=== PATIENT | male | born 1970 | race Caucasian/White ===

== ENCOUNTER 2016-09-01 15:44 | Emergency (ER) | payer MEDICARE, MEDICAID ==
[2016-09-01] MEDS ORDERED: NS 0.9% 1000 ML* 1,000 ML IV ONE ×2 (16:05→17:06)
--- NOTE | 2016-09-01 16:43 | RAD ---
INDICATION: Near syncope. Cardiovascular disease and chronic obstructive pulmonary disease. Tobacco use. COMPARISON: May 06, 2016 TECHNIQUE: Dual energy PA and routine lateral views of the chest were obtained. REPORT: Clear lungs and pleural spaces. Negative for pneumothorax. The heart, pulmonary vasculature, and mediastinal contours are unremarkable. Unremarkable osseous structures and soft tissue contours. IMPRESSION: No evidence for acute intrathoracic disease.
[2016-09-01 16:49] LABS: Hematocrit 41 % (42-52); Hemoglobin 14.7 g/dl (14.0-18.0); Mean Corpuscular HGB Conc 36 g/dl (31-36); Mean Corpuscular Hemoglobin 30 pg (27-31); Mean Corpuscular Volume 86 fL (80-94); Mean Platelet Volume 7 um3 (7.4-10.4); Red Blood Count 4.83 10^6/ul (4.0-5.4); Red Cell Distribution Width 14 % (10.5-15)
[2016-09-01 17:09] LABS: Albumin 3.8 g/dL (3.2-5.2); Ammonia 46 mol/L (16-53); BUN/Creatinine Ratio 14.5 (8-20); Calcium 9.2 mg/dL (8.6-10.3); EGFR African American 128.8 (>60); EGFR Non-African American 100.2 (>60); Globulin 2.3 g/dL (2-4); Magnesium 2.2 mg/dL (1.9-2.7); Potassium 3.9 mmol/L (3.5-5.0); Total Bilirubin 0.4 mg/dL (0.2-1.0); Total Protein 6.1 g/dL (6.4-8.9)
[2016-09-01 17:11] LABS: B Type Natriuretic Peptide 9 pg/mL
[2016-09-01 17:26] LABS: TSH (Thyroid Stimulating Horm) 1.31 mcIU/mL (0.34-5.60)
[2016-09-01 18:39] VITALS: BP 123/88
--- NOTE | 2016-09-01 19:06 | ED ---
Johann Maier Anna, scribed for Varinder Abdi MD on 09/01/16 at 1613 . Syncope/Near Syncope - HPI Summary HPI Summary: Patient is a 45 y/o male coming to [facility] following intermittent near syncopal episodes that began three days ago. He has been experiencing chills, dizziness, lightheadedness, coughing, diarrhea, and SOB for three days. He experiences some left-sided chest pain when coughing. Denies nausea, vomiting, fever, rhinorrhea. - History Of Current Complaint Chief Complaint: EDDizziness Time Seen by Provider: 09/01/16 16:05 Hx Obtained From: Patient - Allergies/Home Medications Allergies/Adverse Reactions: Allergies Allergy/AdvReac Type Severity Reaction Status Date / Time Phenytoin [From Dilantin] Allergy Severe Swelling Verified 09/01/16 16:01 Of Face,Lips,& Throat Etodolac Allergy Intermediate Swelling Verified 09/01/16 16:01 Of Face,Lips,& Throat Ketorolac Allergy Swelling Verified 09/01/16 16:01 Of Face,Lips,& Throat Ketorolac Tromethamine Allergy Anaphylatic Verified 09/01/16 16:01 [From Toradol] Shock PMH/Surg Hx/FS Hx/Imm Hx Endocrine/Hematology History: Denies: Hx Anticoagulant Therapy, Hx Blood Disorders, Hx Diabetes, Hx Thyroid Disease Cardiovascular History: Reports: Hx Angina, Hx Coronary Artery Disease, Hx Hypercholesterolemia, Hx Hypertension, Hx Myocardial Infarction, Other Cardiovascular Problems/Disorders - cva Denies: Hx Pacemaker/ICD, Hx Valvular Heart Disease Respiratory History: Reports: Hx Chronic Obstructive Pulmonary Disease (COPD) Denies: Hx Asthma GI History: Reports: Hx Ulcer History: Denies: Hx Renal Disease Musculoskeletal History: Reports: Hx Arthritis Sensory History: Denies: Hx Hearing Aid Neurological History: Reports: Hx CVA, Hx Seizures, Other Neuro Impairments/ Disorders - BRAIN TUMOR Denies: Hx Dementia Psychiatric History: Denies: Hx Panic Disorder, Hx Substance Abuse - Cancer History Cancer Type, Location and Year: 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 Hx Chemotherapy: No Hx Radiation Therapy: No - Surgical History Surgery Procedure, Year, and Place: BRAIN-STEALTH & BIOPSIES(SEVERAL) @ [facility] [place]; BOTH ELBOWS; Rt SHOULDER-ROTATOR; BOTH KNEES ACL REPAIR, BILAT KNEE REPLACEMENT - Immunization History Date of Tetanus Vaccine: Unsure Infectious Disease History: No Infectious Disease History: Reports: Hx of Known/Suspected MRSA - Right arm lump , 2002 Denies: Hx Clostridium Difficile, Hx Hepatitis, Hx Human Immunodeficiency Virus (HIV), Hx Shingles, Hx Tuberculosis, Hx Known/Suspected VRE, Hx Known/ Suspected VRSA, History Other Infectious Disease, Traveled Outside the [place] in Last 30 Days - Family History Known Family History: Positive: Cardiac Disease, Hypertension, Diabetes, Other - [place] - Social History Lives: With Family Alcohol Use: None Hx Substance Use: No Substance Use Type: Reports: None Hx Tobacco Use: Yes Smoking Status (MU): Heavy Every Day Tobacco Smoker Type: Cigarettes Amount Used/How Often: 1 ppd Review of Systems Positive: Chills Positive: Chest Pain Positive: Shortness Of Breath, Cough Positive: Diarrhea Neurological: Other - dizziness, lightheadedness Positive: Syncope - near All Other Systems Reviewed And Are Negative: Yes Physical Exam - Summary Physical Exam Summary: VITAL SIGNS: Reviewed. GENERAL: Patient is an obese male who is lying comfortable in the stretcher. Patient is not in any acute respiratory distress. HEAD AND FACE: No signs of trauma. No ecchymosis, hematomas or skull depressions. No sinus tenderness. EYES: PERRLA, EOMI x 2, No injected conjunctiva, no nystagmus. EARS: Hearing grossly intact. Ear canals and tympanic membranes are within normal limits. MOUTH: Oropharynx within normal limits. NECK: Supple, trachea is midline, no adenopathy, no JVD, no carotid bruit, no c- spine tenderness, neck with full ROM. CHEST: Symmetric, no tenderness at palpation LUNGS: Clear to auscultation bilaterally. No wheezing or crackles. CVS: Regular rate and rhythm, S1 and S2 present, no murmurs or gallops appreciated. ABDOMEN: Soft, non-tender. No signs of distention. No rebound no guarding, and no masses palpated. Bowel sounds are normal. EXTREMITIES: FROM in all major joints, no edema, no cyanosis or clubbing. NEURO: Alert and oriented x 3. No acute neurological deficits. Speech is normal and follows commands. SKIN: Dry and warm Triage Information Reviewed: Yes Vital Signs On Initial Exam: Initial Vitals Temp Pulse Resp BP Pulse Ox 98.3 F 80 16 119/67 96 09/01/16 15:57 09/01/16 15:57 09/01/16 15:57 09/01/16 15:57 09/01/16 15:57 Vital Signs Reviewed: Yes Diagnostics - Vital Signs Vital Signs Temp Pulse Resp BP Pulse Ox 09/01/16 15:57 98.3 F 80 16 119/67 96 - Laboratory Lab Results: Lab Results 09/01/16 09/01/16 09/01/16 Range/Units 16:30 16:30 16:30 WBC 6.0 (3.5-10.8) 10^3/ul RBC 4.83 (4.0-5.4) 10^6/ul Hgb 14.7 (14.0-18.0) g/dl Hct 41 L (42-52) % MCV 86 (80-94) fL MCH 30 (27-31) pg MCHC 36 (31-36) g/dl RDW 14 (10.5-15) % Plt Count 135 L (150-450) 10^3/ul MPV 7 L (7.4-10.4) um3 Neut % (Auto) 60.9 (38-83) % Lymph % (Auto) 25.9 (25-47) % Mingo % (Auto) 9.2 H (1-9) % Eos % (Auto) 2.8 (0-6) % Baso % (Auto) 1.2 (0-2) % Absolute Neuts (auto) 3.6 (1.5-7.7) 10^3/ul Absolute Lymphs (auto) 1.5 (1.0-4.8) 10^3/ul Absolute Monos (auto) 0.6 (0-0.8) 10^3/ul Absolute Eos (auto) 0.2 (0-0.6) 10^3/ul Absolute Basos (auto) 0.1 (0-0.2) 10^3/ul Absolute Nucleated RBC 0.02 10^3/ul Nucleated RBC % 0.3 Sodium Pending Potassium Pending Chloride Pending Carbon Dioxide Pending Anion Gap Pending BUN Pending Creatinine Pending Est GFR ( Amer) Pending Est GFR (Non-Af Amer) Pending BUN/Creatinine Ratio Pending Glucose Pending Lactic Acid 1.2 (0.5-2.0) mmol/L Calcium Pending Magnesium Pending Total Bilirubin Pending AST Pending ALT Pending Alkaline Phosphatase Pending Troponin I 0.00 (<0.04) ng/mL Total Protein Pending Albumin Pending Globulin Pending Albumin/Globulin Ratio Pending TSH Pending Result Diagrams: 09/01/16 16:30 09/01/16 16:30 Lab Statement: Any lab studies that have been ordered have been reviewed, and results considered in the medical decision making process. - Radiology CXR Xray Interpretation: No Acute Changes Radiology Interpretation Completed By: Radiologist - EKG 16:02 Cardiac Rate: NL - 77 bpm EKG Rhythm: Sinus Rhythm EKG Interpretation: No S/T elevation Course/Dx Assessment/Plan: Patient is a 45 y/o male coming to [facility] following intermittent near syncopal episodes that began three days ago. He has been experiencing chills, dizziness, lightheadedness, coughing, diarrhea, and SOB for three days. He experiences some left-sided chest pain when coughing. Denies nausea, vomiting, fever, rhinorrhea. Blood work wnl. Influenza A and B negative. CXR shows no acute disease. EKG: NSR at 77 BPM similar to a previous EKG done in 05/07/16. Likely patient has a viral cough vs viral bronchitis. He will be given a prescription for mucinex and he will be discharged home with f/u of PMD>. I discussed all the findings and test results with the patient. Patient was instructed to return to the emergency room immediately if any of the symptoms return or worsens. Patient understand and agree. Plan of care was discussed with the patient and understands and agrees. All questions were answered at patient satisfaction. There were no further complaints or concerns. Lung exam before discharge: CTA B/L. Good air exchange. No wheezing or crackles heard. CVS: S1 and S2 present. No murmurs appreciated. Patient is alert and oriented x 3. Patient is hemodynamically stable. Patient will be discharged home with follow up camp guard in the next 2-3 days - Diagnoses Differential Diagnosis/HQI/PQRI: Positive: Other - URI, Bronchitis, PNA Provider Diagnoses: URI, acute, Bronchitis Discharge - Discharge Plan Condition: Stable Disposition: HOME Prescriptions: GuaiFENesin DM* [Robitussin DM*] 10 ml PO Q6H PRN #120 ml PRN Reason: Cough Patient Education Materials: Upper Respiratory Infection (ED), Acute Bronchitis (ED) Referrals: Benja Lowery MD [Primary Care Provider] - Additional Instructions: Follow up with primary care physician within 24 hours. Return to the emergency department for changing or worsening symptoms. The documentation as recorded by the Johann butler Anna accurately reflects the service I personally performed and the decisions made by Jin mireles Walter, MD.
== END 2016-09-01 19:34 | disposition home or self-care (01) ==
LOC: ED 15:44
DX: J06.9 Acute upper respiratory infection, unspecified (principal); J40 Bronchitis, not specified as acute or chronic; R55 Syncope and collapse; Z87.891 Personal history of nicotine dependence; R68.83 Chills (without fever); R07.9 Chest pain, unspecified; R06.02 Shortness of breath; R19.7 Diarrhea, unspecified; F17.210 Nicotine dependence, cigarettes, uncomplicated
CPT/HCPCS: 36415; 71020; 80053; 82140; 83605; 83735; 83880; 84443; 84484; 85025; 87502; 93005; 96360; 99283

== ENCOUNTER 2016-09-13 07:57 | Emergency (ER) | payer MEDICARE, MEDICAID ==
[2016-09-13 08:49] VITALS: BP 137/96
--- NOTE | 2016-09-13 08:58 | UC ---
Respiratory Complaint HPI - HPI Summary HPI Summary: 45 M presents with cough, congestion, and chills, runny nose for a week. Seen in ER and flu was negative and chest xray normal. given robitussin and says that has been helping. He denies any chest pain or SOB or leg swelling. He denies any nausea, vomiting or diarrhea or abdominal pain and he has not passed out since. Says cough has been getting worst. No history of COPD. PMH of brain CA, is smoker - History of Current Complaint Chief Complaint: UCRespiratory Stated Complaint: CHILLS CONGESTION COUGH Time Seen by Provider: 09/13/16 08:57 - Allergies/Home Medications Allergies/Adverse Reactions: Allergies Allergy/AdvReac Type Severity Reaction Status Date / Time Phenytoin [From Dilantin] Allergy Severe Swelling Verified 09/13/16 08:40 Of Face,Lips,& Throat Etodolac Allergy Intermediate Swelling Verified 09/13/16 08:40 Of Face,Lips,& Throat Ketorolac Allergy Swelling Verified 09/13/16 08:40 Of Face,Lips,& Throat Ketorolac Tromethamine Allergy Anaphylatic Verified 09/13/16 08:40 [From Toradol] Shock Home Medications: Home Medications amLODIPine TAB* [Norvasc TAB*] 1 tab PO DAILY 09/13/16 [History Confirmed ] PMH/Surg Hx/FS Hx/Imm Hx Endocrine History Of: Denies: Diabetes, Thyroid Disease Cardiovascular History Of: Reports: Cardiac Disorders - [place] 2015, Hypertension, Myocardial Infarction Denies: Pacemaker/ICD Respiratory History Of: Reports: COPD Denies: Asthma GI/ History Of: Reports: Gastroesophageal Reflux - on nexium, Ulcer Denies: Renal Disease Neurological History Of: Reports: CVA, Seizures Denies: Dementia Other History Of: Negative For: Anticoagulant Therapy - Surgical History Surgical History: Yes Surgery Procedure, Year, and Place: BRAIN-STEALTH & BIOPSIES(SEVERAL) @ [facility]; BOTH ELBOWS; Rt SHOULDER-ROTATOR; BOTH KNEES ACL REPAIR, BILAT KNEE REPLACEMENT - Family History Known Family History: Positive: Unknown, Cardiac Disease, Hypertension, Diabetes , Other - [place] - Social History Alcohol Use: None Substance Use Type: None Smoking Status (MU): Heavy Every Day Tobacco Smoker Type: Cigarettes Amount Used/How Often: 1 ppd Household Exposure Type: Cigarettes - Immunization History Most Recent Influenza Vaccination: last year Most Recent Tetanus Shot: utd Most Recent Pneumonia Vaccination: none Review of Systems Constitutional: Fever ENT: Nasal Discharge Respiratory: Cough Cardiovascular: Negative All Other Systems Reviewed And Are Negative: Yes Physical Exam Triage Information Reviewed: Yes Appearance: Well-Appearing Vital Signs: Initial Vital Signs Temp 97.3 F 09/13/16 08:44 Pulse 84 09/13/16 08:44 Resp 19 09/13/16 08:44 BP 137/96 09/13/16 08:44 Pulse Ox 98 09/13/16 08:44 Vital Signs Reviewed: Yes Eyes: Positive: Conjunctiva Clear ENT: Positive: Normal ENT inspection, Pharyngeal erythema - post nasal drip evident, Nasal drainage, TMs normal. Negative: Tonsillar swelling, Tonsillar exudate, Trismus, Muffled/hoarse voice Neck: Positive: Supple, Nontender, No Lymphadenopathy Respiratory: Positive: Lungs clear, Normal breath sounds, No respiratory distress, No accessory muscle use Cardiovascular: Positive: RRR UC Diagnostic Evaluation - Laboratory O2 Sat by Pulse Oximetry: 98 Respiratory Course/Dx - Course Course Of Treatment: 45 M presents with bronchitis for over a week. had workup in ER and sent up on robitussin. no evidence of consolidation on exam, no chest pain or SOB, does not have a history of COPD, will prescibe inhaler for cough, tessalon and flonase for post nasal drip, discussed even if influenza passed window to treat so no benefit to do test, explained bronchitis can last 4 weeks, advised to follow up with primary, patient agrees with plan - Differential Dx/Diagnosis Differential Diagnosis/HQI/PQRI: Bronchitis, Influenza, Lower Resp Infection Provider Diagnoses: bronchitis Discharge - Discharge Plan Condition: Good Disposition: HOME Prescriptions: Albuterol HFA INHALER* [Ventolin HFA Inhaler*] 1 puff INH Q4H PRN #1 mdi PRN Reason: Cough Benzonatate CAP* [Tessalon CAP*] 100 mg PO TID #15 cap Fluticasone NASAL SPRAY 50MCG* [Flonase NASAL SPRAY 50MCG*] 2 spray BOTH NARES DAILY #1 btl Patient Education Materials: Acute Bronchitis (ED) Referrals: Benja Lowery MD [Primary Care Provider] - Additional Instructions: Use Tessalon three times a day for cough Use inhaler for cough one spray every 4 hours as needed Use flonase one spray each nostril twice a day Use humidifier or place warm bowls of water around the room Cough can last up to 4 weeks Follow up with primary care physician Return to ED if develop chest pain or shortness of breath or any new or worsening symptoms
== END 2016-09-13 09:12 | disposition home or self-care (01) ==
LOC: UCEAST 07:57
DX: J40 Bronchitis, not specified as acute or chronic (principal); I25.2 Old myocardial infarction; I10 Essential (primary) hypertension; Z96.653 Presence of artificial knee joint, bilateral; Z88.6 Allergy status to analgesic agent; Z88.8 Allergy status to other drugs, medicaments and biological substances; F17.210 Nicotine dependence, cigarettes, uncomplicated
CPT/HCPCS: 99212; G0463

== ENCOUNTER 2016-11-25 18:17 | Emergency (ER) | payer MEDICARE, MEDICAID ==
[2016-11-25 18:23] VITALS: BP 130/93
[2016-11-25] MEDS ORDERED: Sulfamethox/Trimethoprim DS 800/160* TAB PO ONE (20:31)
--- NOTE | 2016-11-25 20:31 | ED ---
Skin Complaint - HPI Summary HPI Summary: 46M presents with potential infected lipoma on back. He states that he had a lipoma on his back for years and was told that it could be surgical removed if it ever caused him pain. He states the past two days the area was become more swollen and he has noticed some redness on the outer edge of the lipoma that is warm to the touch. He states that he feels the area is harder than normal. He denies any fevers. He states he might have scratched the area a couple days prior. - History of Current Complaint Chief Complaint: EDGeneral Time Seen by Provider: 11/25/16 19:40 Stated Complaint: LUMP ON BACK Pain Intensity: 9 - Allergy/Home Medications Allergies/Adverse Reactions: Allergies Allergy/AdvReac Type Severity Reaction Status Date / Time Phenytoin [From Dilantin] Allergy Severe Swelling Verified 11/25/16 19:16 Of Face,Lips,& Throat Etodolac Allergy Intermediate Swelling Verified 11/25/16 19:16 Of Face,Lips,& Throat Ketorolac Allergy Swelling Verified 11/25/16 19:16 Of Face,Lips,& Throat Ketorolac Tromethamine Allergy Anaphylatic Verified 11/25/16 19:16 [From Toradol] Shock PMH/Surg Hx/FS Hx/Imm Hx Endocrine/Hematology History: Denies: Hx Anticoagulant Therapy, Hx Blood Disorders, Hx Diabetes, Hx Thyroid Disease Cardiovascular History: Reports: Hx Angina, Hx Coronary Artery Disease, Hx Hypercholesterolemia, Hx Hypertension, Hx Myocardial Infarction, Other Cardiovascular Problems/Disorders - cva Denies: Hx Pacemaker/ICD, Hx Valvular Heart Disease Respiratory History: Reports: Hx Chronic Obstructive Pulmonary Disease (COPD) Denies: Hx Asthma GI History: Reports: Hx Ulcer History: Denies: Hx Renal Disease Musculoskeletal History: Reports: Hx Arthritis Sensory History: Denies: Hx Hearing Aid Neurological History: Reports: Hx CVA, Hx Seizures, Other Neuro Impairments/ Disorders - BRAIN TUMOR Denies: Hx Dementia Psychiatric History: Denies: Hx Panic Disorder, Hx Substance Abuse - Cancer History Cancer Type, Location and Year: 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 Hx Chemotherapy: No Hx Radiation Therapy: No - Surgical History Surgery Procedure, Year, and Place: BRAIN-STEALTH & BIOPSIES(SEVERAL) @ [facility]; BOTH ELBOWS; Rt SHOULDER-ROTATOR; BOTH KNEES ACL REPAIR, BILAT KNEE REPLACEMENT - Immunization History Date of Tetanus Vaccine: Unsure Infectious Disease History: No Infectious Disease History: Reports: Hx of Known/Suspected MRSA - Right arm lump , 2002 Denies: Hx Clostridium Difficile, Hx Hepatitis, Hx Human Immunodeficiency Virus (HIV), Hx Shingles, Hx Tuberculosis, Hx Known/Suspected VRE, Hx Known/ Suspected VRSA, History Other Infectious Disease, Traveled Outside the [place] in Last 30 Days - Family History Known Family History: Positive: Unknown, Cardiac Disease, Hypertension, Diabetes , Other - [place] - Social History Alcohol Use: None Hx Substance Use: No Substance Use Type: Reports: None Hx Tobacco Use: Yes Smoking Status (MU): Heavy Every Day Tobacco Smoker Type: Cigarettes Amount Used/How Often: 1 ppd Review of Systems Negative: Fever Negative: Chest Pain Negative: Shortness Of Breath Positive: Other - swelling and redness of lipoma on back All Other Systems Reviewed And Are Negative: Yes Physical Exam Triage Information Reviewed: Yes Vital Signs On Initial Exam: Initial Vitals Temp Pulse Resp BP Pulse Ox 97.0 F 105 20 130/93 98 11/25/16 18:21 11/25/16 18:21 11/25/16 18:21 11/25/16 18:21 11/25/16 18:21 Vital Signs Reviewed: Yes Appearance: Positive: Well-Appearing Skin: Positive: Warm, Dry, Other - 4cm by 5cm lipoma present on midback on right side of spinous processes that is soft and mobile, 3cm by 4cm area of erythema present on lateral aspect of lipoma with possible area of induration underneath but unable to accurately tell due to presence of lipoma. Head/Face: Positive: Normal Head/Face Inspection Eyes: Positive: Normal, Conjunctiva Clear Respiratory/Lung Sounds: Positive: Clear to Auscultation, Breath Sounds Present Cardiovascular: Positive: Normal, RRR Procedures - Incision and Drainage Site: back Anesthesia: Local Instrument(s): Needle - unable to express any pus Diagnostics - Vital Signs Vital Signs Temp Pulse Resp BP Pulse Ox 11/25/16 19:12 97.0 F 105 20 130/93 98 11/25/16 18:21 97.0 F 105 20 130/93 98 - Laboratory Lab Statement: Any lab studies that have been ordered have been reviewed, and results considered in the medical decision making process. Course/Dx - Course Course Of Treatment: 46M presents with pain in lipoma for 2 days. states area feels more swollen and also noticed some redness. on exam area of erythema present on lateral aspect of lipoma and onto skin next to lipoma. due possible area of infection being on the lipoma unable to tell if area of induration or if it is just the lipoma. cleaned area with betadaine and attempted I&D with needle and was unable to express anything. will treat as cellulitis at this time. told to start warm compresses and follow up with surgery to potential remove lipoma. patient understands and agrees with plan - Differential Diagnoses - Skin Complaint Differential Diagnoses: Abscess, Cellulitis, Other - lipoma - Diagnoses Provider Diagnoses: Cellulitis of back, Lipoma of back Discharge - Discharge Plan Condition: Good Disposition: HOME Prescriptions: Sulfamethox/Trimethoprim DS* [Bactrim DS 800/160 TAB*] 1 tab PO BID #19 tab Patient Education Materials: Cellulitis (ED) Referrals: Dillon Sosa MD [Medical Doctor] - Benja Lowery MD [Primary Care Provider] - Additional Instructions: Take antibiotic twice a day for [address] warm compresses on area Follow up with surgery to potential have lipoma removed Take normal pain medication Return to ED if develop any fevers, spreading redness or any new or worsening symptoms
== END 2016-11-25 20:53 | disposition home or self-care (01) ==
LOC: ED 18:17
DX: R22.2 Localized swelling, mass and lump, trunk (principal); Z53.21 Procedure and treatment not carried out due to patient leaving prior to being seen by health care provider
CPT/HCPCS: A9270-GY

== ENCOUNTER 2017-03-23 18:22 | Emergency (ER) | payer MEDICARE, MEDICAID ==
[2017-03-23] MEDS ORDERED: Morphine INJ* 4 MG/ML 1 ML SYRINGE IV ONE (18:49)
[2017-03-23] MEDS ORDERED: NS 0.9% 1000 ML* 2,000 ML IV ONE (18:49)
[2017-03-23] MEDS ORDERED: Ondansetron INJ* 2 MG/ML VIAL IV ONE (18:49)
--- NOTE | 2017-03-23 19:25 | RAD ---
CLINICAL HISTORY: 2 hours of left lower quadrant pain COMPARISON: CT July 20, 2015 TECHNIQUE: Noncontrast CT examination of the abdomen and pelvis from the lung bases through the initial tuberosities. FINDINGS: VISUALIZED LUNG BASES: The visualized lung bases are grossly clear. There is no pleural effusion. ABDOMEN AND PELVIS: Evaluation of the solid organs and vasculature is limited without intravenous contrast. The liver is homogenously hypodense and measures 21 cm in greatest cephalocaudal projection. The spleen, pancreas and adrenal glands are grossly normal in appearance. The gallbladder is normal. At the lower pole the left collecting system there is a 2 mm calcification. The kidneys are normal in appearance without focal mass, calcification or signs of hydronephrosis. Evaluation of the gastrointestinal tract is limited without oral contrast. The small and large bowel are not distended.The patient's normal appendix is identified in the right lower quadrant measuring 5 mm in diameter (axial image 154). There is no gross retroperitoneal or mesenteric lymphadenopathy. The pelvic viscera is normal in appearance. The abdominal aorta and iliac arteries are normal in course and diameter. Degenerative changes include multilevel loss of intervertebral disc height involving the lower thoracic and lumbar spine. 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 There are no sinister bone lesions. IMPRESSION: 1. Nonobstructing renal calculus at the lower pole of the left kidney without signs of urinary obstruction or acute inflammatory change. 2. Hepatic steatosis with mild hepatomegaly. 3. Additional chronic and degenerative changes described in body the report.
[2017-03-23 19:33] VITALS: BP 118/69
[2017-03-23 19:35] LABS: Hematocrit 41 % (42-52); Hemoglobin 14.6 g/dl (14.0-18.0); Mean Corpuscular HGB Conc 35 g/dl (31-36); Mean Corpuscular Hemoglobin 32 pg (27-31); Mean Corpuscular Volume 89 fL (80-94); Mean Platelet Volume 8 um3 (7.4-10.4); Red Blood Count 4.64 10^6/ul (4.0-5.4); Red Cell Distribution Width 14 % (10.5-15); White Blood Count 7.1 10^3/ul (3.5-10.8)
--- NOTE | 2017-03-23 19:38 | RAD ---
INDICATION: Left testicular vein COMPARISON: Similar sonogram dated April 04, 2015 TECHNIQUE: Duplex interrogation of the scrotum was performed. FINDINGS: The testicles are normal in size and echogenicity. There is no evidence for testicular mass. The right testis measures 5.2 x 2.4 x 3.4 cm and the left 5.3 x 2.5 x 3.1 cm. There is symmetric flow on Doppler interrogation. Arterial and venous waveforms are identified bilaterally. The right epididymal head measures 1.3 x 0.9 cm and the left 0.9 x 1.2 cm. The right epididymal head there is a 4 x 2 x 2 mm anechoic and avascular cyst. There are no hydroceles. There are no varicoceles. Fat-containing wall hernias are noted bilaterally. IMPRESSION: 1. Bilateral fat-containing inguinal hernias. 2. Stable right epididymal head cyst in this otherwise normal testicular sonogram.
[2017-03-23 19:50] LABS: Albumin 4.2 g/dL (3.2-5.2); BUN/Creatinine Ratio 14.4 (8-20); C Reactive Protein 3.04 mg/L (< 5.00); EGFR African American 107.2 (>60); EGFR Non-African American 83.3 (>60); Globulin 2.4 g/dL (2-4); Potassium 2.8 mmol/L (3.5-5.0); Total Bilirubin 0.4 mg/dL (0.2-1.0); Total Protein 6.6 g/dL (6.4-8.9)
[2017-03-23 20:06] LABS: Urine Bacteria Absent (Absent); Urine Bilirubin Negative (Negative); Urine Glucose Negative (Negative); Urine Nitrite Negative (Negative)
--- NOTE | 2017-03-23 20:50 | ED ---
Miguel Maier Angela, scribed for Cody Elmore MD on 03/23/17 at 1911 . Abdominal Pain/Male - HPI Summary HPI Summary: 46 y.o male presents to the ED with abdominal pain x6 months, worse today over the past 2 hours. Pt notes his pain today started suddenly and his pain radiates form groin area to his abdomen and lower back. He describes his pain as a "stabbing" pain. Pt reports his pain is alleviated when sitting up and it is exacerbated with movement, rating it 9 out of 10 in severity. Pt endorses testicle pain and decreased urinary frequency but denies fever, chills, dysuria , bloody stools, diarrhea, nausea. Pt notes that he has lost 40 lbs over the past 3 months. He states he had an endoscopy and colonoscopy, which were all normal. Pt denies any history of kidney stones. - History of Current Complaint Chief Complaint: EDAbdPain Stated Complaint: LEFT SIDE ABD PAIN Time Seen by Provider: 03/23/17 18:39 Hx Obtained From: Patient Onset/Duration: Sudden Onset Timing: Constant Pain Intensity: 9 - At its worst Location: Groin Radiates: Yes Radiates to: Back, LLQ Character: Other: - Stabbing Aggravating Factor(s): Movement Alleviating Factor(s): Other: - Sitting up Associated Signs And Symptoms: Positive: Back Pain, Urinary Symptoms - Decreased urinary frequency. Negative: Fever, Blood in Stool, Nausea, Diarrhea - Allergies/Home Medications Allergies/Adverse Reactions: Allergies Allergy/AdvReac Type Severity Reaction Status Date / Time Phenytoin [From Dilantin] Allergy Severe Swelling Verified 03/23/17 19:32 Of Face,Lips,& Throat Etodolac Allergy Intermediate Swelling Verified 03/23/17 19:32 Of Face,Lips,& Throat Ketorolac Allergy Swelling Verified 03/23/17 19:32 Of Face,Lips,& Throat Ketorolac Tromethamine Allergy Anaphylatic Verified 03/23/17 19:32 [From Toradol] Shock PMH/Surg Hx/FS Hx/Imm Hx Endocrine/Hematology History: Denies: Hx Anticoagulant Therapy, Hx Blood Disorders, Hx Diabetes, Hx Thyroid Disease Cardiovascular History: Reports: Hx Angina, Hx Coronary Artery Disease, Hx Hypercholesterolemia, Hx Hypertension, Hx Myocardial Infarction, Other Cardiovascular Problems/Disorders - cva Denies: Hx Pacemaker/ICD, Hx Valvular Heart Disease Respiratory History: Reports: Hx Chronic Obstructive Pulmonary Disease (COPD) Denies: Hx Asthma GI History: Reports: Hx Ulcer History: Denies: Hx Renal Disease Musculoskeletal History: Reports: Hx Arthritis Sensory History: Denies: Hx Hearing Aid Neurological History: Reports: Hx CVA, Hx Seizures, Other Neuro Impairments/ Disorders - BRAIN TUMOR Denies: Hx Dementia Psychiatric History: Denies: Hx Panic Disorder, Hx Substance Abuse - Cancer History Cancer Type, Location and Year: 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 Hx Chemotherapy: No Hx Radiation Therapy: No - Surgical History Surgery Procedure, Year, and Place: BRAIN-STEALTH & BIOPSIES(SEVERAL) @ [facility]; BOTH ELBOWS; Rt SHOULDER-ROTATOR; BOTH KNEES ACL REPAIR, BILAT KNEE REPLACEMENT - Immunization History Date of Tetanus Vaccine: Unsure Infectious Disease History: Reports: Hx of Known/Suspected MRSA - Right arm lump , 2002 Denies: Hx Clostridium Difficile, Hx Hepatitis, Hx Human Immunodeficiency Virus (HIV), Hx Shingles, Hx Tuberculosis, Hx Known/Suspected VRE, Hx Known/ Suspected VRSA, History Other Infectious Disease, Traveled Outside the [place] in Last 30 Days - Family History Known Family History: Positive: Cardiac Disease, Hypertension, Diabetes, Other - [place] - Social History Alcohol Use: None Hx Substance Use: No Substance Use Type: Reports: None Hx Tobacco Use: Yes Smoking Status (MU): Heavy Every Day Tobacco Smoker Type: Cigarettes Amount Used/How Often: 1 ppd Review of Systems Negative: Fever, Chills Positive: Abdominal Pain. Negative: Diarrhea, Nausea Positive: frequency - Decreased frequency, other - Groin pain; NEGATIVE: bloody stools. Negative: dysuria Positive: Other - Back pain All Other Systems Reviewed And Are Negative: Yes Physical Exam - Summary Physical Exam Summary: General: well-appearing, mild pain distress Skin: warm, color reflects adequate perfusion, dry Head: normal Eyes: EOMI, MICKI ENT: normal Neck: supple, nontender Respiratory: CTA, breath sounds present Cardiovascular: RRR Abdomen: soft, tender on the LLQ : Left testicle tenderness on L inguinal canal, both testicles not swollen, no erythema in scrotum, Bowel: present Musculoskeletal: normal, strength/ROM intact Neurological: normal, sensory/motor intact, A&O x3 Psychological: affect/mood appropriate Triage Information Reviewed: Yes Vital Signs On Initial Exam: Initial Vitals Temp Pulse Resp BP Pulse Ox 97 F 88 16 126/85 97 03/23/17 18:25 03/23/17 18:25 03/23/17 18:25 03/23/17 18:25 03/23/17 18:25 Vital Signs Reviewed: Yes Diagnostics - Vital Signs Vital Signs Temp Pulse Resp BP Pulse Ox 03/23/17 18:25 97 F 88 16 126/85 97 - Laboratory Lab Results: Lab Results 03/23/17 03/23/17 03/23/17 Range/Units 19:25 19:25 19:25 WBC 7.1 (3.5-10.8) 10^3/ul RBC 4.64 (4.0-5.4) 10^6/ul Hgb 14.6 (14.0-18.0) g/dl Hct 41 L (42-52) % MCV 89 (80-94) fL MCH 32 H (27-31) pg MCHC 35 (31-36) g/dl RDW 14 (10.5-15) % Plt Count 180 (150-450) 10^3/ul MPV 8 (7.4-10.4) um3 Neut % (Auto) 59.4 (38-83) % Lymph % (Auto) 29.8 (25-47) % Teller % (Auto) 7.8 (1-9) % Eos % (Auto) 2.0 (0-6) % Baso % (Auto) 1.0 (0-2) % Absolute Neuts (auto) 4.2 (1.5-7.7) 10^3/ul Absolute Lymphs (auto) 2.1 (1.0-4.8) 10^3/ul Absolute Monos (auto) 0.6 (0-0.8) 10^3/ul Absolute Eos (auto) 0.1 (0-0.6) 10^3/ul Absolute Basos (auto) 0.1 (0-0.2) 10^3/ul Absolute Nucleated RBC 0 10^3/ul Nucleated RBC % 0 INR (Anticoag Therapy) 0.88 L (0.89-1.11) APTT 27.9 (26.0-36.3) seconds Sodium 135 (133-145) mmol/L Potassium 2.8 L (3.5-5.0) mmol/L Chloride 101 (101-111) mmol/L Carbon Dioxide 29 (22-32) mmol/L Anion Gap 5 (2-11) mmol/L BUN 14 (6-24) mg/dL Creatinine 0.97 (0.67-1.17) mg/dL Est GFR ( Amer) 107.2 (>60) Est GFR (Non-Af Amer) 83.3 (>60) BUN/Creatinine Ratio 14.4 (8-20) Glucose 98 (70-100) mg/dL Lactic Acid (0.5-2.0) mmol/L Calcium 9.0 (8.6-10.3) mg/dL Total Bilirubin 0.40 (0.2-1.0) mg/dL AST 29 (13-39) U/L ALT 37 (7-52) U/L Alkaline Phosphatase 56 (34-104) U/L C-Reactive Protein 3.04 (< 5.00) mg/L Total Protein 6.6 (6.4-8.9) g/dL Albumin 4.2 (3.2-5.2) g/dL Globulin 2.4 (2-4) g/dL Albumin/Globulin Ratio 1.8 (1-3) Lipase 15 (11.0-82.0) U/L Urine Color Urine Appearance Urine pH (5-9) Ur Specific [place] (1.010-1.030) Urine Protein (Negative) Urine Ketones (Negative) Urine Blood (Negative) Urine Nitrate (Negative) Urine Bilirubin (Negative) Urine Urobilinogen (Negative) Ur Leukocyte Esterase (Negative) Urine WBC (Auto) (Absent) Urine RBC (Auto) (Absent) Ur Squamous Epith Cells (Absent) Urine Bacteria (Absent) Urine Glucose (Negative) 03/23/17 03/23/17 Range/Units 19:25 19:40 WBC (3.5-10.8) 10^3/ul RBC (4.0-5.4) 10^6/ul Hgb (14.0-18.0) g/dl Hct (42-52) % MCV (80-94) fL MCH (27-31) pg MCHC (31-36) g/dl RDW (10.5-15) % Plt Count (150-450) 10^3/ul MPV (7.4-10.4) um3 Neut % (Auto) (38-83) % Lymph % (Auto) (25-47) % Teller % (Auto) (1-9) % Eos % (Auto) (0-6) % Baso % (Auto) (0-2) % Absolute Neuts (auto) (1.5-7.7) 10^3/ul Absolute Lymphs (auto) (1.0-4.8) 10^3/ul Absolute Monos (auto) (0-0.8) 10^3/ul Absolute Eos (auto) (0-0.6) 10^3/ul Absolute Basos (auto) (0-0.2) 10^3/ul Absolute Nucleated RBC 10^3/ul Nucleated RBC % INR (Anticoag Therapy) (0.89-1.11) APTT (26.0-36.3) seconds Sodium (133-145) mmol/L Potassium (3.5-5.0) mmol/L Chloride (101-111) mmol/L Carbon Dioxide (22-32) mmol/L Anion Gap (2-11) mmol/L BUN (6-24) mg/dL Creatinine (0.67-1.17) mg/dL Est GFR ( Amer) (>60) Est GFR (Non-Af Amer) (>60) BUN/Creatinine Ratio (8-20) Glucose (70-100) mg/dL Lactic Acid 1.0 (0.5-2.0) mmol/L Calcium (8.6-10.3) mg/dL Total Bilirubin (0.2-1.0) mg/dL AST (13-39) U/L ALT (7-52) U/L Alkaline Phosphatase (34-104) U/L C-Reactive Protein (< 5.00) mg/L Total Protein (6.4-8.9) g/dL Albumin (3.2-5.2) g/dL Globulin (2-4) g/dL Albumin/Globulin Ratio (1-3) Lipase (11.0-82.0) U/L Urine Color Yellow Urine Appearance Clear Urine pH 6.0 (5-9) Ur Specific [place] 1.023 (1.010-1.030) Urine Protein Negative (Negative) Urine Ketones Negative (Negative) Urine Blood Negative (Negative) Urine Nitrate Negative (Negative) Urine Bilirubin Negative (Negative) Urine Urobilinogen Negative (Negative) Ur Leukocyte Esterase Trace H (Negative) Urine WBC (Auto) Trace(0-5/hpf) (Absent) Urine RBC (Auto) Trace(0-2/hpf) (Absent) Ur Squamous Epith Cells Present H (Absent) Urine Bacteria Absent (Absent) Urine Glucose Negative (Negative) Result Diagrams: 03/23/17 19:25 03/23/17 19:25 Lab Statement: Any lab studies that have been ordered have been reviewed, and results considered in the medical decision making process. - CT CT Abd/Pel CT Interpretation: Positive (See Comments) - IMPRESSION: 1. Nonobstructing renal calculus at the lower pole of the left kidney without signs of urinary obstruction or acute inflammatory change. 2. Hepatic steatosis with mild hepatomegaly. 3. Additional chronic and degenerative changes described in body the report. CT Interpretation Completed By: Radiologist - Ultrasound No standard instances Ultrasound Interpretation: Positive (See Comments) - Testicular US: IMPRESSION: 1. Bilateral fat-containing inguinal hernias. 2. Stable right epididymal head cyst in this otherwise normal testicular sonogram. 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 Abdominal Pain Fem Course/Dx - Course Course Of Treatment: DISCUSSED RESULTS WITH PATIENT. HE WILL F/U WITH HIS PMD. HE ALSO HAS RECENTLY SEEN [facility]; HE CAN ALSO F/U WITH THEM. SURGICAL REFERAL INFORMATION ALSO GIVE. PATIENT WILL RETURN IF WORSE OR QUESTIONS OR CONCERNS. - Diagnoses Provider Diagnoses: Abdominal pain, Inguinal hernia, Testicular pain, left Discharge - Discharge Plan Condition: Stable Disposition: HOME Patient Education Materials: Inguinal Hernia (ED), Acute Abdominal Pain (ED), Testicle Pain (ED) Referrals: [facility] [Provider Group] Benja Lowery MD [Primary Care Provider] - Haris Weiss MD [Medical Doctor] - Additional Instructions: FOLLOW UP WITH YOUR REGULAR DOCTOR/GI DOCTOR. IF THE CAUSE OF YOUR PAIN IS FROM YOUR HERNIA, YOU WILL NEED TO FOLLOW UP WITH SURGERY. RETURN TO THE EMERGENCY DEPARTMENT FOR ANY WORSENING OF YOUR CONDITION; PAIN, FEVER, VOMITING, YOU FEEL ILL OR QUESTIONS OR CONCERNS. The documentation as recorded by the Miguel butler Angela accurately reflects the service I personally performed and the decisions made by me, Cody Elmore MD.
== END 2017-03-23 21:12 | disposition home or self-care (01) ==
LOC: ED 18:22
DX: R10.9 Unspecified abdominal pain (principal); M54.9 Dorsalgia, unspecified; N50.812 Left testicular pain; K40.90 Unilateral inguinal hernia, without obstruction or gangrene, not specified as recurrent
CPT/HCPCS: 36415; 74176; 76870; 80053; 81003; 81015; 83605; 83690; 85025; 85610; 85730; 86140; 87086; 96374; 96375; 99282; J2270; J2405

== ENCOUNTER 2017-05-26 10:26 | Emergency (ER) | payer MEDICARE, MEDICAID | END 2017-05-26 11:20 | disposition left against medical advice (07) | LOC: UCEAST 10:26 | DX: Z53.21 Procedure and treatment not carried out due to patient leaving prior to being seen by health care provider (principal) ==

== ENCOUNTER 2017-07-10 19:18 | Emergency (ER) | payer MEDICARE, MEDICAID ==
[2017-07-10 19:32] VITALS: BP 146/104
[2017-07-10 22:23] LABS: Hematocrit 40 % (42-52); Hemoglobin 14.4 g/dl (14.0-18.0); Mean Corpuscular HGB Conc 36 g/dl (31-36); Mean Corpuscular Hemoglobin 31 pg (27-31); Mean Corpuscular Volume 88 fL (80-94); Mean Platelet Volume 7 um3 (7.4-10.4); Red Blood Count 4.59 10^6/ul (4.0-5.4); Red Cell Distribution Width 13 % (10.5-15); White Blood Count 7.3 10^3/ul (3.5-10.8)
--- NOTE | 2017-07-10 22:31 | ED ---
Nimo Maier Abhishek, scribed for Porter Chun MD on 07/10/17 at 2153 . Neurological HPI - HPI Summary HPI Summary: This patient is a 46 year old MF _presenting to [facility] with a c/o of syncope and numbness since today. Patient states he has auras and has had them in the past. Related PMHx of vasovagal syncope after coughing fits and describes episodes as a blur and states he had blacked out. Most recent episode of syncope was earlier today one hour ago. The patient rates the pain 0/10 in severity. Symptoms aggravated by stress. Symptoms alleviated by nothing. Patient reports dizziness and coughing (productive) with milky phlegm, and vertigo. - History of Current Complaint Chief Complaint: EDDizziness Stated Complaint: DIZZY SPELLS Hx Obtained From: Patient Onset/Duration: Sudden Onset - earlier today an hour ago. Pain Intensity: 0 Pain Scale Used: 0-10 Numeric Character: Dizzy, Numbness/Tingling, Visual Changes - "blur", Other: - LOC Syncope Timing: one hour ago Number of Episodes: 1 Syncope Context: Unwitnessed Frequency: Episodes x___ - 1 Aggravating: Stress Alleviating: Nothing Associated Signs and Symptoms: Positive: Loss of Consciousness, Dizziness, Numbness - Allergy/Home Medications Allergies/Adverse Reactions: Allergies Allergy/AdvReac Type Severity Reaction Status Date / Time Phenytoin [From Dilantin] Allergy Severe Swelling Verified 06/22/17 19:59 Of Face,Lips,& Throat Etodolac Allergy Intermediate Swelling Verified 06/22/17 19:59 Of Face,Lips,& Throat Ketorolac Allergy Swelling Verified 06/22/17 19:59 Of Face,Lips,& Throat Ketorolac Tromethamine Allergy Anaphylatic Verified 06/22/17 19:59 [From Toradol] Shock PMH/Surg Hx/FS Hx/Imm Hx Endocrine/Hematology History: Denies: Hx Anticoagulant Therapy, Hx Blood Disorders, Hx Diabetes, Hx Thyroid Disease Cardiovascular History: Reports: Hx Angina, Hx Coronary Artery Disease, Hx Hypercholesterolemia, Hx Hypertension, Hx Myocardial Infarction, Other Cardiovascular Problems/Disorders - cva Denies: Hx Pacemaker/ICD, Hx Valvular Heart Disease Respiratory History: Reports: Hx Chronic Obstructive Pulmonary Disease (COPD) Denies: Hx Asthma GI History: Reports: Hx Ulcer History: Denies: Hx Renal Disease Musculoskeletal History: Reports: Hx Arthritis Sensory History: Denies: Hx Hearing Aid Neurological History: Reports: Hx CVA, Hx Seizures, Other Neuro Impairments/ Disorders - BRAIN TUMOR Denies: Hx Dementia Psychiatric History: Denies: Hx Panic Disorder, Hx Substance Abuse - Cancer History Cancer Type, Location and Year: 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 Hx Chemotherapy: No Hx Radiation Therapy: No - Surgical History Surgery Procedure, Year, and Place: BRAIN-STEALTH & BIOPSIES(SEVERAL) @ [facility]; BOTH ELBOWS; Rt SHOULDER-ROTATOR; BOTH KNEES ACL REPAIR, BILAT KNEE REPLACEMENT - Immunization History Date of Tetanus Vaccine: Unsure Infectious Disease History: No Infectious Disease History: Reports: Hx of Known/Suspected MRSA - Right arm lump , 2002 Denies: Hx Clostridium Difficile, Hx Hepatitis, Hx Human Immunodeficiency Virus (HIV), Hx Shingles, Hx Tuberculosis, Hx Known/Suspected VRE, Hx Known/ Suspected VRSA, History Other Infectious Disease, Traveled Outside the [place] in Last 30 Days - Family History Known Family History: Positive: Cardiac Disease, Hypertension, Diabetes, Other - [place] - Social History Alcohol Use: None Hx Substance Use: No Substance Use Type: Reports: None Hx Tobacco Use: Yes Smoking Status (MU): Heavy Every Day Tobacco Smoker Type: Cigarettes Amount Used/How Often: 1 ppd Review of Systems Constitutional: Negative Eyes: Negative ENT: Negative Cardiovascular: Negative Positive: Cough - productive (milky phlegm) Gastrointestinal: Negative Genitourinary: Negative Musculoskeletal: Negative Skin: Negative Neurological: Other - dizziness, visual changes ("blur") Positive: Numbness, Syncope - one episode ("blacked out") Psychological: Normal All Other Systems Reviewed And Are Negative: Yes Physical Exam - Summary Physical Exam Summary: Constitutional: Well-developed, Well-nourished, Alert. (-) Distressed Skin: Warm, Dry HENT: Normocephalic; Atraumatic Eyes: Conjunctiva normal Neck: Musculoskeletal ROM normal neck. (-) JVD, (-) Stridor, (-) Tracheal deviation Cardio: Rhythm regular, rate normal, Heart sounds normal; Intact distal pulses; The pedal pulses are 2+ and symmetric. Radial pulses are 2+ and symmetric. (-) Murmur Pulmonary/Chest wall: Effort normal. (-) Respiratory distress, (-) Wheezes, (-) Rales Abd: Soft. (-) Tenderness, ~(-) Distension, (-) Guarding, (-) Rebound Musculoskeletal: (-) Edema Lymph: (-) Cervical adenopathy Neuro: Alert, Oriented x3, Strength normal, Cranial nerves II-XII are grossly intact. (-) Dysmetria, (-) Nystagmus, (-) Ataxia by finger to nose testing, (-) Sensory deficit. Psych: Mood and affect Normal Triage Information Reviewed: Yes Vital Signs On Initial Exam: Initial Vitals Temp Pulse Resp BP Pulse Ox 98.0 F 93 16 146/104 98 07/10/17 19:30 07/10/17 19:30 07/10/17 19:30 07/10/17 19:30 07/10/17 19:30 Vital Signs Reviewed: Yes Diagnostics - Vital Signs Vital Signs Temp Pulse Resp BP Pulse Ox 07/10/17 19:30 98.0 F 93 16 146/104 98 - Laboratory Lab Results: Lab Results 07/10/17 Range/Units 22:00 WBC 7.3 (3.5-10.8) 10^3/ul RBC 4.59 (4.0-5.4) 10^6/ul Hgb 14.4 (14.0-18.0) g/dl Hct 40 L (42-52) % MCV 88 (80-94) fL MCH 31 (27-31) pg MCHC 36 (31-36) g/dl RDW 13 (10.5-15) % Plt Count 206 (150-450) 10^3/ul MPV 7 L (7.4-10.4) um3 Neut % (Auto) 64.2 (38-83) % Lymph % (Auto) 25.8 (25-47) % [place] % (Auto) 7.7 (1-9) % Eos % (Auto) 1.5 (0-6) % Baso % (Auto) 0.8 (0-2) % Absolute Neuts (auto) 4.7 (1.5-7.7) 10^3/ul Absolute Lymphs (auto) 1.9 (1.0-4.8) 10^3/ul Absolute Monos (auto) 0.6 (0-0.8) 10^3/ul Absolute Eos (auto) 0.1 (0-0.6) 10^3/ul Absolute Basos (auto) 0.1 (0-0.2) 10^3/ul Absolute Nucleated RBC 0.01 10^3/ul Nucleated RBC % 0.1 Result Diagrams: 07/10/17 22:00 Lab Statement: Any lab studies that have been ordered have been reviewed, and results considered in the medical decision making process. Course/Dx - Course Course Of Treatment: This patient is a 46 year old M presenting to [facility] with a c/o of syncope and numbness since today. Patient states he has auras and has had them in the past. Pt has related PMHx of vasovagal syncope after coughing fits and describes episodes as a blur and states he had blacked out. Most recent episode of syncope was earlier today one hour ago. Patient reports dizziness. We discussed patient care with Dr. Boo and dx will be syncope. Patient is signed out to Dr. Reyes, pending disposition, awaiting Brain CT. Pt is agreeable with this plan. - Diagnoses Provider Diagnoses: Syncope - Physician Notifications Discussed Care Of Patient With: Petar Boo Instructed by Provider To: Other - Dx was discussed. Dx will be syncope. Discharge - Discharge Plan Condition: Good Disposition: ADMITTED TO [facility] Referrals: Benja Lowery MD [Primary Care Provider] - The documentation as recorded by the Nimo butler Abhishek accurately reflects the service I personally performed and the decisions made by , Porter Chun MD.
[2017-07-10 22:44] LABS: Albumin 4.2 g/dL (3.2-5.2); BUN/Creatinine Ratio 14.3 (8-20); Calcium 9.4 mg/dL (8.6-10.3); EGFR African American 79.2 (>60); EGFR Non-African American 61.6 (>60); Globulin 2.4 g/dL (2-4); Magnesium 2.1 mg/dL (1.9-2.7); Potassium 3.7 mmol/L (3.5-5.0); Total Bilirubin 0.5 mg/dL (0.2-1.0); Total Protein 6.6 g/dL (6.4-8.9)
[2017-07-10 22:45] LABS: Troponin I 0.02 ng/mL (<0.04)
--- NOTE | 2017-07-11 03:46 | ED ---
Nikhil Maier Nikita, scribed for Zan Reyes on 07/10/17 at 2358 . Progress - Progress Note Progress Note: Awaiting Head CT. Head CT reveals there is no intra-or extra-axial hemorrhage or collection. Right temporoparietal postsurgical changes are unchanged from prior CT. Area of hypoattenuation in the right basal ganglia extending anteriorly to the frontal deep white matter is unchanged. There is no midline shift. The ventricles are normal in size. Donnelly-white matter differentiation is maintained. There is an old jose martin hold in the right frontal bone. the visualized paranasal sinuses and mastoid air cells are clear. Pt refuses to be admitted. Pt will be leaving against medical advice. Course/Dx - Course Course Of Treatment: This patient is a 46 year old M presenting to [facility] with a c/o of syncope and numbness since today. Patient states he has auras and has had them in the past. Pt has related PMHx of vasovagal syncope after coughing fits and describes episodes as a blur and states he had blacked out. Most recent episode of syncope was earlier today one hour ago. Patient reports dizziness. We discussed patient care with Dr. Boo and dx will be syncope. Patient is signed out to Dr. Reyes, pending disposition, awaiting Brain CT. Pt is agreeable with this plan. - Diagnoses Provider Diagnoses: Syncope - Provider Notifications Instructed by Provider To: Other - Dx was discussed. Dx will be syncope. The documentation as recorded by the Nikhil butler Nikita accurately reflects the service I personally performed and the decisions made by Eric mireles Emmanuel.
--- NOTE | 2017-07-11 07:53 | RAD ---
INDICATION: History of brain mass, hand tingling. COMPARISON: Comparison is made with a prior CT of the brain from May 01, 2016. TECHNIQUE: Contiguous axial sections of the brain were obtained from the skull base to the vertex without contrast. FINDINGS: There appear to be surgical jose martin holes in the right frontal and temporal bones. There is a focal area of encephalomalacia present peripherally in the right temporal lobe. There is a hypodense area present in the right lentiform nucleus extending into the deep right frontal white matter which appears unchanged from the prior CT study. There is a second area of decreased density present lateral to the right caudate nucleus which appears unchanged. The ventricles and cisterns appear to be within normal limits. No mass effect or hemorrhage is seen. The visualized portion of the paranasal sinuses and mastoid air cells appear clear. IMPRESSION: POSTSURGICAL CHANGES, ENCEPHALOMALACIA AND HYPODENSE LESIONS DESCRIBED, UNCHANGED SIGNIFICANTLY FROM THE PRIOR STUDY. IF THE PATIENT'S SYMPTOMS PERSIST RECOMMEND MR IMAGING WITH CONTRAST FOR FURTHER EVALUATION.
== END 2017-07-11 00:18 | disposition home or self-care (01) ==
LOC: ED 19:18
DX: R55 Syncope and collapse (principal)
CPT/HCPCS: 36415; 70450; 80053; 83735; 84484; 85025; 85610; 93005; 99284

== ENCOUNTER 2017-08-03 16:50 | Emergency (ER) | payer MEDICARE, MEDICAID ==
[2017-08-03 16:54] VITALS: BP 139/86
--- NOTE | 2017-08-03 17:25 | RAD ---
INDICATION: Left wrist injury COMPARISON: August 12, 2016 TECHNIQUE: AP, lateral, and oblique views were obtained. FINDINGS: There are no acute bony findings. There is minor osteophytes but the radiocarpal joint and the distal pole of the navicular. The soft tissues are intact IMPRESSION: MINOR OSTEOARTHRITIS. NO ACUTE BONY FINDINGS
--- NOTE | 2017-08-03 18:04 | ED ---
Upper Extremity Pain - HPI Summary HPI Summary: 46M presents s/p fall with left wrist injury. He states that he slipped and landed on his left wrist. He denies any previous injury to the area. He has history of left elbow pain. He has brain CA. He denies any numbness or tingling. He denies any chest pain or SOB or dizziness. The fall was mechanical. He states movement makes it worst. has been taking Tylenol without relief. - History of Current Complaint Chief Complaint: EDExtremityUpper Stated Complaint: FALL WRIST INJURY Time Seen by Provider: 08/03/17 16:57 - Allergies/Home Medications Allergies/Adverse Reactions: Allergies Allergy/AdvReac Type Severity Reaction Status Date / Time Phenytoin [From Dilantin] Allergy Severe Swelling Verified 06/22/17 19:59 Of Face,Lips,& Throat Etodolac Allergy Intermediate Swelling Verified 06/22/17 19:59 Of Face,Lips,& Throat Ketorolac Allergy Swelling Verified 06/22/17 19:59 Of Face,Lips,& Throat Ketorolac Tromethamine Allergy Anaphylatic Verified 06/22/17 19:59 [From Toradol] Shock PMH/Surg Hx/FS Hx/Imm Hx Endocrine/Hematology History: Denies: Hx Anticoagulant Therapy, Hx Blood Disorders, Hx Diabetes, Hx Thyroid Disease Cardiovascular History: Reports: Hx Angina, Hx Coronary Artery Disease, Hx Hypercholesterolemia, Hx Hypertension, Hx Myocardial Infarction, Other Cardiovascular Problems/Disorders - cva Denies: Hx Pacemaker/ICD, Hx Valvular Heart Disease Respiratory History: Reports: Hx Chronic Obstructive Pulmonary Disease (COPD) Denies: Hx Asthma GI History: Reports: Hx Ulcer History: Denies: Hx Renal Disease Musculoskeletal History: Reports: Hx Arthritis Sensory History: Denies: Hx Hearing Aid Neurological History: Reports: Hx CVA, Hx Seizures, Other Neuro Impairments/ Disorders - BRAIN TUMOR Denies: Hx Dementia Psychiatric History: Denies: Hx Panic Disorder, Hx Substance Abuse - Cancer History Cancer Type, Location and Year: 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 Hx Chemotherapy: No Hx Radiation Therapy: No - Surgical History Surgery Procedure, Year, and Place: BRAIN-STEALTH & BIOPSIES(SEVERAL) @ [facility]; BOTH ELBOWS; Rt SHOULDER-ROTATOR; BOTH KNEES ACL REPAIR, BILAT KNEE REPLACEMENT - Immunization History Date of Tetanus Vaccine: Unsure Infectious Disease History: No Infectious Disease History: Reports: Hx of Known/Suspected MRSA - Right arm lump , 2002 Denies: Hx Clostridium Difficile, Hx Hepatitis, Hx Human Immunodeficiency Virus (HIV), Hx Shingles, Hx Tuberculosis, Hx Known/Suspected VRE, Hx Known/ Suspected VRSA, History Other Infectious Disease, Traveled Outside the [place] in Last 30 Days - Family History Known Family History: Positive: Unknown, Cardiac Disease, Hypertension, Diabetes , Other - [place] - Social History Alcohol Use: None Hx Substance Use: No Substance Use Type: Reports: None Hx Tobacco Use: Yes Smoking Status (MU): Heavy Every Day Tobacco Smoker Type: Cigarettes Amount Used/How Often: 1 ppd Review of Systems Negative: Fever Negative: Chest Pain Negative: Shortness Of Breath Positive: Myalgia - left wrist pain All Other Systems Reviewed And Are Negative: Yes Physical Exam Triage Information Reviewed: Yes Vital Signs On Initial Exam: Initial Vitals Temp Pulse Resp BP Pulse Ox 97.6 F 98 16 139/86 98 08/03/17 16:52 08/03/17 16:52 08/03/17 16:52 08/03/17 16:52 08/03/17 16:52 Vital Signs Reviewed: Yes Appearance: Positive: Well-Appearing Skin: Positive: Warm, Dry Head/Face: Positive: Normal Head/Face Inspection Eyes: Positive: Normal, Conjunctiva Clear Respiratory/Lung Sounds: Positive: Clear to Auscultation, Breath Sounds Present Cardiovascular: Positive: Normal, RRR Musculoskeletal: Positive: Limited @ - left wrist, Other - good pulses, tenderness over left wrist, capillary refill<2 secs, 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 - Radiology wrist Xray Interpretation: No Acute Changes Radiology Interpretation Completed By: Radiologist Course/Dx - Course Course Of Treatment: 46M presents s/p fall with left wrist injury. He states that he slipped and landed on his left wrist. He denies any previous injury to the area. He has history of left elbow pain. He has brain CA. He denies any numbness or tingling. He denies any chest pain or SOB or dizziness. The fall was mechanical. He states movement makes it worst. has been taking Tylenol without relief. on exam tenderness over left wrist. xray normal. will treat with RICE. patient understand and agrees with plan. - Diagnoses Differential Diagnosis/HQI/PQRI: Positive: Fracture (Closed), Strain, Sprain Provider Diagnoses: Left wrist injury Discharge - Discharge Plan Condition: Good Disposition: HOME Patient Education Materials: Wrist Sprain (ED) Referrals: Benja Lowery MD [Primary Care Provider] - Additional Instructions: Ice, elevate, keep in SAMM Tylenol every 6 hours for pain Follow up with primary if no improvement Return to ED if develop or any new or worsening symptoms
== END 2017-08-03 18:35 | disposition home or self-care (01) ==
LOC: ED 16:50
DX: S69.92XA Unspecified injury of left wrist, hand and finger(s), initial encounter (principal); W01.0XXA Fall on same level from slipping, tripping and stumbling without subsequent striking against object, initial encounter; Y93.9 Activity, unspecified; Y92.9 Unspecified place or not applicable
CPT/HCPCS: 99281

== ENCOUNTER 2017-09-01 14:55 | Emergency (ER) | payer MEDICARE, MEDICAID ==
--- NOTE | 2017-09-01 15:12 | ED ---
Laceration/Wound HPI - HPI Summary HPI Summary: 46M presents with laceration to 3rd and 4th right finger. He has laceration to nail of 3rd finger and flap like laceration to 4th finger. He denies any numbness or tingling. He denies any active bleeding. He is right handed. His last tetanus was last year. He denies any other injury. He has not taken anything for his pain. his pain is 3/10. - History of Current Complaint Stated Complaint: RT FINGERS LAC Time Seen by Provider: 09/01/17 15:04 Pain Intensity: 2 - Allergy/Home Medications Allergies/Adverse Reactions: Allergies Allergy/AdvReac Type Severity Reaction Status Date / Time Phenytoin [From Dilantin] Allergy Severe Swelling Verified 06/22/17 19:59 Of Face,Lips,& Throat Etodolac Allergy Intermediate Swelling Verified 06/22/17 19:59 Of Face,Lips,& Throat Ketorolac Allergy Swelling Verified 06/22/17 19:59 Of Face,Lips,& Throat Ketorolac Tromethamine Allergy Anaphylatic Verified 06/22/17 19:59 [From Toradol] Shock PMH/Surg Hx/FS Hx/Imm Hx Endocrine/Hematology History: Denies: Hx Anticoagulant Therapy, Hx Blood Disorders, Hx Diabetes, Hx Thyroid Disease Cardiovascular History: Reports: Hx Angina, Hx Coronary Artery Disease, Hx Hypercholesterolemia, Hx Hypertension, Hx Myocardial Infarction, Other Cardiovascular Problems/Disorders - cva Denies: Hx Pacemaker/ICD, Hx Valvular Heart Disease Respiratory History: Reports: Hx Chronic Obstructive Pulmonary Disease (COPD) Denies: Hx Asthma GI History: Reports: Hx Ulcer History: Denies: Hx Renal Disease Musculoskeletal History: Reports: Hx Arthritis Sensory History: Denies: Hx Hearing Aid Neurological History: Reports: Hx CVA, Hx Seizures, Other Neuro Impairments/ Disorders - BRAIN TUMOR Denies: Hx Dementia Psychiatric History: Denies: Hx Panic Disorder, Hx Substance Abuse - Cancer History Cancer Type, Location and Year: 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 Hx Chemotherapy: No Hx Radiation Therapy: No - Surgical History Surgery Procedure, Year, and Place: BRAIN-STEALTH & BIOPSIES(SEVERAL) @ [facility]; BOTH ELBOWS; Rt SHOULDER-ROTATOR; BOTH KNEES ACL REPAIR, BILAT KNEE REPLACEMENT - Immunization History Date of Tetanus Vaccine: Unsure Infectious Disease History: No Infectious Disease History: Reports: Hx of Known/Suspected MRSA - Right arm lump , 2002 Denies: Hx Clostridium Difficile, Hx Hepatitis, Hx Human Immunodeficiency Virus (HIV), Hx Shingles, Hx Tuberculosis, Hx Known/Suspected VRE, Hx Known/ Suspected VRSA, History Other Infectious Disease, Traveled Outside the [place] in Last 30 Days - Family History Known Family History: Positive: Unknown, Cardiac Disease, Hypertension, Diabetes , Other - [place] - Social History Alcohol Use: None Hx Substance Use: No Substance Use Type: Reports: None Hx Tobacco Use: Yes Smoking Status (MU): Heavy Every Day Tobacco Smoker Type: Cigarettes Amount Used/How Often: 1 ppd Review of Systems Negative: Fever Negative: Chest Pain Negative: Shortness Of Breath Positive: Other - laceration 3-4th finger right All Other Systems Reviewed And Are Negative: Yes Physical Exam Triage Information Reviewed: Yes Vital Signs On Initial Exam: Initial Vitals Temp Pulse Resp BP Pulse Ox 97.2 F 82 16 123/78 100 09/01/17 14:56 09/01/17 14:56 09/01/17 14:56 09/01/17 14:56 09/01/17 14:56 Vital Signs Reviewed: Yes Appearance: Positive: Well-Appearing Skin: Positive: Warm, Dry, Other - 2cm flap like laceration to right 4th finger , 1/2cm laceration of right 3rd finger of the nail Head/Face: Positive: Normal Head/Face Inspection Eyes: Positive: Normal, Conjunctiva Clear Respiratory/Lung Sounds: Positive: Clear to Auscultation, Breath Sounds Present Cardiovascular: Positive: Normal, RRR Musculoskeletal: Positive: Strength/ROM Intact - right hand, Other - good pulses , sensation grossly intact Neurological: Positive: Sensory/Motor Intact - Maddy Coma Scale Best Eye Response: 4 - Spontaneous Procedures - Laceration/Wound Repair 1 Location: Other - right ring finger Description: Irregular Anesthesia: Digital, 1.0% Length, Depth and Shape: 2cm flap like Betadine Prep?: Yes Irrigated w/ Saline (ccs): 100 Laceration/Wound Explored: no foreign body removed Closure: Single Layer Suture Type: Prolene - 4-0 Number of Sutures: 2 Layer Closure?: No Sterile Dressing Applied?: Yes - neosporin, telfa Diagnostics - Vital Signs Vital Signs Temp Pulse Resp BP Pulse Ox 09/01/17 14:56 97.2 F 82 16 123/78 100 - Laboratory Lab Statement: Any lab studies that have been ordered have been reviewed, and results considered in the medical decision making process. Laceration Repair Course/Dx - Course Course Of Treatment: 46M presents with laceration to 3rd and 4th right finger. He has laceration to nail of 3rd finger and flap like laceration to 4th finger. He denies any numbness or tingling. He denies any active bleeding. He is right handed. His last tetanus was last year. He denies any other injury. He has not taken anything for his pain. his pain is 3/10. on exam has 2cm flap like laceration of right index finger. laceration of nail does not need closure. placed 2 sutures in area. patient understand and agrees with plan. - Differential Dx Differental Diagnoses: Abrasion, Avulsion, Laceration - Clinical Impression Provider Diagnoses: Laceration of right hand Discharge - Discharge Plan Condition: Good Disposition: HOME Patient Education Materials: Care For Your Stitches (ED) Referrals: Benja Lowery MD [Primary Care Provider] - Additional Instructions: Take Tylenol or ibuprofen for pain Keep area clean and dry for 24 hours Return to ED or primary in 10-14 days to have sutures removed Return to ED if develop signs of infection such as fever, spreading redness, or pus.
[2017-09-01] MEDS ORDERED: Lidocaine 1%* 5 ML VIAL INJ ONE (15:15)
[2017-09-01 16:04] VITALS: BP 124/62
== END 2017-09-01 16:02 | disposition home or self-care (01) ==
LOC: ED 14:55
DX: S61.212A Laceration without foreign body of right middle finger without damage to nail, initial encounter (principal); S61.214A Laceration without foreign body of right ring finger without damage to nail, initial encounter; W26.8XXA Contact with other sharp object(s), not elsewhere classified, initial encounter; Y93.9 Activity, unspecified; Y92.9 Unspecified place or not applicable; F17.210 Nicotine dependence, cigarettes, uncomplicated
CPT/HCPCS: 12001; 96374; 99281

== ENCOUNTER 2017-09-22 13:21 | Emergency (ER) | payer MEDICARE, MEDICAID ==
[2017-09-22] MEDS ORDERED: Acetaminophen TAB* 325 MG PO ONE (14:45)
--- NOTE | 2017-09-22 14:47 | ED ---
Laceration/Wound HPI - HPI Summary HPI Summary: Patient presents to the ED with a laceration which is irregular and superficial in between the webbing of the thumb and first finger sustained this morning around 6 AM while picking up glass from a broken TV. Last tetanus 3 years ago. He denies any other injuries. The laceration is 2 cm in length, irregular, superficial, star-shaped and located between the webspace of the thumb and first finger. Full range of motion and denies any numbness or tingling, color or temperature changes to the area.. Bleeding is controlled. He is in no acute distress and is requesting pain control on arrival. - History of Current Complaint Stated Complaint: LEFT HAND LAC Time Seen by Provider: 09/22/17 13:56 Hx Obtained From: Patient Mechanism of Injury: Sharp/Blunt Trauma Onset/Duration: Sudden Onset Aggravating: Movement Alleviating: Compression Timing: Constant Onset Severity: Mild Current Severity: Mild Pain Intensity: 0 Pain Scale Used: 0-10 Numeric Associated Signs & Symptoms: Negative Related Hx: Dominant Hand (Right) - Additional Pertinent History Oxygen Devices Used Prior to Hospitalization: None Recent Stress Test: No - Allergy/Home Medications Allergies/Adverse Reactions: Allergies Allergy/AdvReac Type Severity Reaction Status Date / Time MS Phenytoin [From Dilantin] Allergy Severe Swelling Verified 06/22/17 19:59 Of Face,Lips,& Throat MS Etodolac [Etodolac] Allergy Intermediate Swelling Verified 06/22/17 19:59 Of Face,Lips,& Throat MS Ketorolac [Ketorolac] Allergy Swelling Verified 06/22/17 19:59 Of Face,Lips,& Throat MS Ketorolac Tromethamine Allergy Anaphylatic Verified 06/22/17 19:59 [From Toradol] Shock PMH/Surg Hx/FS Hx/Imm Hx Previously Healthy: Yes Endocrine/Hematology History: Denies: Hx Anticoagulant Therapy, Hx Blood Disorders, Hx Diabetes, Hx Thyroid Disease Cardiovascular History: Reports: Hx Angina, Hx Coronary Artery Disease, Hx Hypercholesterolemia, Hx Hypertension, Hx Myocardial Infarction, Other Cardiovascular Problems/Disorders - cva Denies: Hx Pacemaker/ICD, Hx Valvular Heart Disease Respiratory History: Reports: Hx Chronic Obstructive Pulmonary Disease (COPD) Denies: Hx Asthma GI History: Reports: Hx Ulcer History: Denies: Hx Renal Disease Musculoskeletal History: Reports: Hx Arthritis Sensory History: Denies: Hx Hearing Aid Neurological History: Reports: Hx CVA, Hx Seizures, Other Neuro Impairments/ Disorders - BRAIN TUMOR Denies: Hx Dementia Psychiatric History: Denies: Hx Panic Disorder, Hx Substance Abuse - Cancer History Cancer Type, Location and Year: 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 Hx Chemotherapy: No Hx Radiation Therapy: No - Surgical History Surgery Procedure, Year, and Place: BRAIN-STEALTH & BIOPSIES(SEVERAL) @ [facility]; BOTH ELBOWS; Rt SHOULDER-ROTATOR; BOTH KNEES ACL REPAIR, BILAT KNEE REPLACEMENT - Immunization History Date of Tetanus Vaccine: Unsure Date of Influenza Vaccine: no Hx Pertussis Vaccination: No Immunizations Up to Date: Unable to Obtain/Confirm Infectious Disease History: No Infectious Disease History: Reports: Hx of Known/Suspected MRSA - Right arm lump , 2002 Denies: Hx Clostridium Difficile, Hx Hepatitis, Hx Human Immunodeficiency Virus (HIV), Hx Shingles, Hx Tuberculosis, Hx Known/Suspected VRE, Hx Known/ Suspected VRSA, History Other Infectious Disease, Traveled Outside the [place] in Last 30 Days - Family History Known Family History: Positive: Unknown, Cardiac Disease, Hypertension, Diabetes , Other - [place] - Social History Occupation: Employed Full-time Lives: With Family Alcohol Use: None Hx Substance Use: No Substance Use Type: Reports: None Hx Tobacco Use: Yes Smoking Status (MU): Heavy Every Day Tobacco Smoker Type: Cigarettes Amount Used/How Often: 1 ppd Review of Systems Constitutional: Negative Negative: Fever, Chills, Fatigue, Skin Diaphoresis Cardiovascular: Negative Respiratory: Negative Genitourinary: Negative Positive: no symptoms reported, see HPI Musculoskeletal: Negative Positive: Other - 2 cm laceration to the webspace of the left hand Neurological: Negative All Other Systems Reviewed And Are Negative: Yes Physical Exam Triage Information Reviewed: Yes Vital Signs On Initial Exam: Initial Vitals Temp Pulse Resp BP Pulse Ox 99 F 90 18 131/79 96 09/22/17 13:42 09/22/17 13:42 09/22/17 13:42 09/22/17 13:42 09/22/17 13:42 Vital Signs Reviewed: Yes Appearance: Positive: Well-Appearing, Well-Nourished Skin: Positive: Warm, Skin Color Reflects Adequate Perfusion, Other - Laceration Head/Face: Positive: Normal Head/Face Inspection Eyes: Positive: EOMI, MICKI, Conjunctiva Clear Neck: Positive: Supple, No Lymphadenopathy Respiratory/Lung Sounds: Positive: Clear to Auscultation, Breath Sounds Present Cardiovascular: Positive: RRR, Pulses are Symmetrical in both Upper and Lower Extremities Musculoskeletal: Positive: Strength/ROM Intact Neurological: Positive: Speech Normal Psychiatric: Positive: Normal, Affect/Mood Appropriate AVPU Assessment: Alert Procedures - Laceration/Wound Repair 1 Location: upper extremity Description: Irregular Anesthesia: Local Length, Depth and Shape: 2 cm, star shaped, superficial Betadine Prep?: No Laceration/Wound Explored: no foreign body removed Debridement: minimal Suture Type: Prolene Number of Sutures: 4 Layer Closure?: No Sterile Dressing Applied?: No Diagnostics - Vital Signs Vital Signs Temp Pulse Resp BP Pulse Ox 09/22/17 13:42 99 F 90 18 131/79 96 - Laboratory Lab Statement: Any lab studies that have been ordered have been reviewed, and results considered in the medical decision making process. Laceration Repair Course/Dx - Course Course Of Treatment: During the course of treatment, the patient is evaluated for laceration of the webbing between the thumb and first finger. Chlorhexidine and normal saline to irrigate the wound well. Tetanus is up-to- date. Bleeding is controlled. Explored the wound with no foreign bodies present. Timeout obtained. One male lidocaine without epi used for anesthetic. 3 sutures placed using 3-0 Prolene. Patient tolerated well. Suture removal in 7 days. Patient voices no concerns. - Clinical Impression Provider Diagnoses: Laceration Discharge - Discharge Plan Condition: Stable Disposition: HOME Patient Education Materials: Care For Your Stitches (ED), Stitches Removal (ED) Referrals: Benja Lowery MD [Primary Care Provider] - Additional Instructions: Stitches removal in 7 days Keep the area covered when working in a dirty environment Keep the area covered 24 hours with current gauze wrap
[2017-09-22 15:36] VITALS: BP 133/79
--- NOTE | 2017-09-26 10:08 | PN ---
Progress Note - Progress Note Date of Service: 09/23/17 Note: Laceration is 2 cm in length, irregular, superficial, star-shaped and located between the webspace of the thumb and first finger.
== END 2017-09-22 15:36 | disposition home or self-care (01) ==
LOC: ED 13:21
DX: S61.412A Laceration without foreign body of left hand, initial encounter (principal); W25.XXXA Contact with sharp glass, initial encounter; Y92.9 Unspecified place or not applicable; F17.210 Nicotine dependence, cigarettes, uncomplicated; Z88.8 Allergy status to other drugs, medicaments and biological substances; Z88.5 Allergy status to narcotic agent
CPT/HCPCS: 12001; 99282; A9270-GY

== ENCOUNTER 2017-11-04 11:44 | Emergency (ER) | payer MEDICARE, MEDICAID ==
[2017-11-04] MEDS ORDERED: NS 0.9% 1000 ML* 1,000 ML IV ONE (12:20)
[2017-11-04 12:58] LABS: ABS Basophils 0.1 10^3/ul (0-0.2); ABS Eosinophils 0.1 10^3/ul (0-0.6); ABS Lymphocytes 1.4 10^3/ul (1.0-4.8); ABS Monocytes 0.4 10^3/ul (0-0.8); ABS Nucleated RBC 0 10^3/ul; Hematocrit 37 % (42-52); Hemoglobin 13.2 g/dl (14.0-18.0); Lymphocyte % 20.5 % (25-47); Mean Corpuscular HGB Conc 36 g/dl (31-36); Mean Corpuscular Hemoglobin 32 pg (27-31); Mean Corpuscular Volume 87 fL (80-94); Mean Platelet Volume 6.8 um3 (7.4-10.4); Nucleated Red Blood Cells % 0; Platelet Count 183 10^3/ul (150-450); Red Cell Distribution Width 14 % (10.5-15); White Blood Count 7.1 10^3/ul (3.5-10.8)
--- NOTE | 2017-11-04 13:07 | RAD ---
INDICATION: Shortness of breath, cough, chronic obstructive respiratory disease. History of brain cancer. COMPARISON: March 23, 2017 CT abdomen. TECHNIQUE: Dual energy PA and routine lateral views of the chest were obtained. REPORT: Mild linear subsegmental atelectasis at the LEFT lung base. The lungs and pleural spaces are otherwise clear. Negative for pneumothorax. The heart, pulmonary vasculature, and mediastinal contours are unremarkable. Unremarkable soft tissue contours. Mild thoracic degenerative spondylosis. IMPRESSION: Mild LEFT basilar subsegmental atelectasis. No compelling evidence for pneumonia.
[2017-11-04 13:09] LABS: EGFR Non-African American 75.7 (>60)
--- NOTE | 2017-11-04 13:28 | ED ---
Influenza-Like Illness - HPI Summary HPI Summary: 47-year-old male presents with cough, chills, sore throat, headache and nasal congestion and feeling ill for the past week. Patient states he is congested from his chest to his nose and sinuses. Patient states he gets sinus infections frequently. States a significant amount of pressure in his head. Denies any chest pain. Admits to feeling sometimes short of breath with wheezing. No medical history other than brain tumor and stomach ulcers. Has been taking [id number] medication such as ibuprofen and Mucinex without significant relief. Took 1600 mg of ibuprofen prior to arrival. Cough is sometimes productive. States nasal congestion is yellow green in color. Denies vomiting, diarrhea, high fever, and abdominal pain. No chest pain or trouble breathing. - History of Current Complaint Chief Complaint: EDFluSymptoms Time Seen by Provider: 11/04/17 12:06 Hx Obtained From: Patient Onset/Duration: Sudden Onset, Lasting Weeks - 1, Still Present, Worse Since Severity: Moderate Associated Signs & Symptoms: F/C - Chills, Myalgia, Cough, Nasal Congestion, Headache - Allergy/Home Medications Allergies/Adverse Reactions: Allergies Allergy/AdvReac Type Severity Reaction Status Date / Time etodolac Allergy Anaphylatic Verified 11/04/17 11:57 Shock ketorolac [From Toradol] Allergy Anaphylatic Verified 11/04/17 11:57 Shock phenytoin [From Dilantin] Allergy Anaphylatic Verified 11/04/17 11:57 Shock tequilla Allergy Anaphylatic Uncoded 11/04/17 11:57 Shock PMH/Surg Hx/FS Hx/Imm Hx Endocrine/Hematology History: Denies: Hx Anticoagulant Therapy, Hx Blood Disorders, Hx Diabetes, Hx Thyroid Disease Cardiovascular History: Reports: Hx Angina, Hx Coronary Artery Disease, Hx Hypercholesterolemia, Hx Hypertension, Hx Myocardial Infarction, Other Cardiovascular Problems/Disorders - cva Denies: Hx Pacemaker/ICD, Hx Valvular Heart Disease Respiratory History: Reports: Hx Chronic Obstructive Pulmonary Disease (COPD) Denies: Hx Asthma GI History: Reports: Hx Ulcer History: Denies: Hx Renal Disease Musculoskeletal History: Reports: Hx Arthritis Sensory History: Denies: Hx Hearing Aid Neurological History: Reports: Hx CVA, Hx Seizures, Other Neuro Impairments/ Disorders - BRAIN TUMOR Denies: Hx Dementia Psychiatric History: Denies: Hx Panic Disorder, Hx Substance Abuse - Cancer History Cancer Type, Location and Year: 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 Hx Chemotherapy: No Hx Radiation Therapy: No - Surgical History Surgery Procedure, Year, and Place: BRAIN-STEALTH & BIOPSIES(SEVERAL) @ [facility]; BOTH ELBOWS; Rt SHOULDER-ROTATOR; BOTH KNEES ACL REPAIR, BILAT KNEE REPLACEMENT - Immunization History Date of Tetanus Vaccine: Unsure Date of Influenza Vaccine: no Immunizations Up to Date: Yes Infectious Disease History: No Infectious Disease History: Reports: Hx of Known/Suspected MRSA - Right arm lump , 2002 Denies: Hx Clostridium Difficile, Hx Hepatitis, Hx Human Immunodeficiency Virus (HIV), Hx Shingles, Hx Tuberculosis, Hx Known/Suspected VRE, Hx Known/ Suspected VRSA, History Other Infectious Disease, Traveled Outside the [place] in Last 30 Days - Family History Known Family History: Positive: Unknown, Cardiac Disease, Hypertension, Diabetes , Other - [place] - Social History Alcohol Use: None Hx Substance Use: No Substance Use Type: Reports: None Hx Tobacco Use: Yes Smoking Status (MU): Light Every Day Tobacco Smoker - 3 cigarettes a day, used to smoke 3 packs a day Type: Cigarettes Amount Used/How Often: 1 ppd Review of Systems Positive: Chills, Fatigue Positive: Sore Throat, Nasal Discharge Cardiovascular: Negative Positive: Shortness Of Breath - wheezing, Cough Gastrointestinal: Negative Musculoskeletal: Negative Positive: Headache All Other Systems Reviewed And Are Negative: Yes Physical Exam Triage Information Reviewed: Yes Vital Signs On Initial Exam: Initial Vitals Temp Pulse Resp BP Pulse Ox 99.4 F 79 16 107/64 96 11/04/17 11:57 11/04/17 11:57 11/04/17 11:57 11/04/17 11:57 11/04/17 11:57 Vital Signs Reviewed: Yes Appearance: Positive: Well-Appearing, No Pain Distress, Well-Nourished Skin: Positive: Warm, Skin Color Reflects Adequate Perfusion, Dry. Negative: Cold, Cyanosis @, Pale, Erythema @ Head/Face: Positive: Normal Head/Face Inspection Eyes: Positive: Conjunctiva Clear ENT: Positive: Hearing grossly normal - , mild, Pharyngeal erythema - Postnasal drip noted, Nasal congestion, TMs normal - Serous effusion bilaterally, Sinus tenderness - Maxillary and frontal bilaterally, Uvula midline. Negative: Nasal drainage, TM bulging, TM dull, Tonsillar swelling, Tonsillar exudate Dental: Positive: Percussion Tenderness @ - Maxillary and frontal sinuses, Cervical Lymphadenopathy - Tonsillar Neck: Positive: Supple, Nontender. Negative: No Lymphadenopathy Respiratory/Lung Sounds: Positive: Clear to Auscultation, Breath Sounds Present , Decreased Breath Sounds - Diffuse, however patient is shallow breathing due to exacerbating cough with deep breaths, Wheezes - Diffuse. Negative: Rales, Rhonchi Cardiovascular: Positive: Normal, RRR, Pulses are Symmetrical in both Upper and Lower Extremities. Negative: Murmur, Rub Bowel Sounds: Positive: Present Musculoskeletal: Positive: Normal, Strength/ROM Intact Neurological: Positive: Normal, Sensory/Motor Intact, Alert, Oriented to Person Place, Time Diagnostics - Vital Signs Vital Signs Temp Pulse Resp BP Pulse Ox 11/04/17 12:12 68 97 11/04/17 12:10 96/61 11/04/17 11:57 99.4 F 79 16 107/64 96 - Laboratory Lab Results: Lab Results 11/04/17 11/04/17 11/04/17 Range/Units 12:30 12:30 12:30 WBC 7.1 (3.5-10.8) 10^3/ul RBC 4.20 (4.0-5.4) 10^6/ul Hgb 13.2 L (14.0-18.0) g/dl Hct 37 L (42-52) % MCV 87 (80-94) fL MCH 32 H (27-31) pg MCHC 36 (31-36) g/dl RDW 14 (10.5-15) % Plt Count 183 (150-450) 10^3/ul MPV 6.8 L (7.4-10.4) um3 Neut % (Auto) 70.5 (38-83) % Lymph % (Auto) 20.5 L (25-47) % Ross % (Auto) 6.2 (0-7) % Eos % (Auto) 2.0 (0-6) % Baso % (Auto) 0.8 (0-2) % Absolute Neuts (auto) 5.0 (1.5-7.7) 10^3/ul Absolute Lymphs (auto) 1.4 (1.0-4.8) 10^3/ul Absolute Monos (auto) 0.4 (0-0.8) 10^3/ul Absolute Eos (auto) 0.1 (0-0.6) 10^3/ul Absolute Basos (auto) 0.1 (0-0.2) 10^3/ul Absolute Nucleated RBC 0 10^3/ul Nucleated RBC % 0 Sodium 133 (133-145) mmol/L Potassium 3.4 L (3.5-5.0) mmol/L Chloride 102 (101-111) mmol/L Carbon Dioxide 24 (22-32) mmol/L Anion Gap 7 (2-11) mmol/L BUN 17 (6-24) mg/dL Creatinine 1.05 (0.67-1.17) mg/dL Est GFR ( Amer) 97.4 (>60) Est GFR (Non-Af Amer) 75.7 (>60) BUN/Creatinine Ratio 16.2 (8-20) Glucose 99 (70-100) mg/dL Lactic Acid 0.6 (0.5-2.0) mmol/L Calcium 9.4 (8.6-10.3) mg/dL Total Bilirubin 0.50 (0.2-1.0) mg/dL AST 24 (13-39) U/L ALT 33 (7-52) U/L Alkaline Phosphatase 60 (34-104) U/L Troponin I 0.01 (<0.04) ng/mL Total Protein 6.8 (6.4-8.9) g/dL Albumin 3.9 (3.2-5.2) g/dL Globulin 2.9 (2-4) g/dL Albumin/Globulin Ratio 1.3 (1-3) Influenza A (Rapid) (Negative) Influenza B (Rapid) (Negative) 11/04/17 Range/Units 12:35 WBC (3.5-10.8) 10^3/ul RBC (4.0-5.4) 10^6/ul Hgb (14.0-18.0) g/dl Hct (42-52) % MCV (80-94) fL MCH (27-31) pg MCHC (31-36) g/dl RDW (10.5-15) % Plt Count (150-450) 10^3/ul MPV (7.4-10.4) um3 Neut % (Auto) (38-83) % Lymph % (Auto) (25-47) % Ross % (Auto) (0-7) % Eos % (Auto) (0-6) % Baso % (Auto) (0-2) % Absolute Neuts (auto) (1.5-7.7) 10^3/ul Absolute Lymphs (auto) (1.0-4.8) 10^3/ul Absolute Monos (auto) (0-0.8) 10^3/ul Absolute Eos (auto) (0-0.6) 10^3/ul Absolute Basos (auto) (0-0.2) 10^3/ul Absolute Nucleated RBC 10^3/ul Nucleated RBC % Sodium (133-145) mmol/L Potassium (3.5-5.0) mmol/L Chloride (101-111) mmol/L Carbon Dioxide (22-32) mmol/L Anion Gap (2-11) mmol/L BUN (6-24) mg/dL Creatinine (0.67-1.17) mg/dL Est GFR ( Amer) (>60) Est GFR (Non-Af Amer) (>60) BUN/Creatinine Ratio (8-20) Glucose (70-100) mg/dL Lactic Acid (0.5-2.0) mmol/L Calcium (8.6-10.3) mg/dL Total Bilirubin (0.2-1.0) mg/dL AST (13-39) U/L ALT (7-52) U/L Alkaline Phosphatase (34-104) U/L Troponin I (<0.04) ng/mL Total Protein (6.4-8.9) g/dL Albumin (3.2-5.2) g/dL Globulin (2-4) g/dL Albumin/Globulin Ratio (1-3) Influenza A (Rapid) Negative (Negative) Influenza B (Rapid) Negative (Negative) Result Diagrams: 11/04/17 12:30 11/04/17 12:30 Lab Statement: Any lab studies that have been ordered have been reviewed, and results considered in the medical decision making process. - Radiology chest Xray Interpretation: Positive (See Comments) - Mild LEFT basilar subsegmental atelectasis. No compelling evidence for pneumonia. Radiology Interpretation Completed By: Radiologist - EKG ekg Cardiac Rate: NL EKG Rhythm: Sinus Rhythm ST Segment: Normal Ectopy: None EKG Interpretation: NSR at 61bpm, no STEMI EKG Comparison: No Significant Change Re-Evaluation - Re-Evaluation First Eval Re-Evaluation Time: 14:05 Change: Improved - Had relief after DuoNeb, fluids and pain medication. Updated on all labs, imaging, culture results. Agrees with plan. Questions were answered. Ready to be DC Flu Symptom Course/Dx - Course Course Of Treatment: Influenza obtained and negative. Labs obtained are negative besides minor anemia, which is typical compared to previous results. EKG obtained without abnormalities. X-ray obtained and negative for pneumonia some mild atelectasis noted. Patient given DuoNeb and had relief, wheezes improved on re-eval. Given 1 L normal saline. Given [place] for headache. Normal physical exam other than sinus pressure and congestion and diffuse wheezing. Patient updated on all results during ED stay. Appears to be suffering from sinusitis/upper respiratory infection. Due to duration of symptoms and worsening history and physical exam findings will treat with Augmentin, Flonase, Tessalon Perles, albuterol inhaler, Xanax, and Tylenol. Hot showers, hot compresses, fluids, rest, and saline rinses suggested. Aware of worsening signs and symptoms.normal vitals throughout visit without temperature and normal O2. No other concerns of other etiology at this time. Follow up with PCP in 3 days. Patient agrees and understands plan. - Diagnoses Differential Diagnosis/HQI/PQRI: Positive: Bronchitis, Pneumonia, Upper Respiratory Infection, Other - Sinusitis, atelectasis Provider Diagnoses: Sinusitis, URI (upper respiratory infection) Discharge - Sign-Out/Discharge Documenting (check all that apply): Discharge - Discharge Plan Condition: Improved Disposition: HOME Prescriptions: Albuterol HFA INHALER* [Ventolin HFA Inhaler*] 1 puff INH Q6H PRN #1 mdi PRN Reason: Sob/Wheezing Amoxicillin/Clavulanate TAB* [Augmentin TAB 875*] 875 mg PO BID #20 tab Benzonatate CAP* [Tessalon 100 MG CAP*] 100 mg PO TID #15 cap Fluticasone NASAL SPRAY 50MCG* [Flonase NASAL SPRAY 50MCG*] 2 spray BOTH NARES DAILY #1 btl Patient Education Materials: Sinusitis (ED), Upper Respiratory Infection (ED) Referrals: [place],Benja, MD [Primary Care Provider] - Additional Instructions: Used prescribed inhaler as needed for shortness of breath/wheezing. Cough medication as needed for coughing fits. Increase fluid intake and get plenty or rest. Take prescribed antibiotic until entire dose is finished, even if symptoms improve. Take Tylenol as needed for headache. Recommend taking Mucinex to help with congestion. Recommend saline rinses sold [id number] along with prescribed Flonase for nasal congestion. Hot compresses and hot showers. Any new or worsening symptoms please seek medical attention promptly, as discussed. Follow up with PCP in 3 days to ensure improvement. - Billing Disposition and Condition Condition: IMPROVED Disposition: HOME
[2017-11-04] MEDS ORDERED: Albuterol/Ipratropium NEB.SOL* Albuterol 2.5 MG/Ipratropium 0.5 MG 3 ML INH ONE (13:35)
[2017-11-04] MEDS ORDERED: HYDROcodone/ACETAMIN 5-325 MG* 1 TAB PO ONE (13:36)
[2017-11-04 14:14] VITALS: BP 112/68
== END 2017-11-04 14:13 | disposition home or self-care (01) ==
LOC: ED 11:44
DX: J01.90 Acute sinusitis, unspecified (principal); J06.9 Acute upper respiratory infection, unspecified; R05 Cough; J02.9 Acute pharyngitis, unspecified; F17.210 Nicotine dependence, cigarettes, uncomplicated
CPT/HCPCS: 36415; 71046; 80053; 83605; 84484; 85025; 87502; 93005; 94640; 99282; A9270-GY

== ENCOUNTER 2017-12-06 17:30 | Emergency (ER) | payer MEDICARE, MEDICAID ==
[2017-12-06] MEDS ORDERED: NS 0.9% 1000 ML* 1,000 ML IV ONE (17:46)
[2017-12-06 18:52] LABS: INR 0.9 (0.77-1.02)
[2017-12-06 18:54] LABS: ABS Basophils 0.1 10^3/ul (0-0.2); ABS Eosinophils 0.2 10^3/ul (0-0.6); ABS Lymphocytes 2.1 10^3/ul (1.0-4.8); ABS Monocytes 0.7 10^3/ul (0-0.8); ABS Neutrophils 4.9 10^3/ul (1.5-7.7); ABS Nucleated RBC 0 10^3/ul; Eosinophil % 2.1 % (0-6); Hematocrit 40 % (42-52); Hemoglobin 14.7 g/dl (14.0-18.0); Lymphocyte % 26.4 % (25-47); Mean Corpuscular HGB Conc 37 g/dl (31-36); Mean Corpuscular Hemoglobin 33 pg (27-31); Mean Corpuscular Volume 88 fL (80-94); Mean Platelet Volume 7.1 um3 (7.4-10.4); Nucleated Red Blood Cells % 0.1; Platelet Count 190 10^3/ul (150-450); Red Blood Count 4.51 10^6/ul (4.0-5.4); Red Cell Distribution Width 15 % (10.5-15); White Blood Count 7.9 10^3/ul (3.5-10.8)
[2017-12-06 19:12] LABS: EGFR Non-African American 57.1 (>60)
--- NOTE | 2017-12-06 19:22 | RAD ---
Indication: Seizures. CT of the brain was performed without IV contrast. Again noted is a right temporal lobe mass similar in extent to that seen on July 10, 2017. No midline shift is noted. There is no evidence of hemorrhage noted. Postoperative changes are noted in the right temporal lobe. No ventricular shift is noted. No ventriculomegaly is noted. Extra-axial spaces are unremarkable. Mastoid air cells and paranasal sinuses are otherwise unremarkable. 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 Postoperative changes are noted.
[2017-12-06 21:03] VITALS: BP 103/64
--- NOTE | 2017-12-06 21:30 | ED ---
Mao Maier Thomas, scribed for Levi Segundo MD on 12/06/17 at 1937 . Complex/Multi-Sys Presentation - HPI Summary HPI Summary: The patient is a 47 year old male who last night had an episode when out on the porch in which he lost consciousness. His family witnessed this episode, and they said that he had a seizure. He has been suffering from right-sided headaches for months. He also complains of dizzy spells when he moves, and he feels like the room shifts. He has seen a neurosurgeon who has told him that this is not vertigo. - History Of Current Complaint Chief Complaint: EDDizziness Time Seen by Provider: 12/06/17 19:10 Hx Obtained From: Patient Onset/Duration: Still Present Timing: Intermittent, Lasting: Severity Currently: Moderate Location: Pain At: - head Aggravating Factor(s): None Alleviating Factor(s): None Associated Signs And Symptoms: Positive: Other - Syncope, LOC, headaches, dizziness - Allergies/Home Medications Allergies/Adverse Reactions: Allergies Allergy/AdvReac Type Severity Reaction Status Date / Time etodolac Allergy Anaphylatic Verified 12/06/17 17:38 Shock ketorolac [From Toradol] Allergy Anaphylatic Verified 12/06/17 17:38 Shock phenytoin [From Dilantin] Allergy Anaphylatic Verified 12/06/17 17:38 Shock tequilla Allergy Anaphylatic Uncoded 12/06/17 17:38 Shock Home Medications: Home Medications Lisinopril TAB* [Prinivil TAB*] 20 mg PO DAILY 12/06/17 [History Confirmed 12/06] PMH/Surg Hx/FS Hx/Imm Hx Endocrine/Hematology History: Denies: Hx Anticoagulant Therapy, Hx Blood Disorders, Hx Diabetes, Hx Thyroid Disease Cardiovascular History: Reports: Hx Angina, Hx Coronary Artery Disease, Hx Hypercholesterolemia, Hx Hypertension, Hx Myocardial Infarction, Other Cardiovascular Problems/Disorders - cva Denies: Hx Pacemaker/ICD, Hx Valvular Heart Disease Respiratory History: Reports: Hx Chronic Obstructive Pulmonary Disease (COPD) Denies: Hx Asthma GI History: Reports: Hx Ulcer History: Denies: Hx Renal Disease Musculoskeletal History: Reports: Hx Arthritis Sensory History: Denies: Hx Hearing Aid Neurological History: Reports: Hx CVA, Hx Seizures, Other Neuro Impairments/ Disorders - BRAIN TUMOR Denies: Hx Dementia Psychiatric History: Denies: Hx Panic Disorder, Hx Substance Abuse - Cancer History Cancer Type, Location and Year: 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 Hx Chemotherapy: No Hx Radiation Therapy: No - Surgical History Surgery Procedure, Year, and Place: BRAIN-STEALTH & BIOPSIES(SEVERAL) @ [facility]; BOTH ELBOWS; Rt SHOULDER-ROTATOR; BOTH KNEES ACL REPAIR, BILAT KNEE REPLACEMENT - Immunization History Date of Tetanus Vaccine: Unsure Date of Influenza Vaccine: no Infectious Disease History: No Infectious Disease History: Reports: Hx of Known/Suspected MRSA - Right arm lump , 2002 Denies: Hx Clostridium Difficile, Hx Hepatitis, Hx Human Immunodeficiency Virus (HIV), Hx Shingles, Hx Tuberculosis, Hx Known/Suspected VRE, Hx Known/ Suspected VRSA, History Other Infectious Disease, Traveled Outside the [place] in Last 30 Days - Family History Known Family History: Positive: Cardiac Disease, Hypertension, Diabetes, Other - [place] - Social History Alcohol Use: None Hx Substance Use: No Substance Use Type: Reports: None Hx Tobacco Use: Yes Smoking Status (MU): Light Every Day Tobacco Smoker - 3 cigarettes a day, used to smoke 3 packs a day Type: Cigarettes Amount Used/How Often: 1 ppd Review of Systems Negative: Fever Neurological: Other - Dizziness, LOC, syncope Positive: Headache All Other Systems Reviewed And Are Negative: Yes Physical Exam - Summary Physical Exam Summary: Appearance: The patient is well-nourished in no acute distress and in no acute pain. Skin: The skin is warm and dry and skin color reflects adequate perfusion. HEENT: The head is normocephalic and atraumatic. The pupils are equal and reactive. The conjunctivae are clear and without drainage. Nares are patent and without drainage. Mouth reveals moist mucous membranes and the throat is without erythema and exudate. The external ears are intact. The ear canals are patent and without drainage. The tympanic membranes are intact. Neck: the neck is supple with full range of motion and non-tender. There are no carotid bruits. There is no neck vein distension. Respiratory: Chest is non-tender. Lungs are clear to auscultation and breath sounds are symmetrical and equal. Cardiovascular: Heart is regular rate and rhythm. There is no murmur or rub auscultated. There is no peripheral edema and pulses are symmetrical and equal. Abdomen: The abdomen is soft and non-tender. There are normal bowel sounds heard in all four quadrants and there is no organomegaly palpated. Musculoskeletal: There is no back tenderness noted. Extremities are non-tender with full range of motion. There is good capillary refill. There is no peripheral edema or calf tenderness elicited. Neurological: Patient is alert and oriented to person, place and time. The patient has symmetrical motor strength in all four extremities. Cranial nerves are grossly intact. Deep tendon reflexes are symmetrical and equal in all four extremities. Psychiatric: The patient has an appropriate affect and does not exhibit any anxiety or depression. Triage Information Reviewed: Yes Vital Signs On Initial Exam: Initial Vitals Temp Pulse Resp BP Pulse Ox 96.8 F 92 20 116/81 98 12/06/17 17:34 12/06/17 17:34 12/06/17 17:34 12/06/17 17:34 12/06/17 17:34 Vital Signs Reviewed: Yes Diagnostics - Vital Signs Vital Signs Temp Pulse Resp BP Pulse Ox 12/06/17 17:34 96.8 F 92 20 116/81 98 - Laboratory Lab Results: Lab Results 12/06/17 12/06/17 12/06/17 Range/Units 18:22 18:22 18:22 WBC 7.9 (3.5-10.8) 10^3/ul RBC 4.51 (4.0-5.4) 10^6/ul Hgb 14.7 (14.0-18.0) g/dl Hct 40 L (42-52) % MCV 88 (80-94) fL MCH 33 H (27-31) pg MCHC 37 H (31-36) g/dl RDW 15 (10.5-15) % Plt Count 190 (150-450) 10^3/ul MPV 7.1 L (7.4-10.4) um3 Neut % (Auto) 61.7 (38-83) % Lymph % (Auto) 26.4 (25-47) % [place] % (Auto) 8.5 H (0-7) % Eos % (Auto) 2.1 (0-6) % Baso % (Auto) 1.3 (0-2) % Absolute Neuts (auto) 4.9 (1.5-7.7) 10^3/ul Absolute Lymphs (auto) 2.1 (1.0-4.8) 10^3/ul Absolute Monos (auto) 0.7 (0-0.8) 10^3/ul Absolute Eos (auto) 0.2 (0-0.6) 10^3/ul Absolute Basos (auto) 0.1 (0-0.2) 10^3/ul Absolute Nucleated RBC 0 10^3/ul Nucleated RBC % 0.1 INR (Anticoag Therapy) 0.90 (0.77-1.02) APTT 27.9 (26.0-36.3) seconds Sodium 136 L (139-145) mmol/L Potassium 3.0 L (3.5-5.0) mmol/L Chloride 106 (101-111) mmol/L Carbon Dioxide 22 (22-32) mmol/L Anion Gap 8 (2-11) mmol/L BUN 25 H (6-24) mg/dL Creatinine 1.34 H (0.67-1.17) mg/dL Est GFR ( Amer) 73.5 (>60) Est GFR (Non-Af Amer) 57.1 (>60) BUN/Creatinine Ratio 18.7 (8-20) Glucose 116 H (70-100) mg/dL Lactic Acid (0.5-2.0) mmol/L Calcium 9.9 (8.6-10.3) mg/dL Total Bilirubin 0.60 (0.2-1.0) mg/dL AST 39 (13-39) U/L ALT 41 (7-52) U/L Alkaline Phosphatase 56 (34-104) U/L Troponin I 0.01 (<0.04) ng/mL Total Protein 7.2 (6.4-8.9) g/dL Albumin 4.9 (3.2-5.2) g/dL Globulin 2.3 (2-4) g/dL Albumin/Globulin Ratio 2.1 (1-3) //18 Range/Units 18:22 WBC (3.5-10.8) 10^3/ul RBC (4.0-5.4) 10^6/ul Hgb (14.0-18.0) g/dl Hct (42-52) % MCV (80-94) fL MCH (27-31) pg MCHC (31-36) g/dl RDW (10.5-15) % Plt Count (150-450) 10^3/ul MPV (7.4-10.4) um3 Neut % (Auto) (38-83) % Lymph % (Auto) (25-47) % [place] % (Auto) (0-7) % Eos % (Auto) (0-6) % Baso % (Auto) (0-2) % Absolute Neuts (auto) (1.5-7.7) 10^3/ul Absolute Lymphs (auto) (1.0-4.8) 10^3/ul Absolute Monos (auto) (0-0.8) 10^3/ul Absolute Eos (auto) (0-0.6) 10^3/ul Absolute Basos (auto) (0-0.2) 10^3/ul Absolute Nucleated RBC 10^3/ul Nucleated RBC % INR (Anticoag Therapy) (0.77-1.02) APTT (26.0-36.3) seconds Sodium (139-145) mmol/L Potassium (3.5-5.0) mmol/L Chloride (101-111) mmol/L Carbon Dioxide (22-32) mmol/L Anion Gap (2-11) mmol/L BUN (6-24) mg/dL Creatinine (0.67-1.17) mg/dL Est GFR ( Amer) (>60) Est GFR (Non-Af Amer) (>60) BUN/Creatinine Ratio (8-20) Glucose (70-100) mg/dL Lactic Acid 0.9 (0.5-2.0) mmol/L Calcium (8.6-10.3) mg/dL Total Bilirubin (0.2-1.0) mg/dL AST (13-39) U/L ALT (7-52) U/L Alkaline Phosphatase (34-104) U/L Troponin I (<0.04) ng/mL Total Protein (6.4-8.9) g/dL Albumin (3.2-5.2) g/dL Globulin (2-4) g/dL Albumin/Globulin Ratio (1-3) Result Diagrams: 12/06/17 18:22 12/06/17 18:22 Lab Statement: Any lab studies that have been ordered have been reviewed, and results considered in the medical decision making process. - Additional Comments Diagnostic Additional Comments: CT BRAIN W/O Interpreted by radiologist IMPRESSION: Right temporal lobe mass unchanged from previous exam with no evidence of acute hemorrhage. Postoperative changes are noted. Dr. Segundo has reviewed this report. Complex Multi-Symp Course/Dx Course Of Treatment: Mr. Arambula's main concern here is that he gets dizzy spells especially when he moves around a lot. This has been going on for about 9 months. He also has a right sided HORTON daily for at least as long. He was either syncopal or had a seizure yesterday but he minimizes that. His W/U here was unremarkable and I spoke with Dr. Lerma who recommended starting Valproic Acid which he has been on in the past. He declined but is willing to F/U with Dr. Lerma to try to get to the bottom of the dizzy spells. He was advised not to drive in case this was a seizure. - Diagnoses Provider Diagnoses: Syncope - Physician Notifications Discussed Care Of Patient With: Melissa Lerma Time Discussed With Above Provider: 20:40 Instructed by Provider To: Other - I consulted with Dr. Lerma, neurology. She recommends starting the patient on Depakote; however, the patient did refuse to do so. The patient is willing to follow up with her. Discharge - Sign-Out/Discharge Documenting (check all that apply): Discharge/Admit/Transfer - Discharge Plan Condition: Stable Disposition: HOME Patient Education Materials: Syncope (ED) Referrals: Melissa Lerma MD [Medical Doctor] - (Follow up with Dr. Lerma at her next available appointment. ) Benja Lowery MD [Primary Care Provider] - If Needed Additional Instructions: Follow up with Dr. Lerma at her next available appointment. Return to the emergency department for any new or worsening symptoms. - Billing Disposition and Condition Condition: STABLE Disposition: HOME The documentation as recorded by the Mao butler Thomas accurately reflects the service I personally performed and the decisions made by me, Levi Segundo MD.
== END 2017-12-06 21:07 | disposition home or self-care (01) ==
LOC: ED 17:30
DX: R55 Syncope and collapse (principal); R51 Headache; R42 Dizziness and giddiness; I25.119 Atherosclerotic heart disease of native coronary artery with unspecified angina pectoris; I11.9 Hypertensive heart disease without heart failure; Z86.73 Personal history of transient ischemic attack (TIA), and cerebral infarction without residual deficits; I25.2 Old myocardial infarction; E78.00 Pure hypercholesterolemia, unspecified; J44.9 Chronic obstructive pulmonary disease, unspecified; Z96.653 Presence of artificial knee joint, bilateral; Z88.5 Allergy status to narcotic agent; Z88.8 Allergy status to other drugs, medicaments and biological substances; F17.210 Nicotine dependence, cigarettes, uncomplicated
CPT/HCPCS: 36415; 70450; 80053; 83605; 84484; 85025; 85610; 85730; 93005; 96360; 99283

== ENCOUNTER 2018-02-19 18:24 | Emergency (ER) | payer MEDICARE, MEDICAID ==
[2018-02-19 19:28] LABS: ABS Basophils 0.1 10^3/ul (0-0.2); ABS Eosinophils 0.1 10^3/ul (0-0.6); ABS Lymphocytes 1.2 10^3/ul (1.0-4.8); ABS Monocytes 0.4 10^3/ul (0-0.8); ABS Neutrophils 3.6 10^3/ul (1.5-7.7); ABS Nucleated RBC 0 10^3/ul; Eosinophil % 2.3 % (0-6); Hematocrit 32 % (42-52); Hemoglobin 11.7 g/dl (14.0-18.0); Lymphocyte % 21.6 % (25-47); Mean Corpuscular HGB Conc 36 g/dl (31-36); Mean Corpuscular Hemoglobin 32 pg (27-31); Mean Corpuscular Volume 88 fL (80-94); Mean Platelet Volume 6.9 um3 (7.4-10.4); Nucleated Red Blood Cells % 0.1; Platelet Count 168 10^3/ul (150-450); Red Blood Count 3.66 10^6/ul (4.00-5.40); Red Cell Distribution Width 14 % (10.5-15); White Blood Count 5.3 10^3/ul (3.5-10.8)
[2018-02-19 19:33] LABS: INR 0.98 (0.77-1.02)
--- NOTE | 2018-02-19 19:40 | ED ---
Shortness of Breath - HPI Summary HPI Summary: Patient's a 47-year-old male with history of brain cancer 15 years ago, COPD, and 2 MIs, is a heavy smoker presenting to the ED with worsening shortness of breath over the past 3 days. He endorses a severe cough with mucus production which is green in color. Denies any back pain. Shortness of breath is worse with cough and lying flat, better with sitting upright. Also endorses some left -sided chest pain with cough which radiates through to the left side body. Denies any weakness. Denies any fevers, sweats, chills. Denies any abdominal pain, nausea, vomiting, constipation. Continues to smoke over 1 pack per day. He denies any chemotherapy, stating his brain cancer is "uncurable and needs to let her take its course." He is otherwise not immunocompromised as far as steroids or other medications. He is not on any blood thinners, however he takes BP medications. He has an albuterol inhaler at home which improves his symptoms somewhat. He also endorses some slight swelling to his bilateral lower extremities as his PCP discontinued his lisinopril/hydrochlorothiazide medication at this time and switch his medication to lisinopril as he has been having low potassium levels. - History of Current Complaint Chief Complaint: EDShortnessOfBreath Time Seen by Provider: 02/19/18 18:34 Hx Obtained From: Patient Onset/Duration: Sudden Onset Timing: Constant Current Severity: Moderate Dyspnea At: Rest Aggrevating Factors: Nothing Alleviating Factors: Nothing Associated Signs & Symptoms: Chest Pain w/Cough Related History: Obesity - Risk Factors Pulmonary Embolism: Negative Cardiac: Prior [place], Smoking, Elevated lipids, Hypertension, Family History Pseudomonas: Chronic Lung Disease Tuberculosis: Negative - Allergy/Home Medications Allergies/Adverse Reactions: Allergies Allergy/AdvReac Type Severity Reaction Status Date / Time etodolac Allergy Anaphylatic Verified 02/19/18 18:28 Shock ketorolac [From Toradol] Allergy Anaphylatic Verified 02/19/18 18:28 Shock phenytoin [From Dilantin] Allergy Anaphylatic Verified 02/19/18 18:28 Shock tequilla Allergy Anaphylatic Uncoded 02/19/18 18:28 Shock PMH/Surg Hx/FS Hx/Imm Hx Previously Healthy: Yes Endocrine/Hematology History: Denies: Hx Anticoagulant Therapy, Hx Blood Disorders, Hx Diabetes, Hx Thyroid Disease Cardiovascular History: Reports: Hx Angina, Hx Coronary Artery Disease, Hx Hypercholesterolemia, Hx Hypertension, Hx Myocardial Infarction, Other Cardiovascular Problems/Disorders - cva Denies: Hx Pacemaker/ICD, Hx Valvular Heart Disease Respiratory History: Reports: Hx Chronic Obstructive Pulmonary Disease (COPD) Denies: Hx Asthma GI History: Reports: Hx Ulcer History: Denies: Hx Renal Disease Musculoskeletal History: Reports: Hx Arthritis Sensory History: Denies: Hx Hearing Aid Neurological History: Reports: Hx CVA, Hx Seizures, Other Neuro Impairments/ Disorders - BRAIN TUMOR Denies: Hx Dementia Psychiatric History: Denies: Hx Panic Disorder, Hx Substance Abuse - Cancer History Cancer Type, Location and Year: 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 Hx Chemotherapy: No Hx Radiation Therapy: No - Surgical History Surgery Procedure, Year, and Place: BRAIN-STEALTH & BIOPSIES(SEVERAL) @ [facility]; BOTH ELBOWS; Rt SHOULDER-ROTATOR; BOTH KNEES ACL REPAIR, BILAT KNEE REPLACEMENT - Immunization History Date of Tetanus Vaccine: Unsure Date of Influenza Vaccine: no Hx Pertussis Vaccination: No Immunizations Up to Date: No Infectious Disease History: No Infectious Disease History: Reports: Hx of Known/Suspected MRSA - Right arm lump , 2002 Denies: Hx Clostridium Difficile, Hx Hepatitis, Hx Human Immunodeficiency Virus (HIV), Hx Shingles, Hx Tuberculosis, Hx Known/Suspected VRE, Hx Known/ Suspected VRSA, History Other Infectious Disease, Traveled Outside the in Last 30 Days - Family History Known Family History: Positive: Unknown, Cardiac Disease, Hypertension, Diabetes , Other - [place] - Social History Occupation: Employed Full-time Lives: With Family Alcohol Use: None Hx Substance Use: No Substance Use Type: Reports: None Hx Tobacco Use: Yes Smoking Status (MU): Heavy Every Day Tobacco Smoker Type: Cigarettes Amount Used/How Often: 1 ppd Review of Systems Constitutional: Negative Negative: Fever, Chills, Fatigue, Skin Diaphoresis Negative: Epistaxis, Dental Pain, Sore Throat, Ear Ache Positive: Chest Pain. Negative: Palpitations Positive: Shortness Of Breath, Cough Negative: Abdominal Pain, Vomiting, Diarrhea, Nausea Genitourinary: Negative Positive: no symptoms reported, see HPI Positive: Edema - bilateral lower extremities Neurological: Negative All Other Systems Reviewed And Are Negative: Yes Physical Exam Triage Information Reviewed: Yes Vital Signs On Initial Exam: Initial Vitals Temp Pulse Resp BP Pulse Ox 97.9 F 65 20 149/88 97 02/19/18 18:27 02/19/18 18:27 02/19/18 18:27 02/19/18 18:27 02/19/18 18:27 Vital Signs Reviewed: Yes Appearance: Positive: Well-Appearing, Well-Nourished Skin: Positive: Warm, Skin Color Reflects Adequate Perfusion Head/Face: Positive: Normal Head/Face Inspection Eyes: Positive: EOMI, MICKI, Conjunctiva Clear ENT: Negative: Dental tenderness, Sinus tenderness, Uvula midline Neck: Positive: Supple, No Lymphadenopathy Cardiovascular: Positive: RRR, Pulses are Symmetrical in both Upper and Lower Extremities Musculoskeletal: Positive: Normal, Strength/ROM Intact Neurological: Positive: Speech Normal Psychiatric: Positive: Normal, Affect/Mood Appropriate Diagnostics - Vital Signs Vital Signs Temp Pulse Resp BP Pulse Ox 02/19/18 18:27 97.9 F 65 20 149/88 97 - Laboratory Lab Results: Lab Results 02/19/18 02/19/18 Range/Units 19:21 19:21 WBC 5.3 (3.5-10.8) 10^3/ul RBC 3.66 L (4.00-5.40) 10^6/ul Hgb 11.7 L (14.0-18.0) g/dl Hct 32 L (42-52) % MCV 88 (80-94) fL MCH 32 H (27-31) pg MCHC 36 (31-36) g/dl RDW 14 (10.5-15) % Plt Count 168 (150-450) 10^3/ul MPV 6.9 L (7.4-10.4) um3 Neut % (Auto) 67.3 (38-83) % Lymph % (Auto) 21.6 L (25-47) % Billings % (Auto) 7.7 H (0-7) % Eos % (Auto) 2.3 (0-6) % Baso % (Auto) 1.1 (0-2) % Absolute Neuts (auto) 3.6 (1.5-7.7) 10^3/ul Absolute Lymphs (auto) 1.2 (1.0-4.8) 10^3/ul Absolute Monos (auto) 0.4 (0-0.8) 10^3/ul Absolute Eos (auto) 0.1 (0-0.6) 10^3/ul Absolute Basos (auto) 0.1 (0-0.2) 10^3/ul Absolute Nucleated RBC 0 10^3/ul Nucleated RBC % 0.1 INR (Anticoag Therapy) 0.98 (0.77-1.02) Result Diagrams: 02/19/18 19:21 02/19/18 19:21 Lab Statement: Any lab studies that have been ordered have been reviewed, and results considered in the medical decision making process. Course/Dx - Course Course Of Treatment: During the course of treatment, the patient is evaluated for chest pain worse shortness of breath for similar that ideology. Cardiac workup completed as patient is high risk due to his 2 MIs, previous brain cancer diagnosis, COPD as well as is a heavy smoker. Labs obtained including troponin. Chest x-ray shows: IMPRESSION: NODULAR RIGHT BASILAR INFILTRATE AND SMALL BILATERAL PLEURAL EFFUSIONS. RECOMMEND FOLLOW-UP CHEST X-RAYS TO RESOLUTION. IF THE INFILTRATE DOES NOT RESOLVE THEN A. CT OF THE CHEST WOULD BE INDICATED. Due to his significant history of brain cancer, COPD as well as smoking history, I strongly encouraged him to follow up with his PCP for a repeat x-ray versus CT scan if symptoms do not resolve. He is given a seven- day course of Levaquin and Robitussin with codeine for symptoms. He states he has an appointment with his PCP on Tuesday and will make sure they are made aware of the x-ray results. - Diagnoses Differential Diagnosis/HQI/PQRI: Positive: Pneumonia, Other - lung mass Provider Diagnoses: Pneumonia Discharge - Sign-Out/Discharge Documenting (check all that apply): Discharge/Admit/Transfer - Discharge Plan Condition: Stable Disposition: HOME Prescriptions: guaiFENesin/CODIEN 100MG-10MG* [Robitussin AC 100Mg-10Mg*] 10 ml PO Q4H PRN # 120 udc MDD 60 PRN Reason: Cough Levofloxacin TAB* [Levaquin TAB*] 750 mg PO DAILY #6 tab Patient Education Materials: Bacterial Pneumonia (ED) Referrals: Benja Lowery MD [Primary Care Provider] - Additional Instructions: Please follow up with PCP on Tuesday as scheduled. Please give this information to your PCP on Tuesday, you will likely need a follow up CT scan or Xray to assess improvement. CT: IMPRESSION: NODULAR RIGHT BASILAR INFILTRATE AND SMALL BILATERAL PLEURAL EFFUSIONS. RECOMMEND FOLLOW-UP CHEST X-RAYS TO RESOLUTION. IF THE INFILTRATE DOES NOT RESOLVE THEN A CT OF THE CHEST WOULD BE INDICATED. - Billing Disposition and Condition Condition: STABLE Disposition: Home
--- NOTE | 2018-02-19 20:01 | RAD ---
INDICATION: Shortness of breath, cough. COMPARISON: Comparison is made with a prior study from November 04, 2017. TECHNIQUE: Dual-energy PA and lateral views of the chest were obtained. FINDINGS: The heart is within normal limits in size. Mediastinal and hilar contours appear within normal limits. The lungs are underinflated. There is a nodular infiltrate at the right lung base and a patchy infiltrate at the left lung base and small bilateral pleural effusions. IMPRESSION: NODULAR RIGHT BASILAR INFILTRATE AND SMALL BILATERAL PLEURAL EFFUSIONS. RECOMMEND FOLLOW-UP CHEST X-RAYS TO RESOLUTION. IF THE INFILTRATE DOES NOT RESOLVE THEN A CT OF THE CHEST WOULD BE INDICATED.
[2018-02-19 20:16] VITALS: BP 144/92
[2018-02-19] MEDS ORDERED: Levofloxacin TAB* 250 MG PO ONE (20:17)
[2018-02-19] MEDS ORDERED: guaiFENesin/CODIEN 100MG-10MG* 5 ML UDC PO ONE (20:17)
== END 2018-02-19 20:27 | disposition home or self-care (01) ==
LOC: ED 18:24
DX: J18.9 Pneumonia, unspecified organism (principal); J90 Pleural effusion, not elsewhere classified; C71.9 Malignant neoplasm of brain, unspecified; J44.9 Chronic obstructive pulmonary disease, unspecified; I25.2 Old myocardial infarction; F17.210 Nicotine dependence, cigarettes, uncomplicated; Z88.8 Allergy status to other drugs, medicaments and biological substances; Z86.73 Personal history of transient ischemic attack (TIA), and cerebral infarction without residual deficits
CPT/HCPCS: 36415; 71046; 80053; 83605; 83735; 84484; 85025; 85610; 93005; 99283; A9270-GY

== ENCOUNTER 2018-03-26 15:36 | Emergency (ER) | payer MEDICARE, MEDICAID ==
[2018-03-26] MEDS ORDERED: HYDROcodone/ACETAMIN 5-325 MG* 1 TAB PO ONE (16:55)
--- NOTE | 2018-03-26 17:03 | ED ---
GI/ HPI - HPI Summary HPI Summary: This is scribbambi Gan documenting for attending Amanda Almanza MD This patient is a 47 year old M presenting to [facility] with a chief complaint of stabbing right groin pain radiating into the RLQ for the past few months that has been recently worsening. Patient states he is unable to get comfortable. Pain is currently a 9.5/10 in severity. Pain is worsened with steps. He reports a diagnosis of hernias in the R groin area roughly 6 months ago. He states he currently sees a urologist at [facility]. Patient states he had a hydrocodone about four hours ago. I, Dr. Almanza ,personally performed the services described in this documentation as scribed in my presence and it is both accurate and complete - History of Current Complaint Chief Complaint: EDGeneral Time Seen by Provider: 03/26/18 16:38 Stated Complaint: RT GROIN INJURY Hx Obtained From: Patient Onset/Duration: Started Weeks Ago, Worse Since Timing: Constant Severity: Moderate Current Severity: Severe Pain Intensity: 10 Location of Pain: Groin Additional Locations for Males: Scrotum Pain Characteristics: Sharp - stabbing Pain Radiates to: RLQ Associated Signs and Symptoms: Positive: Negative Aggravating Factor(s): Movement, Movement Alleviating Factor(s): Nothing - Allergy/Home Medications Allergies/Adverse Reactions: Allergies Allergy/AdvReac Type Severity Reaction Status Date / Time etodolac Allergy Anaphylatic Verified 03/26/18 15:40 Shock ketorolac [From Toradol] Allergy Anaphylatic Verified 03/26/18 15:40 Shock phenytoin [From Dilantin] Allergy Anaphylatic Verified 03/26/18 15:40 Shock tequilla Allergy Anaphylatic Uncoded 03/26/18 15:40 Shock PMH/Surg Hx/FS Hx/Imm Hx Previously Healthy: No Endocrine/Hematology History: Denies: Hx Anticoagulant Therapy, Hx Blood Disorders, Hx Diabetes, Hx Thyroid Disease Cardiovascular History: Reports: Hx Angina, Hx Coronary Artery Disease, Hx Hypercholesterolemia, Hx Hypertension, Hx Myocardial Infarction, Other Cardiovascular Problems/Disorders - cva Denies: Hx Pacemaker/ICD, Hx Valvular Heart Disease Respiratory History: Reports: Hx Chronic Obstructive Pulmonary Disease (COPD) Denies: Hx Asthma GI History: Reports: Hx Ulcer History: Denies: Hx Renal Disease Musculoskeletal History: Reports: Hx Arthritis Sensory History: Denies: Hx Hearing Aid Neurological History: Reports: Hx CVA, Hx Seizures, Other Neuro Impairments/ Disorders - BRAIN TUMOR Denies: Hx Dementia Psychiatric History: Denies: Hx Panic Disorder, Hx Substance Abuse - Cancer History Cancer Type, Location and Year: 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 Hx Chemotherapy: No Hx Radiation Therapy: No - Surgical History Surgery Procedure, Year, and Place: BRAIN-STEALTH & BIOPSIES(SEVERAL) @ [facility]; BOTH ELBOWS; Rt SHOULDER-ROTATOR; BOTH KNEES ACL REPAIR, BILAT KNEE REPLACEMENT - Immunization History Date of Tetanus Vaccine: Unsure Date of Influenza Vaccine: no Infectious Disease History: Yes Infectious Disease History: Reports: Hx of Known/Suspected MRSA - Right arm lump , 2002 Denies: Hx Clostridium Difficile, Hx Hepatitis, Hx Human Immunodeficiency Virus (HIV), Hx Shingles, Hx Tuberculosis, Hx Known/Suspected VRE, Hx Known/ Suspected VRSA, History Other Infectious Disease, Traveled Outside the [place] in Last 30 Days - Family History Known Family History: Positive: Cardiac Disease, Hypertension, Diabetes, Other - [place] - Social History Alcohol Use: None Hx Substance Use: No Substance Use Type: Reports: None Hx Tobacco Use: Yes Smoking Status (MU): Heavy Every Day Tobacco Smoker Type: Cigarettes Amount Used/How Often: 1 ppd Review of Systems Constitutional: Negative Cardiovascular: Negative Respiratory: Negative Positive: Abdominal Pain Positive: other - R groin pain Musculoskeletal: Negative Skin: Negative Neurological: Negative Psychological: Normal All Other Systems Reviewed And Are Negative: Yes Physical Exam - Summary Physical Exam Summary: Appearance: Well-appearing, moderate pain distress, well-nourished Skin: Warm, color reflects adequate perfusion, dry Head: Normal Head/Face inspection, atraumatic Eyes: Conjunctiva clear ENT: Normal inspection Neck: Supple, no nodes, no JVD Respiratory: Lungs clear, normal breath sounds, no respiratory distress Cardio: RRR, No murmur, pulses normal, brisk capillary refill Abdomen: Soft, RLQ tenderness, no masses no guarding, no rebound Bowel sounds: Present : 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 Psychological: Normal Neuro: Alert, muscle tone normal, no focal deficit ALEKSANDRA Otero, is present for exam. Triage Information Reviewed: Yes Vital Signs On Initial Exam: Initial Vitals Temp Pulse Resp BP Pulse Ox 98.8 F 71 16 161/101 97 03/26/18 15:41 03/26/18 15:41 03/26/18 15:41 03/26/18 15:41 03/26/18 15:41 Vital Signs Reviewed: Yes Diagnostics - Vital Signs Vital Signs Temp Pulse Resp BP Pulse Ox 03/26/18 16:39 63 148/82 97 03/26/18 15:41 98.8 F 71 16 161/101 97 - Laboratory Result Diagrams: 03/26/18 17:01 03/26/18 17:01 Lab Statement: Any lab studies that have been ordered have been reviewed, and results considered in the medical decision making process. - Additional Comments Diagnostic Additional Comments: A Testicular US reveals, as per radiologist: 1. NO EVIDENCE FOR TESTICULAR TORSION OR EPIDIDYMITIS. 2. SMALL RIGHT EPIDIDYMAL HEAD CYST, UNCHANGED. 3. SMALL RIGHT HYDROCELE. ED Physician has reviewed this report. Re-Evaluation - Re-Evaluation First Re-Evaluation Time: 18:20 Change: Worse Comment: requests more pain medication. Will give morphine. Awaiting CT. Given results of testicular US. Advised that Dr. Sutton will take over his care. GIGU Course/Dx - Course Course Of Treatment: 47 year old M presenting with stabbing right groin pain radiating into the RLQ for the past few months that has been recently worsening. He reports a diagnosis of hernias in the R groin area roughly 6 months ago. He states he currently sees a urologist at [facility]. Patient states he had a hydrocodone about four hours ago. A Testicular US reveals: "1. NO EVIDENCE FOR TESTICULAR TORSION OR EPIDIDYMITIS. 2. SMALL RIGHT EPIDIDYMAL HEAD CYST, UNCHANGED. 3. SMALL RIGHT HYDROCELE." Patient is given IV fluids and hydrocodone. Bloodwork is unremarkable. A CT A/P is ordered. Patient will be signed out to Dr. Sutton, pending CT results and disposition. - Diagnoses Differential Diagnoses - Male: Appendicitis, Incarcerated Hernia, Ischemic Bowel , Orchitis, Prostatitis, Testicular Torsion, Ureteral Calculi Provider Diagnoses: Right hydrocele, Right groin pain, Abdominal pain, Epididymal cyst Discharge - Sign-Out/Discharge Documenting (check all that apply): Sign-Out Patient Signing out patient TO: Joel Sutton - 03/26/18, 1900 - Discharge Plan Referrals: Benja Lowery MD [Primary Care Provider] -
[2018-03-26 17:16] LABS: ABS Basophils 0 10^3/ul (0-0.2); ABS Eosinophils 0.1 10^3/ul (0-0.6); ABS Lymphocytes 1.2 10^3/ul (1.0-4.8); ABS Monocytes 0.4 10^3/ul (0-0.8); ABS Neutrophils 3.3 10^3/ul (1.5-7.7); ABS Nucleated RBC 0 10^3/ul; Eosinophil % 2.7 % (0-6); Hematocrit 41 % (42-52); Hemoglobin 14.3 g/dl (14.0-18.0); Lymphocyte % 23.4 % (25-47); Mean Corpuscular HGB Conc 35 g/dl (31-36); Mean Corpuscular Hemoglobin 31 pg (27-31); Mean Corpuscular Volume 89 fL (80-94); Mean Platelet Volume 7.5 um3 (7.4-10.4); Nucleated Red Blood Cells % 0.1; Platelet Count 156 10^3/ul (150-450); Red Blood Count 4.64 10^6/ul (4.00-5.40); Red Cell Distribution Width 14 % (10.5-15)
[2018-03-26 17:32] LABS: EGFR Non-African American 75.7 (>60)
--- NOTE | 2018-03-26 17:36 | RAD ---
INDICATION: Right groin and testicular pain. COMPARISON: Comparison is made with a prior testicular ultrasound from March 23, 2017. TECHNIQUE: Multiple real-time images of the testicles were obtained including color Doppler images and Doppler tracings. FINDINGS: The testicles are normal in size, shape and echogenicity. The right testicle measured 5.3 x 2.4 x 3.2 cm and the left testicle measured 5.2 x 2.6 x 2.9 cm. No intratesticular mass is seen. There is a 0.1 cm cyst present within the right testicle which is unchanged. There is symmetric vascular flow within both testicles. There is a 0.4 x 0.2 x 0.2 cm right epididymal head cyst which is unchanged. There is a small right hydrocele. IMPRESSION: 1. NO EVIDENCE FOR TESTICULAR TORSION OR EPIDIDYMITIS. 2. SMALL RIGHT EPIDIDYMAL HEAD CYST, UNCHANGED. 3. SMALL RIGHT HYDROCELE.
[2018-03-26] MEDS ORDERED: NS 0.9% 1000 ML* 2,000 ML IV ONE (18:13)
[2018-03-26] MEDS ORDERED: Iohexol 300* (CONTRAST) 10 ML SDV IV ONE (19:06)
[2018-03-26] MEDS ORDERED: Metoclopramide IV* 5 MG/ML 2 ML VIAL IV SLOW PU ONE (19:34)
[2018-03-26] MEDS ORDERED: Morphine INJ* 2 MG/ML 1 ML SYRINGE (TWO MG - NEW SYRINGE VERSION) IV ONE (19:34)
[2018-03-26 20:11] LABS: Urine Appearance Cloudy; Urine Blood Negative (Negative); Urine Color Yellow; Urine Ketones Negative (Negative); Urine Protein Negative (Negative); Urine Specific Gravity 1.014 (1.010-1.030); Urine Urobilinogen Negative (Negative)
--- NOTE | 2018-03-26 22:09 | ED ---
Progress - Progress Note Progress Note: Patient is signed out from Dr. Almanza awaiting CT results. - Results/Orders Results/Orders: A CT A/P with IV contrast reveals, as per radiologist: No CT findings to correlate with patient's symptomatology. Specifically no appendecitis. ED Physician has reviewed this report. Re-Evaluation - Re-Evaluation First Re-Evaluation Time: 18:20 Change: Worse Comment: requests more pain medication. Will give morphine. Awaiting CT. Given results of testicular US. Advised that Dr. Sutton will take over his care. Course/Dx - Course Course Of Treatment: 47 year old M presenting with stabbing right groin pain radiating into the RLQ for the past few months that has been recently worsening. Patient is signed out to Dr. Sutton awaiting CT results. A CT A/P reveals: No CT findings to correlate with patient's symptomatology. Specifically no appendecitis. Patient will be discharged. - Diagnoses Provider Diagnoses: Right hydrocele, Right groin pain, Abdominal pain, Epididymal cyst Discharge - Sign-Out/Discharge Documenting (check all that apply): Patient Departure - discharge, Receiving Sign-Out Receiving patient FROM: Amanda Almanza - Discharge Plan Condition: Stable Disposition: HOME Patient Education Materials: Abdominal Pain (ED) Referrals: Benja Lowery MD [Primary Care Provider] - 2 Days () Additional Instructions: RETURN TO THE EMERGENCY DEPARTMENT FOR CHANGING OR WORSENING SYMPTOMS. FOLLOW UP WITH PCP IN 1-2 DAYS. - Billing Disposition and Condition Condition: STABLE Disposition: Home
[2018-03-26 22:20] VITALS: BP 0/0
--- NOTE | 2018-03-27 07:40 | RAD ---
CLINICAL HISTORY: right groin pain, RLQ pain, right scrotal pain COMPARISON: March 23, 2017 TECHNIQUE: Multiple contiguous axial CT scans were obtained of the abdomen and pelvis after the administration of intravenous contrast. Coronal and sagittal multiplanar reformations are submitted for review. Oral contrast was administered. Delayed images were obtained through the abdomen. FINDINGS: LUNG BASES: The lung bases are clear. LIVER: The liver is diffusely low in attenuation compared to the spleen. There are no focal hepatic parenchymal masses. BILE DUCTS: There is no intrahepatic or extrahepatic biliary dilatation. GALLBLADDER: The gallbladder is normal, without pericholecystic inflammatory change. PANCREAS: The pancreas is normal, without mass or ductal dilatation. SPLEEN: Normal in size and appearance. UPPER GI TRACT: Evaluation of the gastrointestinal tract is limited by incomplete gastric distention. The upper GI tract is unremarkable. SMALL BOWEL AND MESENTERY: The small bowel is normal in contour, course, and caliber. There is no obstruction or dilatation. COLON: The colon is normal in contour, course, caliber. There is no pericolonic inflammatory change. There is a tubular, vermiform, hollow viscus that is blind ending, and originates from the cecum, consistent with a normal appendix. There is no periappendiceal inflammatory change. This is best seen on axial image 74 through 71. ADRENALS: Normal bilaterally. KIDNEYS: There is a stable punctate nonobstructing calculus of the lower pole of left kidney. BLADDER: The bladder is smooth in contour. PELVIC ORGANS: The prostate gland is normal. The seminal vesicles are symmetric. AORTA: The aorta is normal. IVC: Unremarkable LYMPH NODES: There is no lymphadenopathy by size criteria. ABDOMINAL WALL: There is no evidence for abdominal wall hernia. BONES AND SOFT TISSUES: There are mild diffuse degenerative changes. OTHER: None IMPRESSION: STABLE NONOBSTRUCTING LEFT RENAL CALYCEAL STONE. NO ACUTE CT PATHOLOGY OF THE VISUALIZED ABDOMEN OR PELVIS. R0
== END 2018-03-26 22:13 | disposition home or self-care (01) ==
LOC: ED 15:36
DX: N43.3 Hydrocele, unspecified (principal); N50.3 Cyst of epididymis; R10.9 Unspecified abdominal pain; F17.210 Nicotine dependence, cigarettes, uncomplicated; Z88.5 Allergy status to narcotic agent; Z88.8 Allergy status to other drugs, medicaments and biological substances
CPT/HCPCS: 36415; 74177; 76870; 80053; 81003; 83605; 85025; 86140; 96374; 96375; 99282; J2270; J2765; Q9967

== ENCOUNTER 2018-06-26 17:56 | Emergency (ER) | payer MEDICARE, MEDICAID ==
--- NOTE | 2018-06-26 19:52 | ED ---
Dizziness - HPI Summary HPI Summary: This patient is a 47 year old M presenting to ED with a chief complaint of dizziness since a couple months ago. The CC is described as remember when you re a kid and you hold youre breath to see how long you can hold it. He reports that episodes last anywhere from 6 seconds to 6 hours. The patient rates the pain 0/10 in severity. Symptoms aggravated by nothing. Symptoms alleviated by nothing. Patient reports nausea. Patient denies vomiting. The patient saw a wheel aligner and reports that it is not due to his heart. PMHx of terminal brain CA (astrocytoma glaucoma). The patient has HTN and has taken his blood pressure meds today. He also had a seizure 15 years ago. Patient no longer works due to this. - History Of Current Complaint Chief Complaint: EDDizziness Stated Complaint: DIZZINESS Time Seen by Provider: 06/26/18 19:43 Hx Obtained From: Patient Onset/Duration: Still Present Timing: Intermittent Episode Lasting - anywhere from 6 seconds to 6 hours Severity Currently: None Character: Unable To Describe - "remember when youre a kid and you hold youre breath to see how long you can hold it Aggravating Factor(s): Nothing Alleviating Factor(s): Nothing Associated Signs And Symptoms: Positive: Nausea. Negative: Vomiting - Allergies/Home Medications Allergies/Adverse Reactions: Allergies Allergy/AdvReac Type Severity Reaction Status Date / Time etodolac Allergy Anaphylatic Verified 06/26/18 18:05 Shock ketorolac [From Toradol] Allergy Anaphylatic Verified 06/26/18 18:05 Shock phenytoin [From Dilantin] Allergy Anaphylatic Verified 06/26/18 18:05 Shock tequilla Allergy Anaphylatic Uncoded 06/26/18 18:05 Shock PMH/Surg Hx/FS Hx/Imm Hx Endocrine/Hematology History: Denies: Hx Anticoagulant Therapy, Hx Blood Disorders, Hx Diabetes, Hx Thyroid Disease Cardiovascular History: Reports: Hx Angina, Hx Coronary Artery Disease, Hx Hypercholesterolemia, Hx Hypertension, Hx Myocardial Infarction, Other Cardiovascular Problems/Disorders - cva Denies: Hx Pacemaker/ICD, Hx Valvular Heart Disease Respiratory History: Reports: Hx Chronic Obstructive Pulmonary Disease (COPD) Denies: Hx Asthma GI History: Reports: Hx Ulcer History: Denies: Hx Renal Disease Musculoskeletal History: Reports: Hx Arthritis Sensory History: Denies: Hx Hearing Aid Neurological History: Reports: Hx CVA, Hx Seizures, Other Neuro Impairments/ Disorders - BRAIN TUMOR Denies: Hx Dementia Psychiatric History: Denies: Hx Panic Disorder, Hx Substance Abuse - Cancer History Cancer Type, Location and Year: 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 Hx Chemotherapy: No Hx Radiation Therapy: No - Surgical History Surgery Procedure, Year, and Place: BRAIN-STEALTH & BIOPSIES(SEVERAL) @ [facility]; BOTH ELBOWS; Rt SHOULDER-ROTATOR; BOTH KNEES ACL REPAIR, BILAT KNEE REPLACEMENT - Immunization History Date of Tetanus Vaccine: Unsure Date of Influenza Vaccine: no Infectious Disease History: No Infectious Disease History: Reports: Hx of Known/Suspected MRSA - Right arm lump , 2002 Denies: Hx Clostridium Difficile, Hx Hepatitis, Hx Human Immunodeficiency Virus (HIV), Hx Shingles, Hx Tuberculosis, Hx Known/Suspected VRE, Hx Known/ Suspected VRSA, History Other Infectious Disease, Traveled Outside the [place] in Last 30 Days - Family History Known Family History: Positive: Cardiac Disease, Hypertension, Diabetes, Other - CA - Social History Alcohol Use: Occasionally Hx Substance Use: No Substance Use Type: Reports: None Hx Tobacco Use: Yes Smoking Status (MU): Light Every Day Tobacco Smoker Type: Cigarettes Amount Used/How Often: 1 ppd Review of Systems Positive: Nausea. Negative: Vomiting Neurological: Other - dizziness All Other Systems Reviewed And Are Negative: Yes Physical Exam - Summary Physical Exam Summary: VITAL SIGNS: Reviewed. GENERAL: Patient is a well-developed and nourished MALE who is lying comfortable in the stretcher. Patient is not in any acute respiratory distress. HEAD AND FACE: No signs of trauma. No ecchymosis, hematomas or skull depressions. No sinus tenderness. EYES: PERRLA, EOMI x 2, No injected conjunctiva, no nystagmus. EARS: Hearing grossly intact. Ear canals and tympanic membranes are within normal limits. MOUTH: Oropharynx within normal limits. NECK: Supple, trachea is midline, no adenopathy, no JVD, no carotid bruit, no c- spine tenderness, neck with full ROM. CHEST: Symmetric, no tenderness at palpation LUNGS: Clear to auscultation bilaterally. No wheezing or crackles. CVS: Regular rate and rhythm, S1 and S2 present, no murmurs or gallops appreciated. ABDOMEN: Soft, non-tender. No signs of distention. No rebound no guarding, and no masses palpated. Bowel sounds are normal. EXTREMITIES: FROM in all major joints, no edema, no cyanosis or clubbing. NEURO: Alert and oriented x 3. No acute neurological deficits. Speech is normal and follows commands. SKIN: Dry and warm GCS: 15 Triage Information Reviewed: Yes Vital Signs On Initial Exam: Initial Vitals Temp Pulse Resp BP Pulse Ox 98.7 F 75 18 154/103 97 06/26/18 18:01 06/26/18 18:01 06/26/18 18:01 06/26/18 18:01 06/26/18 18:01 Vital Signs Reviewed: Yes Diagnostics - Vital Signs Vital Signs Temp Pulse Resp BP Pulse Ox 06/26/18 18:01 98.7 F 75 18 154/103 97 - Laboratory Result Diagrams: 06/26/18 20:15 06/26/18 20:15 Lab Statement: Any lab studies that have been ordered have been reviewed, and results considered in the medical decision making process. - Radiology CXR Radiology Interpretation Completed By: ED Physician - No acute processes. Pending radiologist official report. - CT Brain CT CT Interpretation Completed By: Radiologist - 1. No acute intracranial pathology. 2. Redemonstration of low density mass in the right temporal lobe, similar in appearance to prior CT. 3. Other chronic findings, as above. ED physician has reviewed this radiologist report. - EKG 2001 Cardiac Rate: NL - 67 BPM EKG Rhythm: Sinus Rhythm Summary of EKG Findings: Normal axis. Normal interval. No ischemic changes. Re-Evaluation - Re-Evaluation First Eval Re-Evaluation Time: 22:28 Change: Improved Comment: The patients BP is down and he is feeling better. Dizzy Course/Dx - Course Assessment/Plan: This patient is a 47 year old M presenting to ED with a chief complaint of dizziness since a couple months ago. In the ED course, the patient was given Clonidine. EKG done at 2001 reveals NSR at [address] reveals 1. No acute intracranial pathology. 2. Redemonstration of low density mass in the right temporal lobe, similar in appearance to prior CT. 3. Other chronic findings, as above. Bloodwork obtained. In the ED course the patient was given clonidine and Percocet. These alleviated his sx. The patient will be discharged and follow up with Dr. Kimble his PCP in two days. - Diagnoses Provider Diagnoses: HTN (hypertension), Dizziness Discharge - Sign-Out/Discharge Documenting (check all that apply): Patient Departure - Discharge Plan Condition: Stable Disposition: HOME Patient Education Materials: Chronic Hypertension (ED), Chronic Back Pain (DC) Referrals: Benja Lowery MD [Primary Care Provider] - 2 Days Additional Instructions: RETURN TO THE EMERGENCY DEPARTMENT FOR CHANGING OR WORSENING SYMPTOMS - Attestation Statements Document Initiated by Scribe: Yes Documenting Scribe: Krish Tejeda Provider For Whom Scribe is Documenting (Include Credential): Joel Sutton MD Scribe Attestation: Krish Maier, scribed for Joel Sutton MD on 06/26/18 at 2920.
[2018-06-26] MEDS ORDERED: cloNIDine TAB* 0.1 MG PO ONE (19:54)
[2018-06-26 20:26] LABS: ABS Basophils 0.1 10^3/ul (0-0.2); ABS Eosinophils 0.1 10^3/ul (0-0.6); ABS Lymphocytes 1.6 10^3/ul (1.0-4.8); ABS Monocytes 0.4 10^3/ul (0-0.8); ABS Neutrophils 3.7 10^3/ul (1.5-7.7); ABS Nucleated RBC 0 10^3/ul; Eosinophil % 2.3 % (0-6); Hematocrit 41 % (42-52); Hemoglobin 14.6 g/dl (14.0-18.0); Lymphocyte % 27.2 % (25-47); Mean Corpuscular HGB Conc 36 g/dl (31-36); Mean Corpuscular Hemoglobin 31 pg (27-31); Mean Corpuscular Volume 87 fL (80-94); Mean Platelet Volume 7.3 fL (7.4-10.4); Nucleated Red Blood Cells % 0.1; Platelet Count 147 10^3/ul (150-450); Red Blood Count 4.72 10^6/ul (4.00-5.40); Red Cell Distribution Width 14 % (10.5-15); White Blood Count 5.9 10^3/ul (3.5-10.8)
[2018-06-26 20:33] LABS: INR 0.9 (0.77-1.02)
[2018-06-26] MEDS ORDERED: oxyCODONE/Acetamin 5/325 MG* TAB PO ONE (21:26)
[2018-06-26 22:39] VITALS: BP 149/88
== END 2018-06-26 22:39 | disposition home or self-care (01) ==
LOC: ED 17:56
DX: I10 Essential (primary) hypertension (principal); R42 Dizziness and giddiness; F17.210 Nicotine dependence, cigarettes, uncomplicated; I25.10 Atherosclerotic heart disease of native coronary artery without angina pectoris; I25.2 Old myocardial infarction; E78.00 Pure hypercholesterolemia, unspecified; Z82.49 Family history of ischemic heart disease and other diseases of the circulatory system; C71.9 Malignant neoplasm of brain, unspecified; Z86.73 Personal history of transient ischemic attack (TIA), and cerebral infarction without residual deficits
CPT/HCPCS: 36415; 70450; 71045; 80053; 83735; 84484; 85025; 85610; 85730; 93005; 99283; A9270-GY

== ENCOUNTER 2018-07-13 16:13 | Emergency (ER) | payer MEDICARE, MEDICAID ==
--- NOTE | 2018-07-13 16:50 | ED ---
Headache - HPI Summary HPI Summary: The pt is a 47 y/o male with a PMHx of brain CA and multiple brain surgeries presenting to [facility] c/o sudden onset R temporal HORTON since 3.5-4 hrs prior to arrival. He describes the intensity as if similar to snapping a rubber band on ones wrist ten times. He notes light sensitivity, nausea, lethargy and loss of appetite and dizziness but denies numbness and tingling. He took Tylenol about 2 hours ago. The throbbing pain rated 10/10 in severity is aggravated by turning the head. Home Medications Medication Instructions Recorded Confirmed Type traZODone TAB* [Desyrel TAB*] 50 - 100 mg PO BEDTIME 02/04/16 03/26/18 History Aspirin 81 mg CHEW TAB* 81 mg PO DAILY #30 tab.chew 05/07/16 03/26/18 Rx Atorvastatin* [Lipitor 40 MG*] 40 mg PO DAILY 07/14/16 03/26/18 History Ibuprofen TAB* [Advil TAB*] 3 tab PO Q6H PRN 07/14/16 03/26/18 History GuaiFENesin DM* [Robitussin DM*] 10 ml PO Q6H PRN #120 ml 09/01/16 03/26/18 Rx amLODIPine TAB* [Norvasc 5 mg TAB*] 1 tab PO DAILY 09/13/16 03/26/18 History Albuterol HFA INHALER* [Ventolin 1 puff INH Q6H PRN #1 mdi 11/04/17 03/26/18 Rx HFA Inhaler*] Fluticasone NASAL SPRAY 50MCG* 2 spray BOTH NARES DAILY #1 btl 11/04/17 Rx [Flonase NASAL SPRAY 50MCG*] Lisinopril TAB* [Prinivil TAB*] 20 mg PO DAILY 12/06/17 03/26/18 History - History Of Current Complaint Chief Complaint: EDHeadache Stated Complaint: HEADACHE Time Seen by Provider: 07/13/18 16:41 Hx Obtained From: Patient Onset/Duration: Sudden Onset, Still Present Initially Headache Was: Initial Pain Scale(0-10)= - 10/10, Severe Currently Pain Is: Current Pain Scale(0-10)= - 10/10, Severe Character: Throbbing Location of Headache: Temporal - L Aggravating Factor: Bright Lights Allevating Factors: Nothing Associated Signs And Symptoms: Dizziness, Nausea - Allergies/Home Medications Allergies/Adverse Reactions: Allergies Allergy/AdvReac Type Severity Reaction Status Date / Time etodolac Allergy Anaphylatic Verified 07/13/18 16:18 Shock ketorolac [From Toradol] Allergy Anaphylatic Verified 07/13/18 16:18 Shock phenytoin [From Dilantin] Allergy Anaphylatic Verified 07/13/18 16:18 Shock tequilla Allergy Anaphylatic Uncoded 07/13/18 16:18 Shock PMH/Surg Hx/FS Hx/Imm Hx Previously Healthy: No Endocrine/Hematology History: Denies: Hx Anticoagulant Therapy, Hx Blood Disorders, Hx Diabetes, Hx Thyroid Disease Cardiovascular History: Reports: Hx Angina, Hx Coronary Artery Disease, Hx Hypercholesterolemia, Hx Hypertension, Hx Myocardial Infarction, Other Cardiovascular Problems/Disorders - cva Denies: Hx Pacemaker/ICD, Hx Valvular Heart Disease Respiratory History: Reports: Hx Chronic Obstructive Pulmonary Disease (COPD) Denies: Hx Asthma GI History: Reports: Hx Ulcer History: Denies: Hx Renal Disease Musculoskeletal History: Reports: Hx Arthritis Sensory History: Denies: Hx Hearing Aid Neurological History: Reports: Hx CVA, Hx Seizures, Other Neuro Impairments/ Disorders - BRAIN TUMOR Denies: Hx Dementia Psychiatric History: Denies: Hx Panic Disorder, Hx Substance Abuse - Cancer History Cancer Type, Location and Year: 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 Hx Chemotherapy: No Hx Radiation Therapy: No - Surgical History Surgery Procedure, Year, and Place: BRAIN-STEALTH & BIOPSIES(SEVERAL) @ [facility]; BOTH ELBOWS; Rt SHOULDER-ROTATOR; BOTH KNEES ACL REPAIR, BILAT KNEE REPLACEMENT - Immunization History Date of Tetanus Vaccine: Unsure Date of Influenza Vaccine: no Infectious Disease History: No Infectious Disease History: Reports: Hx of Known/Suspected MRSA - Right arm lump , 2002 Denies: Hx Clostridium Difficile, Hx Hepatitis, Hx Human Immunodeficiency Virus (HIV), Hx Shingles, Hx Tuberculosis, Hx Known/Suspected VRE, Hx Known/ Suspected VRSA, History Other Infectious Disease, Traveled Outside the [place] in Last 30 Days - Family History Known Family History: Positive: Cardiac Disease, Hypertension, Diabetes, Other - CA - Social History Occupation: Unemployed, Disabled Lives: With Family Alcohol Use: None Hx Substance Use: No Substance Use Type: Reports: None Hx Tobacco Use: Yes Smoking Status (MU): Light Every Day Tobacco Smoker Type: Cigarettes Amount Used/How Often: 1 ppd Review of Systems Constitutional: Other - Positive: Lethargy, dizziness, loss of appetite Eyes: Other - Positive: Light sensitivity Positive: Nausea Neurological: Negative - Tingling Positive: Headache. Negative: Numbness All Other Systems Reviewed And Are Negative: Yes Physical Exam - Summary Physical Exam Summary: Appearance: The patient is well-nourished in no acute distress and in no acute pain. Skin: The skin is warm and dry and skin color reflects adequate perfusion. HEENT: The head is normocephalic and atraumatic. MIldly tender in the R sikh. The pupils are equal and reactive. The conjunctivae are clear and without drainage. Nares are patent and without drainage. Mouth reveals moist mucous membranes and the throat is without erythema and exudate. The external ears are intact. The ear canals are patent and without drainage. The tympanic membranes are intact. Neck: The neck is supple with full range of motion and non-tender. There are no carotid bruits. There is no neck vein distension. Respiratory: Chest is non-tender. Lungs are clear to auscultation and breath sounds are symmetrical and equal. Cardiovascular: Heart is regular rate and rhythm. There is no murmur or rub auscultated. There is no peripheral edema and pulses are symmetrical and equal. Abdomen: The abdomen is soft and non-tender. There are normal bowel sounds heard in all four quadrants and there is no organomegaly palpated. Musculoskeletal: There is no back tenderness noted. Extremities are non-tender with full range of motion. There is good capillary refill. There is no peripheral edema or calf tenderness elicited. Neurological: Patient is alert and oriented to person, place and time. No meningeal signs. Brudzinskis and Kernigs signs are negative The patient has symmetrical motor strength in all four extremities. Cranial nerves are grossly intact. Deep tendon reflexes are symmetrical and equal in all four extremities. Psychiatric: The patient has an appropriate affect and does not exhibit any anxiety or depression. GCS:15 Triage Information Reviewed: Yes Vital Signs On Initial Exam: Initial Vitals Temp Pulse Resp BP Pulse Ox 98.9 F 105 20 130/86 97 07/13/18 16:16 07/13/18 16:16 07/13/18 16:16 07/13/18 16:16 07/13/18 16:16 Vital Signs Reviewed: Yes Diagnostics - Vital Signs Vital Signs Temp Pulse Resp BP Pulse Ox 07/13/18 16:16 98.9 F 105 20 130/86 97 - Laboratory Result Diagrams: 07/13/18 16:57 07/13/18 16:57 Lab Statement: Any lab studies that have been ordered have been reviewed, and results considered in the medical decision making process. - CT Brain CT CT Interpretation Completed By: Radiologist Summary of CT Findings: IMPRESSION: #. No new intracranial process evident. #. Stable appearance of RIGHT basal ganglia and temporal lobe mass with extension of hypodensity in the white matter extending to the RIGHT frontal lobe. #. Negative for new intra-axial or extra-axial lesion or hemorrhage. The ED physician reviewed this radiology report. Headache Course/Dx - Course Course Of Treatment: Mr. Arambula presented with the fairly acute onset of a right -sided headache. He has a history of right-sided brain tumor with at least [address] was obtained and labs which were all within normal limits. I recommended symptomatic treatment and reassured him. - Diagnoses Provider Diagnoses: Headache Discharge - Sign-Out/Discharge Documenting (check all that apply): Patient Departure - DC - Discharge Plan Condition: Stable Disposition: HOME Patient Education Materials: Acute Headache (ED) Referrals: Benja Lowery MD [Primary Care Provider] - Additional Instructions: Follow up with your PCP in 2 days Return to ED for any new or worsening symptoms - Billing Disposition and Condition Condition: STABLE Disposition: Home - Attestation Statements Document Initiated by Scribe: Yes Documenting Scribe: Radhkia Sinclair Provider For Whom Ashutosh is Documenting (Include Credential): Dr. Cedric Segundo MD Scribe Attestation: Radhika Maier , scribed for Dr. Cedric Segundo MD on 07/13/18 at 2047. Scribe Documentation Reviewed: Yes Provider Attestation: The documentation as recorded by the Radhika butler accurately reflects the service I personally performed and the decisions made by me, Dr. Cedric Segundo MD Status of Scribe Document: Viewed
[2018-07-13 17:13] LABS: ABS Basophils 0.1 10^3/ul (0-0.2); ABS Eosinophils 0.1 10^3/ul (0-0.6); ABS Lymphocytes 1.7 10^3/ul (1.0-4.8); ABS Monocytes 0.4 10^3/ul (0-0.8); ABS Nucleated RBC 0 10^3/ul; Eosinophil % 0.9 %; Hematocrit 43 % (42-52); Hemoglobin 15.2 g/dl (14.0-18.0); Lymphocyte % 27.8 %; Mean Corpuscular HGB Conc 36 g/dl (31-36); Mean Corpuscular Hemoglobin 31 pg (27-31); Mean Corpuscular Volume 88 fL (80-94); Mean Platelet Volume 7.6 fL (7.4-10.4); Nucleated Red Blood Cells % 0.1; Platelet Count 160 10^3/ul (150-450); Red Blood Count 4.85 10^6/ul (4.00-5.40); Red Cell Distribution Width 14 % (10.5-15); White Blood Count 6.3 10^3/ul (3.5-10.8)
[2018-07-13 17:17] LABS: Urine Appearance Clear; Urine Blood Negative (Negative); Urine Color Yellow; Urine Ketones Negative (Negative); Urine Protein Negative (Negative); Urine Specific Gravity 1.017 (1.010-1.030); Urine Urobilinogen Negative (Negative)
[2018-07-13 17:29] LABS: EGFR Non-African American 67.5 (>60)
[2018-07-13 19:16] VITALS: BP 0/0
== END 2018-07-13 19:10 | disposition home or self-care (01) ==
LOC: ED 16:13
DX: R51 Headache (principal); R42 Dizziness and giddiness; I25.10 Atherosclerotic heart disease of native coronary artery without angina pectoris; Z88.6 Allergy status to analgesic agent; F17.210 Nicotine dependence, cigarettes, uncomplicated
CPT/HCPCS: 36415; 70450; 80053; 81003; 83605; 85025; 99284

== ENCOUNTER → 2018-07-24 13:05 | Emergency (ER) | payer MEDICARE, MEDICAID | END | disposition home or self-care (01) | LOC: ED 13:05 | DX: Z02.9 Encounter for administrative examinations, unspecified (principal) ==

== ENCOUNTER → 2018-08-02 13:44 | Emergency (ER) | payer MEDICARE, MEDICAID ==
[~2018-08-02 13:44] MED LIST: Iohexol 300* (CONTRAST) 10 ML SDV IV ONE; Morphine VIAL* 4 MG/ML VIAL (1 ml vial) IV ONE; Ondansetron INJ* 2 MG/ML VIAL IV ONE
[2018-08-02 14:50] LABS: Hematocrit 40 % (42-52); Hemoglobin 14.3 g/dl (14.0-18.0); Mean Corpuscular HGB Conc 36 g/dl (31-36); Mean Corpuscular Hemoglobin 32 pg (27-31); Mean Corpuscular Volume 88 fL (80-94); Mean Platelet Volume 7.2 fL (7.4-10.4); Platelet Count 183 10^3/ul (150-450); Red Blood Count 4.47 10^6/ul (4.00-5.40); Red Cell Distribution Width 14 % (10.5-15); White Blood Count 6.3 10^3/ul (3.5-10.8)
[2018-08-02 15:09] LABS: Albumin 4.3 g/dL (3.2-5.2); BUN/Creatinine Ratio 15.4 (8-20); Calcium 9.4 mg/dL (8.6-10.3); EGFR Non-African American 76.5 (>60); Globulin 2.1 g/dL (2-4); Potassium 3.5 mmol/L (3.5-5.0); Total Bilirubin 0.6 mg/dL (0.2-1.0); Total Protein 6.4 g/dL (6.4-8.9)
--- NOTE | 2018-08-02 15:18 | ED ---
Adult Trauma - HPI Summary HPI Summary: Patient here status post fall from 12 foot ladder prior to arrival. He reports he was putting Abhishek ornaments on an outdoor tree when he leaned too far and fell from the ladder onto grass/children's toys/etc. He denies head injury or loss of consciousness and currently denies headache, visual change, neck pain , numbness, tingling, weakness, confusion or memory loss. He states he tried to slow his fall or catch himself on the way down which and as a result has mild left wrist pain along the ulnar aspect. Also has right hip and knee pain. Right hip pain goes into pelvic region and feels like something is punching him there every time he bears weight - also like muscle tightness. Right knee is swollen and kneecap is "floppy". H/o TKR here. Can move B/L LE's w/o restrictions. He denies numbness, tingling, weakness into LE's and again was weightbearing into the ED. Denies head, neck, mid back and low back pain out of range from typical aches/pain here. Denies chest pain, ab pain and no change in bowel/bladder habits since fall. He has not taken anything for pain prior to arrival. Reports he takes close to 6 g of ibuprofen daily for diffuse osteoarthritis. 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 He was given 3-5 years 16 years ago. Takes medication for hypertension, hyperlipidemia and... Otherwise denies anticoagulants. - History of Current Complaint Chief Complaint: EDHipPelvisInjury Stated Complaint: FELL OF A LADDER Time Seen by Provider: 08/02/18 14:03 Hx Obtained From: Patient Pain Intensity: 5 - Allergy/Home Medications Allergies/Adverse Reactions: Allergies Allergy/AdvReac Type Severity Reaction Status Date / Time etodolac Allergy Anaphylatic Verified 08/02/18 14:00 Shock ketorolac [From Toradol] Allergy Anaphylatic Verified 08/02/18 14:00 Shock phenytoin [From Dilantin] Allergy Anaphylatic Verified 08/02/18 14:00 Shock tequilla Allergy Anaphylatic Uncoded 07/13/18 16:18 Shock Home Medications: Home Medications Atorvastatin* [Lipitor*] 40 mg PO DAILY 08/02/18 [History Confirmed 08/02/18] Carisoprodol TAB* [Soma TAB*] 350 mg PO Q8HR PRN 08/02/18 [History Confirmed ] Diclofenac 1% GEL (NF) [Voltaren 1% GEL (NF)] 2 applic TOPICAL QID 08/02/18 [ History Confirmed 08/02/18] Diphenoxylat/Atrop 2.5-0.025M* [Lomotil TAB*] 1 tab PO QID PRN 08/02/18 [ History Confirmed 08/02/18] Esomeprazole(NF) [NexIUM(NF)] 40 mg PO BID 08/02/18 [History Confirmed 08/02/18] Hydrochlorothiazide TAB* [Hydrodiuril TAB*] 25 mg PO DAILY 08/02/18 [History Confirmed 08/02/18] Ibuprofen TAB* [Motrin TAB* 600 MG] 600 mg PO TID WITH MEALS 08/02/18 [History Confirmed 08/02/18] Orphenadrine Citrate [Orphenadrine Citrate ER] 100 mg PO BID 08/02/18 [History Confirmed 08/02/18] Oxybutynin TAB* [Ditropan TAB*] 2.5 mg PO BID 08/02/18 [History Confirmed ] Tamsulosin CAP* [Flomax CAP*] 0.4 mg PO DAILY 08/02/18 [History Confirmed ] oxyCODONE/Acetamin 10/325(NF) [Percocet 10/325 (NF)] 1 tab PO TID PRN 08/02/18 [ History Confirmed 08/02/18] traZODone TAB* [Desyrel TAB*] 150 mg PO BEDTIME PRN 08/02/18 [History Confirmed 08/02/18] PMH/Surg Hx/FS Hx/Imm Hx Previously Healthy: Yes Endocrine/Hematology History: Denies: Hx Anticoagulant Therapy, Hx Blood Disorders, Hx Diabetes, Hx Thyroid Disease Cardiovascular History: Reports: Hx Angina, Hx Coronary Artery Disease, Hx Hypercholesterolemia, Hx Hypertension, Hx Myocardial Infarction, Other Cardiovascular Problems/Disorders - cva Denies: Hx Pacemaker/ICD, Hx Valvular Heart Disease Respiratory History: Reports: Hx Chronic Obstructive Pulmonary Disease (COPD) Denies: Hx Asthma GI History: Reports: Hx Ulcer History: Denies: Hx Renal Disease Musculoskeletal History: Reports: Hx Arthritis - per pt, bodywide Sensory History: Denies: Hx Hearing Aid Neurological History: Reports: Hx CVA, Hx Seizures, Other Neuro Impairments/ Disorders - BRAIN TUMOR Denies: Hx Dementia Psychiatric History: Denies: Hx Panic Disorder, Hx Substance Abuse - Cancer History Cancer Type, Location and Year: 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 Hx Chemotherapy: No Hx Radiation Therapy: No - Surgical History Surgery Procedure, Year, and Place: BRAIN-STEALTH & BIOPSIES(SEVERAL) @ [facility]; BOTH ELBOWS; Rt SHOULDER-ROTATOR; BOTH KNEES ACL REPAIR, BILAT KNEE REPLACEMENT - Immunization History Date of Tetanus Vaccine: Unsure Date of Influenza Vaccine: no Infectious Disease History: No Infectious Disease History: Reports: Hx of Known/Suspected MRSA - Right arm lump , 2002 Denies: Hx Clostridium Difficile, Hx Hepatitis, Hx Human Immunodeficiency Virus (HIV), Hx Shingles, Hx Tuberculosis, Hx Known/Suspected VRE, Hx Known/ Suspected VRSA, History Other Infectious Disease, Traveled Outside the [place] in Last 30 Days - Family History Known Family History: Positive: Cardiac Disease, Hypertension, Diabetes, Other - [place] - Social History Occupation: Disabled Lives: With Family Alcohol Use: None Hx Substance Use: No Substance Use Type: Reports: None Hx Tobacco Use: Yes Smoking Status (MU): Light Every Day Tobacco Smoker Type: Cigarettes Amount Used/How Often: 1 ppd Review of Systems Constitutional: Negative Eyes: Negative ENT: Negative Cardiovascular: Negative Respiratory: Negative Gastrointestinal: Negative Positive: no symptoms reported Positive: Arthralgia, Myalgia. Negative: Decreased ROM Skin: Negative Neurological: Negative Psychological: Normal All Other Systems Reviewed And Are Negative: Yes Physical Exam Triage Information Reviewed: Yes Vital Signs On Initial Exam: Initial Vitals Temp Pulse Resp BP Pulse Ox 98.4 F 64 18 155/87 96 08/02/18 13:51 08/02/18 13:51 08/02/18 13:51 08/02/18 13:51 08/02/18 13:51 Vital Signs Reviewed: Yes Appearance: Positive: Well-Appearing, Well-Nourished, Pain Distress - mild - appears comfortable, pleasant sitting on stretcher Skin: Positive: Warm, Skin Color Reflects Adequate Perfusion, Dry - no erythema , no ecchymosis, no open skin wounds over affected areas - healed surgical scar over Rt knee Head/Face: Positive: Normal Head/Face Inspection Eyes: Positive: Normal, EOMI, MICKI - no photophobia ENT: Positive: Normal ENT inspection, Hearing grossly normal, Pharynx normal Dental: Positive: Other - edentulous Neck: Positive: Supple, Nontender Respiratory/Lung Sounds: Positive: Breath Sounds Present Cardiovascular: Positive: Pulses are Symmetrical in both Upper and Lower Extremities Abdomen Description: Positive: Other: - Rt lower pelvis w/ mild TTP Bowel Sounds: Positive: Present Musculoskeletal: Positive: Strength/ROM Intact - FROM B/L LE's; can bear weight and ambulate; full button sawyer w/ Lt hand but has pain in wrist - TTP over carpals, Pain @ - Rt hip and iliac region; Rt knee, Other Neurological: Positive: Normal, Sensory/Motor Intact, Alert, Oriented to Person Place, Time, CN Intact II-III Psychiatric: Positive: Normal Procedures - Splinting Left Upper Extremity Location: Lt wrist Pre-Made Type: velcro Splint: thumb spica Pre-Proc Neuro Vasc Exam: normal Post-Proc Neuro Vasc Exam: normal Diagnostics - Vital Signs Vital Signs Temp Pulse Resp BP Pulse Ox 08/02/18 13:51 98.4 F 64 18 155/87 96 - Laboratory Lab Results: Lab Results 08/02/18 08/02/18 Range/Units 14:37 14:37 WBC 6.3 (3.5-10.8) 10^3/ul RBC 4.47 (4.00-5.40) 10^6/ul Hgb 14.3 (14.0-18.0) g/dl Hct 40 L (42-52) % MCV 88 (80-94) fL MCH 32 H (27-31) pg MCHC 36 (31-36) g/dl RDW 14 (10.5-15) % Plt Count 183 (150-450) 10^3/ul MPV 7.2 L (7.4-10.4) fL Sodium 137 (135-145) mmol/L Potassium 3.5 (3.5-5.0) mmol/L Chloride 106 (101-111) mmol/L Carbon Dioxide 24 (22-32) mmol/L Anion Gap 7 (2-11) mmol/L BUN 16 (6-24) mg/dL Creatinine 1.04 (0.67-1.17) mg/dL Est GFR ( Amer) 92.6 (>60) Est GFR (Non-Af Amer) 76.5 (>60) BUN/Creatinine Ratio 15.4 (8-20) Glucose 92 (70-100) mg/dL Calcium 9.4 (8.6-10.3) mg/dL Total Bilirubin 0.60 (0.2-1.0) mg/dL AST 15 (13-39) U/L ALT 13 (7-52) U/L Alkaline Phosphatase 54 (34-104) U/L Total Protein 6.4 (6.4-8.9) g/dL Albumin 4.3 (3.2-5.2) g/dL Globulin 2.1 (2-4) g/dL Albumin/Globulin Ratio 2.0 (1-3) Result Diagrams: 08/02/18 14:37 08/02/18 14:37 Lab Statement: Any lab studies that have been ordered have been reviewed, and results considered in the medical decision making process. Re-Evaluation - Re-Evaluation First Eval Change: Improved Adult Trauma Course/Dx - Course Course Of Treatment: CT pelvis: no fx, no hemorrhage. Wrist XR: possible scaphoid fx. Knee XR: no fx, no dislocation, no fluid. Prefabricated wrist splint placed - advised close f/u w/ Dr. Arguelles, pt's ortho specialist, for wrist injury as well as Rt hip and knee pain. Pt declines crutch use and will use his cane. No s/sx of concussion - education to watch for sx. Reviewed danger s/sx of when to return to ED. Pt agrees w/ plan. - Diagnoses Provider Diagnoses: Fall from height of greater than 3 feet, Right hip pain, Right knee pain, Fracture of scaphoid bone of left wrist Discharge - Sign-Out/Discharge Documenting (check all that apply): Patient Departure - Discharge Plan Condition: Stable Disposition: HOME Prescriptions: HYDROcodone/ACETAMIN 5-325 MG* [[place] 5-325 TAB*] 1 tab PO Q6H PRN #8 tab MDD 4 PRN Reason: Pain Patient Education Materials: Wrist Fracture in Adults (ED), Knee Pain (ED), Hip Pain (ED) Referrals: Pj Arguelles MD [Medical Doctor] - Additional Instructions: REST, ICE, ELEVATE AND KEEP SPLINT CLEAN, DRY AND IN PLACE UNTIL SEEN BY ORTHOPEDICS. Call orthopedics today to schedule follow-up You may take ibuprofen 600mg every 6 hours with food alternating with acetaminophen extra strength every 6 hours as needed for pain. DO NOT EXCEED 2,400MG OF IBUPROFEN IN 24 HOURS DO NOT EXCEED 4,000MG OF ACETAMINOPHEN IN 24 HOURS *If you develop numbness, tingling, weakness, swelling or skin discoloration, remove splint and elevate arm for 20 minutes. If symptoms persist, return to ED For your hip and knee, you may also apply ice and implement gentle stretches to prevent stiffness. You may utilize 1 crutch to reduce full weight bearing as needed. If you develop difficulty moving lower extremity or weight bearing, return to the ED - Billing Disposition and Condition Condition: STABLE Disposition: Home
[2018-08-02 16:54] VITALS: BP 157/89
== END | disposition home or self-care (01) ==
LOC: ED 13:44
DX: S62.002A Unspecified fracture of navicular [scaphoid] bone of left wrist, initial encounter for closed fracture (principal); M25.551 Pain in right hip; M25.561 Pain in right knee; W11.XXXA Fall on and from ladder, initial encounter; Y93.89 Activity, other specified; Y92.9 Unspecified place or not applicable; C71.9 Malignant neoplasm of brain, unspecified; F17.210 Nicotine dependence, cigarettes, uncomplicated
CPT/HCPCS: 36415; 72193; 80053; 85027; 96374; 96375; 99282; J2270; J2405; Q9967

== ENCOUNTER 2018-10-02 18:10 | Emergency (ER) | payer MEDICARE, MEDICAID ==
--- NOTE | 2018-10-02 20:15 | ED ---
Adult Trauma - HPI Summary HPI Summary: Patient complains of right shoulder, right hip, right wrist pain status post mechanical fall on the ice 8:30 AM this morning. Denies head injury, LOC, N/V, vision change, AMS, any other symptoms pain or injury. Patient ambulatory since. No blood thinner. Patient states he has been taking ibuprofen with no relief. Medical history is benign cancer, DDD, CT, CVA, HTN, HDL. - History of Current Complaint Chief Complaint: EDTraumaMultiple Stated Complaint: FALL/RT HIP AND ARM PAIN Time Seen by Provider: 10/02/18 19:05 Hx Obtained From: Patient Mechanism of Injury: Fall Ambulatory at the Scene: Yes Loss of Consciousness: no loss of consciousness Onset/Duration: Started Hours Ago Onset of Pain: Immediate Onset Severity: Severe Current Severity: Severe Pain Intensity: 9 Pain Scale Used: 0-10 Numeric Location: Abdomen/Pelvis, Extremities Character: Aching Aggravating Factor(s): Movement Alleviating Factor(s): Nothing Associated Signs & Symptoms: Positive: Negative - Allergy/Home Medications Allergies/Adverse Reactions: Allergies Allergy/AdvReac Type Severity Reaction Status Date / Time etodolac Allergy Anaphylatic Verified 08/02/18 14:00 Shock ketorolac [From Toradol] Allergy Anaphylatic Verified 08/02/18 14:00 Shock phenytoin [From Dilantin] Allergy Anaphylatic Verified 08/02/18 14:00 Shock tequilla Allergy Anaphylatic Uncoded 07/13/18 16:18 Shock PMH/Surg Hx/FS Hx/Imm Hx Endocrine/Hematology History: Denies: Hx Anticoagulant Therapy, Hx Blood Disorders, Hx Diabetes, Hx Thyroid Disease Cardiovascular History: Reports: Hx Angina, Hx Coronary Artery Disease, Hx Hypercholesterolemia, Hx Hypertension, Hx Myocardial Infarction, Other Cardiovascular Problems/Disorders - cva Denies: Hx Pacemaker/ICD, Hx Valvular Heart Disease Respiratory History: Reports: Hx Chronic Obstructive Pulmonary Disease (COPD) Denies: Hx Asthma GI History: Reports: Hx Ulcer History: Denies: Hx Renal Disease Musculoskeletal History: Reports: Hx Arthritis - per pt, bodywide Sensory History: Denies: Hx Hearing Aid Neurological History: Reports: Hx CVA, Hx Seizures, Other Neuro Impairments/ Disorders - BRAIN TUMOR Denies: Hx Dementia Psychiatric History: Denies: Hx Panic Disorder, Hx Substance Abuse - Cancer History Cancer Type, Location and Year: 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 Hx Chemotherapy: No Hx Radiation Therapy: No - Surgical History Surgery Procedure, Year, and Place: BRAIN-STEALTH & BIOPSIES(SEVERAL) @ [facility]; BOTH ELBOWS; Rt SHOULDER-ROTATOR; BOTH KNEES ACL REPAIR, BILAT KNEE REPLACEMENT - Immunization History Date of Tetanus Vaccine: Unsure Date of Influenza Vaccine: no Infectious Disease History: No Infectious Disease History: Reports: Hx of Known/Suspected MRSA - Right arm lump , 2002 Denies: Hx Clostridium Difficile, Hx Hepatitis, Hx Human Immunodeficiency Virus (HIV), Hx Shingles, Hx Tuberculosis, Hx Known/Suspected VRE, Hx Known/ Suspected VRSA, History Other Infectious Disease, Traveled Outside the [place] in Last 30 Days - Family History Known Family History: Positive: Cardiac Disease, Hypertension, Diabetes, Other - [place] - Social History Alcohol Use: None Hx Substance Use: No Substance Use Type: Reports: None Hx Tobacco Use: Yes Smoking Status (MU): Light Every Day Tobacco Smoker Type: Cigarettes Amount Used/How Often: 1 ppd Review of Systems Constitutional: Negative Eyes: Negative ENT: Negative Cardiovascular: Negative Respiratory: Negative Gastrointestinal: Negative Genitourinary: Negative Musculoskeletal: Other Skin: Negative Neurological: Negative Psychological: Normal All Other Systems Reviewed And Are Negative: Yes Physical Exam - Summary Physical Exam Summary: No ecchymosis, erythema, deformity, extra warmth, swelling noted at right shoulder, right wrist, right hip. Patient moves all limbs freely with some pain. PMS intact distally on right upper extremity and right lower extremity. Triage Information Reviewed: Yes Vital Signs On Initial Exam: Initial Vitals Temp Pulse Resp BP Pulse Ox 97.8 F 70 19 117/88 96 10/02/18 18:30 10/02/18 18:30 10/02/18 18:30 10/02/18 18:30 10/02/18 18:30 Vital Signs Reviewed: Yes Appearance: Positive: Well-Appearing Skin: Positive: Warm Head/Face: Positive: Normal Head/Face Inspection Eyes: Positive: Normal Neck: Positive: Supple Respiratory/Lung Sounds: Positive: Clear to Auscultation Cardiovascular: Positive: Normal Abdomen Description: Positive: Nontender Musculoskeletal: Positive: Normal Neurological: Positive: Normal Psychiatric: Positive: Normal AVPU Assessment: Alert - [place] Coma Scale Best Eye Response: 4 - Spontaneous Best Motor Response: 6 - Obeys Commands Best Verbal Response: 5 - Oriented Coma Scale Total: 15 Diagnostics - Vital Signs Vital Signs Temp Pulse Resp BP Pulse Ox 10/02/18 18:30 97.8 F 70 19 117/88 96 - Laboratory Lab Statement: Any lab studies that have been ordered have been reviewed, and results considered in the medical decision making process. Adult Trauma Course/Dx - Course Course Of Treatment: Patient complains of right shoulder, right hip, right wrist pain status post mechanical fall on the ice 8:30 AM this morning. Denies head injury, LOC, N/V, vision change, AMS, any other symptoms pain or injury. Patient ambulatory since. No blood thinner. Patient states he has been taking ibuprofen with no relief. Medical history is brain cancer, DDD, CT, CVA, HTN, HDL. Physical exam:No ecchymosis, erythema, deformity, extra warmth, swelling noted at right shoulder, right wrist, right hip. Patient moves all limbs freely with some pain. PMS intact distally on right upper extremity and right lower extremity. Vital signs within normal limits. X-ray of right shoulder unremarkable. X-ray right hip unremarkable. X-ray right wrist unremarkable. Patient given wrist brace per request. Alternate ibuprofen and Tylenol for pain. - Diagnoses Provider Diagnoses: Fall Discharge - Sign-Out/Discharge Documenting (check all that apply): Patient Departure Patient Received Moderate/Deep Sedation with Procedure: No - Discharge Plan Condition: Stable Disposition: HOME Prescriptions: Cyclobenzaprine TAB* [Flexeril 10 MG TAB*] 10 mg PO TID PRN 5 Days #15 tab PRN Reason: Pain Patient Education Materials: Wrist Injury (ED), Shoulder Pain (ED), Hip Pain ( ED) Referrals: Benja Lowery MD [Primary Care Provider] - Additional Instructions: Alternate ibuprofen 600 mg with Tylenol 650 mg every 3 hours for pain control. Also use ice. Rest affected joints. Take Flexeril as directed. Return to the ED for any new or worsening symptoms - Billing Disposition and Condition Condition: STABLE Disposition: Home
[2018-10-02 20:36] VITALS: BP 135/92
== END 2018-10-02 20:37 | disposition home or self-care (01) ==
LOC: ED 18:10
DX: S79.911A Unspecified injury of right hip, initial encounter (principal); M25.511 Pain in right shoulder; M25.531 Pain in right wrist; F17.210 Nicotine dependence, cigarettes, uncomplicated; W00.0XXA Fall on same level due to ice and snow, initial encounter; Y92.9 Unspecified place or not applicable; I25.10 Atherosclerotic heart disease of native coronary artery without angina pectoris; E78.00 Pure hypercholesterolemia, unspecified; I10 Essential (primary) hypertension; I25.2 Old myocardial infarction; J44.9 Chronic obstructive pulmonary disease, unspecified; M19.90 Unspecified osteoarthritis, unspecified site; Z85.841 Personal history of malignant neoplasm of brain
CPT/HCPCS: 99282

== ENCOUNTER 2019-03-15 16:15 | Emergency (ER) | payer MEDICARE, MEDICAID ==
[2019-03-15 16:41] LABS: ABS Basophils 0.1 10^3/ul (0-0.2); ABS Eosinophils 0.1 10^3/ul (0-0.6); ABS Lymphocytes 1.6 10^3/ul (1.0-4.8); ABS Monocytes 0.6 10^3/ul (0-0.8); ABS Neutrophils 5.1 10^3/ul (1.5-7.7); Eosinophil % 0.8 %; Hematocrit 37 % (42-52); Hemoglobin 13.4 g/dL (14.0-18.0); Lymphocyte % 21.8 %; Mean Corpuscular HGB Conc 37 g/dL (31-36); Mean Corpuscular Hemoglobin 32 pg (27-31); Mean Corpuscular Volume 88 fL (80-94); Mean Platelet Volume 7.3 fL (7.4-10.4); Platelet Count 168 10^3/uL (150-450); Red Cell Distribution Width 14 % (10-15); White Blood Count 7.4 10^3/uL (3.5-10.8)
[2019-03-15 16:45] LABS: INR 0.96 (0.82-1.09)
[2019-03-15 16:57] LABS: Albumin 4.2 g/dL (3.2-5.2); BUN/Creatinine Ratio 15.7 (8-20); Calcium 8.8 mg/dL (8.6-10.3); EGFR African American 49.6 (>60); Globulin 2.1 g/dL (2-4); Potassium 2.8 mmol/L (3.5-5.0); Total Bilirubin 0.4 mg/dL (0.2-1.0); Total Protein 6.3 g/dL (6.4-8.9)
[2019-03-15 16:59] LABS: Troponin I 0.01 ng/mL (<0.04)
--- NOTE | 2019-03-15 17:31 | ED ---
HPI Chest Pain - HPI Summary HPI Summary: A 48 y/o male brought in by [facility] ambulance presents to [facility] with a chief complaint of intermittent chest pain today. He notes that yesterday he felt dizzy and SOB. Today he had dizzy spells with left sided chest pain radiating to his jaw at 10:30 along with nausea and a headache. He says now he has dizziness, intermittent chest pain, and a headache. He says that he has had problems with dizziness "for a while". He notes that he has lost 40-45 pounds in the last 1.5 months. He says that he has been drinking a lot of water. He was with his son today, and his son called an ambulance for him when he had an episode of CP and dropped down to a knee. His BP was also the lowest that he has seen. - History of Current Complaint Chief Complaint: EDChestPainROMI Time Seen by Provider: 03/15/19 16:57 Hx Obtained From: Patient, EMS Onset/Duration: Started Days Ago, Still Present Timing: Intermittent Initial Severity: Severe Current Severity: Severe Pain Intensity: 8 Pain Scale Used: 0-10 Numeric Chest Pain Location: Diffuse Chest Pain Radiates: Yes Chest Pain Radiates To:: Jaw Character: Other: - unable to describe Aggravating Factor(s): Nothing Alleviating Factor(s): Nothing Associated Signs and Symptoms: Positive: Headaches, Dizziness, Shortness of Breath, Nausea. Negative: Fever - Allergy/Home Medications Allergies/Adverse Reactions: Allergies Allergy/AdvReac Type Severity Reaction Status Date / Time etodolac Allergy Anaphylatic Verified 03/15/19 16:23 Shock ketorolac [From Toradol] Allergy Anaphylatic Verified 03/15/19 16:23 Shock phenytoin [From Dilantin] Allergy Anaphylatic Verified 03/15/19 16:23 Shock tequilla Allergy Anaphylatic Uncoded 03/15/19 16:23 Shock Home Medications: Home Medications Doxycycline Hyclate 200 mg PO DAILY 03/15/19 [History Confirmed 03/15/19] PMH/Surg Hx/FS Hx/Imm Hx Endocrine/Hematology History: Denies: Hx Anticoagulant Therapy, Hx Blood Disorders, Hx Diabetes, Hx Thyroid Disease Cardiovascular History: Reports: Hx Angina, Hx Coronary Artery Disease, Hx Hypercholesterolemia, Hx Hypertension, Hx Myocardial Infarction, Other Cardiovascular Problems/Disorders - cva Denies: Hx Pacemaker/ICD, Hx Valvular Heart Disease Respiratory History: Reports: Hx Chronic Obstructive Pulmonary Disease (COPD) Denies: Hx Asthma GI History: Reports: Hx Ulcer History: Denies: Hx Renal Disease Musculoskeletal History: Reports: Hx Arthritis - per pt, bodywide Sensory History: Denies: Hx Hearing Aid Neurological History: Reports: Hx CVA, Hx Seizures, Other Neuro Impairments/ Disorders - BRAIN TUMOR Denies: Hx Dementia Psychiatric History: Denies: Hx Panic Disorder, Hx Substance Abuse - Cancer History Cancer Type, Location and Year: 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 Hx Chemotherapy: No Hx Radiation Therapy: No - Surgical History Surgery Procedure, Year, and Place: BRAIN-STEALTH & BIOPSIES(SEVERAL) @ [facility]; BOTH ELBOWS; Rt SHOULDER-ROTATOR; BOTH KNEES ACL REPAIR, BILAT KNEE REPLACEMENT - Immunization History Date of Tetanus Vaccine: Unsure Date of Influenza Vaccine: no Infectious Disease History: No Infectious Disease History: Reports: Hx of Known/Suspected MRSA - Right arm lump , 2002 Denies: Hx Clostridium Difficile, Hx Hepatitis, Hx Human Immunodeficiency Virus (HIV), Hx Shingles, Hx Tuberculosis, Hx Known/Suspected VRE, Hx Known/ Suspected VRSA, History Other Infectious Disease, Traveled Outside the [place] in Last 30 Days - Family History Known Family History: Positive: Cardiac Disease, Hypertension, Diabetes, Other - [place] - Social History Alcohol Use: None Hx Substance Use: No Substance Use Type: Reports: None Hx Tobacco Use: Yes Smoking Status (MU): Light Every Day Tobacco Smoker Type: Cigarettes Amount Used/How Often: 1 ppd Review of Systems Negative: Fever Positive: Chest Pain Positive: Shortness Of Breath Positive: Nausea Neurological: Other - positive: dizziness Positive: Headache All Other Systems Reviewed And Are Negative: Yes Physical Exam - Summary Physical Exam Summary: Appearance: The patient is well-nourished in no acute distress and in no acute pain. Skin: The skin is warm and dry and skin color reflects adequate perfusion. HEENT: The head is normocephalic and atraumatic. The pupils are equal and reactive. The conjunctivae are clear and without drainage. Nares are patent and without drainage. Mouth reveals moist mucous membranes and the throat is without erythema and exudate. The external ears are intact. The ear canals are patent and without drainage. The tympanic membranes are intact. Neck: The neck is supple with full range of motion and non-tender. There are no carotid bruits. There is no neck vein distension. Respiratory: Chest is non-tender. Lungs are clear to auscultation and breath sounds are symmetrical and equal. Cardiovascular: Heart is regular rate and rhythm. There is no murmur or rub auscultated. There is no peripheral edema and pulses are symmetrical and equal. Abdomen: The abdomen is soft and non-tender. There are normal bowel sounds heard in all four quadrants and there is no organomegaly palpated. Musculoskeletal: There is no back tenderness noted. Extremities are non-tender with full range of motion. There is good capillary refill. There is no peripheral edema or calf tenderness elicited. Neurological: Patient is alert and oriented to person, place and time. The patient has symmetrical motor strength in all four extremities. Cranial nerves are grossly intact. Deep tendon reflexes are symmetrical and equal in all four extremities. Psychiatric: The patient has an appropriate affect and does not exhibit any anxiety or depression. Triage Information Reviewed: Yes Vital Signs On Initial Exam: Initial Vitals Temp Pulse Resp BP Pulse Ox 97.8 F 69 16 98/64 95 03/15/19 16:17 03/15/19 16:17 03/15/19 16:17 03/15/19 16:17 03/15/19 16:17 Vital Signs Reviewed: Yes Diagnostics - Vital Signs Vital Signs Temp Pulse Resp BP Pulse Ox 03/15/19 17:01 27 03/15/19 16:53 72 24 112/62 97 03/15/19 16:22 71 20 98/64 97 03/15/19 16:21 69 99 03/15/19 16:17 97.8 F 69 16 98/64 95 - Laboratory Lab Results: Lab Results 03/15/19 03/15/19 03/15/19 Range/Units 16:33 16:33 16:33 WBC 7.4 (3.5-10.8) 10^3/uL RBC 4.20 (4.18-5.48) 10^6 /uL Hgb 13.4 L (14.0-18.0) g/dL Hct 37 L (42-52) % MCV 88 (80-94) fL MCH 32 H (27-31) pg MCHC 37 H (31-36) g/dL RDW 14 (10-15) % Plt Count 168 (150-450) 10^3/uL MPV 7.3 L (7.4-10.4) fL Neut % (Auto) 68.8 % Lymph % (Auto) 21.8 % [place] % (Auto) 7.7 % Eos % (Auto) 0.8 % Baso % (Auto) 0.9 % Absolute Neuts (auto) 5.1 (1.5-7.7) 10^3/ul Absolute Lymphs (auto) 1.6 (1.0-4.8) 10^3/ul Absolute Monos (auto) 0.6 (0-0.8) 10^3/ul Absolute Eos (auto) 0.1 (0-0.6) 10^3/ul Absolute Basos (auto) 0.1 (0-0.2) 10^3/ul Absolute Nucleated RBC 0.0 10^3/ul Nucleated RBC % 0.0 INR (Anticoag Therapy) 0.96 (0.82-1.09) Sodium 132 L (135-145) mmol/L Potassium 2.8 L (3.5-5.0) mmol/L Chloride 103 (101-111) mmol/L Carbon Dioxide 21 L (22-32) mmol/L Anion Gap 8 (2-11) mmol/L BUN 28 H (6-24) mg/dL Creatinine 1.78 H (0.67-1.17) mg/dL Est GFR ( Amer) 49.6 (>60) Est GFR (Non-Af Amer) 41.0 (>60) BUN/Creatinine Ratio 15.7 (8-20) Glucose 113 H (70-100) mg/dL Calcium 8.8 (8.6-10.3) mg/dL Total Bilirubin 0.40 (0.2-1.0) mg/dL AST 23 (13-39) U/L ALT 26 (7-52) U/L Alkaline Phosphatase 55 (34-104) U/L Troponin I 0.01 (<0.04) ng/mL Total Protein 6.3 L (6.4-8.9) g/dL Albumin 4.2 (3.2-5.2) g/dL Globulin 2.1 (2-4) g/dL Albumin/Globulin Ratio 2.0 (1-3) Result Diagrams: 03/15/19 16:33 03/15/19 16:33 Lab Statement: Any lab studies that have been ordered have been reviewed, and results considered in the medical decision making process. - EKG 16:11 Cardiac Rate: NL - 68 bpm EKG Rhythm: Sinus Rhythm Summary of EKG Findings: Normal sinus rhythm, normal ST, no ectopy, no STEMI. Chest Pain Course/Dx - Course Course Of Treatment: Mr. Arambula has had cardiac problems in the past. He started with an atypical chest pain today and was concerned that it could be his heart. He was nontoxic in appearance with stable vital signs. He was placed on the monitor while labs were obtained including a delayed troponin which was negative. EKG and chest x-ray were unremarkable. I'm not sure the etiology of his chest pain does not appear to be a dangerous process at this time. I recommended close follow-up - Diagnoses Provider Diagnoses: Dehydration, Syncope Discharge - Sign-Out/Discharge Documenting (check all that apply): Patient Departure - DC Patient Received Moderate/Deep Sedation with Procedure: No - Discharge Plan Condition: Stable Disposition: HOME Patient Education Materials: Dehydration (ED), Syncope (DC) Referrals: Benja Lowery MD [Primary Care Provider] - (2-3 days) Additional Instructions: Return to the ED for new or worsening symptoms. Follow up with your PCP in 2-3 days. - Billing Disposition and Condition Condition: STABLE Disposition: Home - Attestation Statements Document Initiated by Ashutosh: Yes Documenting Scribe: Lito Pemberton Provider For Whom Ashutosh is Documenting (Include Credential): Levi Segundo MD Scribe Attestation: I, Lito Pemberton, scribed for Levi Segundo MD on 03/15/19 at 2204. Scribe Documentation Reviewed: Yes Provider Attestation: The documentation as recorded by the Lito butler accurately reflects the service I personally performed and the decisions made by me, Levi Segundo MD Status of Scribe Document: Viewed
[2019-03-15] MEDS ORDERED: NS 0.9% 1000 ML** 1,000 ML IV ONE (17:39)
[2019-03-15] MEDS ORDERED: KCL 20 MEQ/100 ML IVPREMIX* 20 MEQ/100 ML BAG IV ONE (17:40)
[2019-03-15 20:57] VITALS: BP 104/64
== END 2019-03-15 20:56 | disposition home or self-care (01) ==
LOC: ED 16:15
DX: E86.0 Dehydration (principal); R55 Syncope and collapse; Z88.8 Allergy status to other drugs, medicaments and biological substances; Z79.899 Other long term (current) drug therapy; I25.119 Atherosclerotic heart disease of native coronary artery with unspecified angina pectoris; E78.00 Pure hypercholesterolemia, unspecified; I10 Essential (primary) hypertension; J44.9 Chronic obstructive pulmonary disease, unspecified; F17.210 Nicotine dependence, cigarettes, uncomplicated
CPT/HCPCS: 36415; 80053; 84484; 85025; 85610; 93005; 96365; 96366; 99282; J3480

== ENCOUNTER 2019-04-24 18:45 | Emergency (ER) | payer MEDICARE, MEDICAID ==
--- NOTE | 2019-04-24 20:42 | ED ---
Upper Extremity Pain - HPI Summary HPI Summary: Patient complains of chronic right shoulder pain status post rotator cuff surgery 4 months ago. Patient states he fell 2 days post surgery and has had chronic pain since. Patient has been evaluated by or throw twice since and advised to go to PT which patient did not. Patient states he also had 2 episodes where his arm went today for couple minutes at a time. Those symptoms have resolved prior to arrival. Denies new trauma, any other pain, injury or symptoms. Medical history is HTN. - History of Current Complaint Chief Complaint: MARGOhouldAida Stated Complaint: RT SHOULDER PAIN PER PT Time Seen by Provider: 04/24/19 19:43 Hx Obtained From: Patient Mechanism Of Injury: Unknown Onset/Duration: Started Hours Ago Timing: Intermittent, Lasting Minutes Severity Initially: Moderate Pain Location: Shoulder Character: Dull, Aching, Throbbing Aggravating Factor(s): Movement Alleviating Factor(s): Nothing Associated Signs & Symptoms: Positive: Negative - Allergies/Home Medications Allergies/Adverse Reactions: Allergies Allergy/AdvReac Type Severity Reaction Status Date / Time etodolac Allergy Anaphylatic Verified 03/15/19 16:23 Shock ketorolac [From Toradol] Allergy Anaphylatic Verified 03/15/19 16:23 Shock phenytoin [From Dilantin] Allergy Anaphylatic Verified 03/15/19 16:23 Shock tequilla Allergy Anaphylatic Uncoded 03/15/19 16:23 Shock PMH/Surg Hx/FS Hx/Imm Hx Endocrine/Hematology History: Denies: Hx Anticoagulant Therapy, Hx Blood Disorders, Hx Diabetes, Hx Thyroid Disease Cardiovascular History: Reports: Hx Angina, Hx Coronary Artery Disease, Hx Hypercholesterolemia, Hx Hypertension, Hx Myocardial Infarction, Other Cardiovascular Problems/Disorders - cva Denies: Hx Pacemaker/ICD, Hx Valvular Heart Disease Respiratory History: Reports: Hx Chronic Obstructive Pulmonary Disease (COPD) Denies: Hx Asthma GI History: Reports: Hx Ulcer History: Denies: Hx Renal Disease Musculoskeletal History: Reports: Hx Arthritis - per pt, bodywide Sensory History: Denies: Hx Hearing Aid Neurological History: Reports: Hx CVA, Hx Seizures, Other Neuro Impairments/ Disorders - BRAIN TUMOR Denies: Hx Dementia Psychiatric History: Denies: Hx Panic Disorder, Hx Substance Abuse - Cancer History Cancer Type, Location and Year: 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 Hx Chemotherapy: No Hx Radiation Therapy: No - Surgical History Surgery Procedure, Year, and Place: BRAIN-STEALTH & BIOPSIES(SEVERAL) @ [facility]; BOTH ELBOWS; Rt SHOULDER-ROTATOR; BOTH KNEES ACL REPAIR, BILAT KNEE REPLACEMENT - Immunization History Date of Tetanus Vaccine: Unsure Date of Influenza Vaccine: no Infectious Disease History: No Infectious Disease History: Reports: Hx of Known/Suspected MRSA - Right arm lump , 2002 Denies: Hx Clostridium Difficile, Hx Hepatitis, Hx Human Immunodeficiency Virus (HIV), Hx Shingles, Hx Tuberculosis, Hx Known/Suspected VRE, Hx Known/ Suspected VRSA, History Other Infectious Disease, Traveled Outside the [place] in Last 30 Days - Family History Known Family History: Positive: Cardiac Disease, Hypertension, Diabetes, Other - [place] - Social History Alcohol Use: None Hx Substance Use: No Substance Use Type: Reports: None Hx Tobacco Use: Yes Smoking Status (MU): Light Every Day Tobacco Smoker Type: Cigarettes Amount Used/How Often: 1 ppd Review of Systems Constitutional: Negative Eyes: Negative ENT: Negative Cardiovascular: Negative Respiratory: Negative Gastrointestinal: Negative Genitourinary: Negative Musculoskeletal: Other Skin: Negative Neurological: Negative Psychological: Normal All Other Systems Reviewed And Are Negative: Yes Physical Exam - Summary Physical Exam Summary: No ecchymosis, erythema, deformity, swelling noted to right shoulder or right upper extremity. Professor Of Counseling strength normal. PMS intact distally. Patient able to abduct up to shoulder level. Triage Information Reviewed: Yes Vital Signs On Initial Exam: Initial Vitals Temp Pulse Resp BP Pulse Ox 97.8 F 77 16 99/79 97 04/24/19 19:03 04/24/19 19:03 04/24/19 19:03 04/24/19 19:03 04/24/19 19:03 Vital Signs Reviewed: Yes Appearance: Positive: Well-Appearing Skin: Positive: Warm Head/Face: Positive: Normal Head/Face Inspection Eyes: Positive: Normal Neck: Positive: Supple Respiratory/Lung Sounds: Positive: Clear to Auscultation Cardiovascular: Positive: Normal Abdomen Description: Positive: Nontender Musculoskeletal: Positive: Normal Neurological: Positive: Normal Psychiatric: Positive: Normal AVPU Assessment: Alert - Hollister Coma Scale Best Eye Response: 4 - Spontaneous Best Motor Response: 6 - Obeys Commands Best Verbal Response: 5 - Oriented Coma Scale Total: 15 Diagnostics - Vital Signs Vital Signs Temp Pulse Resp BP Pulse Ox 04/24/19 20:00 73 96 04/24/19 19:55 75 94/72 96 04/24/19 19:41 76 94/72 97 04/24/19 19:40 76 95 04/24/19 19:07 97.8 F 77 18 99/79 97 04/24/19 19:03 97.8 F 77 16 99/79 97 - Laboratory Result Diagrams: 04/24/19 20:51 04/24/19 20:51 Lab Statement: Any lab studies that have been ordered have been reviewed, and results considered in the medical decision making process. Course/Dx - Course Course Of Treatment: Patient complains of chronic right shoulder pain status post rotator cuff surgery 4 months ago. Patient states he fell 2 days post surgery and has had chronic pain since. Patient has been evaluated by or throw twice since and advised to go to PT which patient did not. Patient states he also had 2 episodes where his arm went today for couple minutes at a time. Those symptoms have resolved prior to arrival. Denies new trauma, any other pain, injury or symptoms. Medical history is HTN. Vital signs within normal limits. X-ray right shoulder negative. Patient eloped while CT C-spine results are pending. No acute findings on CT of cervical spine. Low- attenuation lesion noted in right temporal lobe and basal ganglia region, incompletely assessed. Correlate with prior brain CT/MRI and clinical history. Patient eloped, but plain of no relevant symptoms. - Diagnoses Provider Diagnoses: Chronic right shoulder pain Discharge ED - Sign-Out/Discharge Documenting (check all that apply): Patient Departure Patient Received Moderate/Deep Sedation with Procedure: No - Discharge Plan Condition: Stable Disposition: ELOPEMENT Referrals: Benja Lowery MD [Primary Care Provider] - - Billing Disposition and Condition Condition: STABLE Disposition: Elopement
[2019-04-24 21:37] LABS: ABS Eosinophils 0.1 10^3/ul (0-0.6); ABS Lymphocytes 1.8 10^3/ul (1.0-4.8); ABS Monocytes 0.4 10^3/ul (0-0.8); ABS Neutrophils 4.1 10^3/ul (1.5-7.7); Eosinophil % 1.9 %; Hematocrit 37 % (42-52); Hemoglobin 13.3 g/dL (14.0-18.0); Lymphocyte % 27.7 %; Mean Corpuscular HGB Conc 36 g/dL (31-36); Mean Corpuscular Hemoglobin 32 pg (27-31); Mean Corpuscular Volume 90 fL (80-94); Mean Platelet Volume 7.6 fL (7.4-10.4); Nucleated Red Blood Cells % 0.1; Platelet Count 191 10^3/uL (150-450); Red Blood Count 4.11 10^6 /uL (4.18-5.48); Red Cell Distribution Width 14 % (10-15); White Blood Count 6.5 10^3/uL (3.5-10.8)
[2019-04-24 21:52] LABS: Albumin 4.2 g/dL (3.2-5.2); Albumin/Globulin Ratio 2.3 (1-3); BUN/Creatinine Ratio 20.3 (8-20); C Reactive Protein 2.18 mg/L (<8.01); EGFR Non-African American 62.8 (>60); Globulin 1.8 g/dL (2-4); Potassium 3.5 mmol/L (3.5-5.0); Total Bilirubin 0.3 mg/dL (0.2-1.0)
[2019-04-24 22:40] VITALS: BP 0/0
== END 2019-04-24 22:39 | disposition left against medical advice (07) ==
LOC: ED 18:45
DX: G89.28 Other chronic postprocedural pain (principal); M25.511 Pain in right shoulder; I25.119 Atherosclerotic heart disease of native coronary artery with unspecified angina pectoris; I25.2 Old myocardial infarction; I10 Essential (primary) hypertension; J44.9 Chronic obstructive pulmonary disease, unspecified; Z85.841 Personal history of malignant neoplasm of brain; Z86.73 Personal history of transient ischemic attack (TIA), and cerebral infarction without residual deficits; Z96.653 Presence of artificial knee joint, bilateral; Z88.5 Allergy status to narcotic agent; F17.210 Nicotine dependence, cigarettes, uncomplicated
CPT/HCPCS: 36415; 72125; 80053; 83605; 85025; 86140; 99283

== ENCOUNTER 2023-08-17 13:36 | Inpatient (IN) ==
[2023-08-17] MEDS ORDERED: Midazolam 10 mg/10 ml VIAL 1 mg/ml 10 ml VIAL (10 mg) ONE (13:44)
[2023-08-17] MEDS ORDERED: Succinylcholine 200 mg VIAL 20 mg/ml 10 ml VIAL (200 mg) ONE (13:44)
[2023-08-17] MEDS ORDERED: Rocuronium 50 mg VIAL 10 mg/ml 5 ml VIAL (50 mg) ONE (13:44)
[2023-08-17 13:57] LABS: ABS Lymphocytes 0.6 10^3/uL (1.0-4.8); ABS Monocytes 0.2 10^3/uL (0.0-1.1); ABS Neutrophils 5.3 10^3/uL (1.5-7.6); ABS Nucleated RBC 0.01 10^3/ul; Eosinophil % 0.1 %; Hematocrit 39.8 % (38-53); Hemoglobin 14.4 g/dL (13.2-16.3); Lymphocyte % 9.2 %; Mean Corpuscular Hemoglobin 32.7 pg (27-33); Mean Corpuscular Hgb Conc 36.1 g/dL (31-36); Mean Corpuscular Volume 90.5 fL (80-97); Mean Platelet Volume 6.7 fL (7.5-11.2); Nucleated Red Blood Cells % 0.1 %/100WBC (0.0-0.8); Platelet Count 102 10^3/uL (150-450); Red Cell Distribution Width 14.3 % (12-17); White Blood Count 6.1 10^3/uL (3.6-10.2)
[2023-08-17] MEDS ORDERED: Naloxone 0.4 mg VIAL 0.4 mg/ml 1 ml VIAL IV PUSH ONE (13:58)
[2023-08-17] MEDS ORDERED: Midazolam 2 mg/2 ml VIAL 1 mg/ml 2 ml VIAL (2 mg) IV SLOW PU ONE ×2 (13:59→14:02)
[2023-08-17] MEDS ORDERED: Succinylcholine 200 mg VIAL 20 mg/ml 10 ml VIAL (200 mg) IV ONE (14:01)
[2023-08-17] MEDS ORDERED: Etomidate 20 mg/10 ml 2 MG/ML 10 ml VIAL IV ONE (14:01)
[2023-08-17] MEDS ORDERED: Midazolam PREMIXBAG 1 MG/ML NS 100 ML IV SCH (14:05)
[2023-08-17 14:16] LABS: ALT 30 U/L (7-52); AST 24 U/L (13-39); Albumin 4.6 g/dL (3.2-5.2); Albumin/Globulin Ratio 2.2 (1-3); Alkaline Phosphatase 48 U/L (35-149); Anion Gap 7 mmol/L (2-16); Blood Urea Nitrogen 13 mg/dL (6-24); CO2 Carbon Dioxide 24 mmol/L (22-32); Chloride 104 mmol/L (101-111); Creatinine, Serum 1.07 mg/dL (0.67-1.17); Globulin 2.1 g/dL (2-4); Glucose 157 mg/dL (70-100); Potassium 3.9 mmol/L (3.5-5.0); Sodium 135 mmol/L (135-145); Total Bilirubin 0.5 mg/dL (0.2-1.0); Total Protein 6.7 g/dL (6.4-8.9); eGFR CKD-EPI 83.5 (>60)
[2023-08-17 14:17] LABS: Activated Partial Thrombo Time 29.8 seconds (26.0-38.0); INR 1.09 (0.83-1.13)
[2023-08-17 14:21] LABS: High Sens Troponin Baseline 4 pg/mL (<20)
[2023-08-17 14:43] LABS: Alcohol, S < 13 mg/dL (<13)
[2023-08-17] MEDS ORDERED: levETIRAcetam 1000MG IVPREMIX 1,000 MG/100 ML BAG IVPB ONE ×2 (14:44→14:46)
[2023-08-17] MEDS ORDERED: Iodixanol (CONTRAST) 320 MG/ML 100 ML SDV IV ONE (14:44)
[2023-08-17] MEDS: levETIRAcetam 1000MG IVPREMIX 1,000 MG/100 ML BAG IVPB SCH ×2 (15:00→15:16)
[2023-08-17 15:02] LABS: PCO2 Arterial 41 mmHg (35-45); PO2 Arterial 199 mmHg (80-100)
[2023-08-17] MEDS ORDERED: Propofol 10 mg/ml 100 ML BTL 1,000 MG/100 ML BTL ONE (15:30)
[2023-08-17 15:36] LABS: Urine Appearance Clear; Urine Bilirubin 1+ (Negative); Urine Blood Negative (Negative); Urine Color Yellow; Urine Glucose Negative (Negative); Urine Ketones Negative (Negative); Urine Nitrite Negative (Negative); Urine Protein 1+(30 mg/dL) (Negative); Urine Specific Gravity 1.042 (1.002-1.030); Urine Urobilinogen Negative (Negative)
[2023-08-17] MEDS: Propofol 10 mg/ml 100 ML BTL 1,000 MG/100 ML BTL IV SCH ×2 (15:37→20:56)
[2023-08-17 15:38] LABS: Urine Bacteria Absent (Absent); Urine Red Blood Cell Trace(0-2/hpf) (Absent); Urine White Blood Cell Trace(0-5/hpf) (Absent)
[2023-08-17 15:51] LABS: Urine Benzodiazepine Screen Presumptive Positive (None Detect); Urine Cannabinoids Screen None Detected (None Detect); Urine Opiates Screen None Detected (None Detect)
[2023-08-17] MEDS ORDERED: Sulfur Hexaflouride MICROSPHR 25 MG VIAL ONE (16:43)
[2023-08-17 19:01] LABS: Urine Buprenorphine Screen None Detected (None Detect); Urine Fentanyl Screen None Detected (None Detect); Urine Hydrocodone Screen None Detected (None Detect)
[2023-08-17 19:15] LABS: High Sensitivity Troponin 1 Hr 5 pg/mL (<20)
[2023-08-17] MEDS ORDERED: fentaNYL INFUSION 50 mcg/mL VL 2,500 MCG/50 ML VIAL IV SCH (20:00)
[2023-08-17] MEDS: Enoxaparin 40 MG/0.4 ML SYR SUBCUT SCH (20:30)
[2023-08-17] MEDS: Chlorhexidine MOUTHWASH 0.12% 15 ML UDC SWISH SPIT SCH (20:49)
[2023-08-18] MEDS: Propofol 10 mg/ml 100 ML BTL 1,000 MG/100 ML BTL IV SCH ×5 (00:06→12:24)
[2023-08-18] MEDS: Chlorhexidine MOUTHWASH 0.12% 15 ML UDC SWISH SPIT SCH ×6 (02:14→17:02)
[2023-08-18] MEDS: levETIRAcetam IV 1,500 MG in NS 0.9% 100 ml BAG 100 ML IVPB SCH ×2 (02:42→15:34)
[2023-08-18] MEDS ORDERED: Lactated Ringers 1000 ml BAG 1,000 ML IV ONE (04:39)
[2023-08-18 05:59] LABS: Potassium 3.5 mmol/L (3.5-5.0)
[2023-08-18 06:00] LABS: Albumin 3.9 g/dL (3.2-5.2); Calcium 8.4 mg/dL (8.6-10.3); Creatinine, Serum 0.87 mg/dL (0.67-1.17); Magnesium 1.9 mg/dL (1.9-2.7); Total Bilirubin 0.4 mg/dL (0.2-1.0); Total Protein 5.9 g/dL (6.4-8.9); eGFR CKD-EPI 103.8 (>60)
[2023-08-18 06:34] LABS: Hematocrit 38.4 % (38-53); Hemoglobin 13.5 g/dL (13.2-16.3); Mean Corpuscular Hemoglobin 32.8 pg (27-33); Mean Corpuscular Hgb Conc 35.3 g/dL (31-36); Mean Corpuscular Volume 92.9 fL (80-97); Red Blood Count 4.13 10^6/uL (4.06-5.63); Red Cell Distribution Width 14.7 % (12-17); White Blood Count 4.8 10^3/uL (3.6-10.2)
[2023-08-18 07:49] LABS: ABS Lymphocytes 0.8 10^3/uL (1.0-4.8); ABS Monocytes 0.3 10^3/uL (0.0-1.1); ABS Neutrophils 3.7 10^3/uL (1.5-7.6); ABS Nucleated RBC 0.01 10^3/ul; Eosinophil % 0.8 %; Lymphocyte % 15.9 %; Mean Platelet Volume 6.9 fL (7.5-11.2); Nucleated Red Blood Cells % 0.2 %/100WBC (0.0-0.8); Platelet Count 91 10^3/uL (150-450)
[2023-08-18] MEDS ORDERED: Pantoprazole VIAL 40 MG VIAL IV SCH (09:00)
[2023-08-18] MEDS ORDERED: Potassium Phosphate IV 15 MMOL in NS 0.9% 250 ml 250 ML IVPB ONE (12:03)
[2023-08-18] MEDS ORDERED: Acetaminophen IV 1 GM/100ML 1,000 MG/100 ML BAG IV PRN (16:43)
[2023-08-18] MEDS ORDERED: oxyCODONE/Acetamin 10/325(NF) TAB PO PRN (17:54)
[2023-08-18] MEDS: Enoxaparin 40 MG/0.4 ML SYR SUBCUT SCH (19:46)
[2023-08-19] MEDS: levETIRAcetam IV 1,500 MG in NS 0.9% 100 ml BAG 100 ML IVPB SCH (02:05)
[2023-08-19 05:40] LABS: Hemoglobin 11.8 g/dL (13.2-16.3); Mean Corpuscular Hemoglobin 33.3 pg (27-33); Mean Corpuscular Hgb Conc 36.7 g/dL (31-36); Mean Corpuscular Volume 90.8 fL (80-97); Mean Platelet Volume 6.7 fL (7.5-11.2); Platelet Count 88 10^3/uL (150-450); Red Blood Count 3.53 10^6/uL (4.06-5.63); Red Cell Distribution Width 14.5 % (12-17); White Blood Count 5.4 10^3/uL (3.6-10.2)
[2023-08-19 05:52] LABS: Albumin 3.9 g/dL (3.2-5.2); Albumin/Globulin Ratio 1.7 (1-3); Calcium 8.4 mg/dL (8.6-10.3); Creatinine, Serum 0.8 mg/dL (0.67-1.17); Globulin 2.3 g/dL (2-4); Magnesium 2.1 mg/dL (1.9-2.7); Phosphorus 1.6 mg/dL (2.5-5.0); Potassium 3.4 mmol/L (3.5-5.0); Total Protein 6.2 g/dL (6.4-8.9); eGFR CKD-EPI 106.5 (>60)
[2023-08-19] MEDS ORDERED: Potassium Phosphate IV 30 MMOL in NS 0.9% 250 ml 250 ML IVPB ONE (07:15)
[2023-08-19] MEDS ORDERED: Nicotine GUM 2MG FRUIT FLAVOR PO PRN (10:21)
[2023-08-19] MEDS ORDERED: Nicotine Lozenge mini 4 MG LOZNG.MINI MT PRN ×2 (10:23→10:28)
[2023-08-19] MEDS ORDERED: Nicotine PATCH 21 MG/24 HR PATCH TRANSDERM SCH (11:00)
[2023-08-19] MEDS: Enoxaparin 40 MG/0.4 ML SYR SUBCUT SCH (21:28)
[2023-08-20 06:40] LABS: Hematocrit 34.9 % (38-53); Hemoglobin 12.3 g/dL (13.2-16.3); Mean Corpuscular Hemoglobin 33.1 pg (27-33); Mean Corpuscular Hgb Conc 35.3 g/dL (31-36); Mean Corpuscular Volume 93.6 fL (80-97); Red Blood Count 3.73 10^6/uL (4.06-5.63); Red Cell Distribution Width 14.1 % (12-17); White Blood Count 3.9 10^3/uL (3.6-10.2)
[2023-08-20 07:21] LABS: ALT 25 U/L (7-52); Albumin/Globulin Ratio 1.5 (1-3); Alkaline Phosphatase 45 U/L (35-149); Anion Gap 10 mmol/L (2-16); Blood Urea Nitrogen 12 mg/dL (6-24); CO2 Carbon Dioxide 18 mmol/L (22-32); Calcium 8.4 mg/dL (8.6-10.3); Chloride 108 mmol/L (101-111); Creatinine, Serum 0.84 mg/dL (0.67-1.17); Globulin 2.6 g/dL (2-4); Glucose 84 mg/dL (70-100); Sodium 136 mmol/L (135-145); Total Bilirubin 0.8 mg/dL (0.2-1.0); Total Protein 6.6 g/dL (6.4-8.9); eGFR CKD-EPI 104.9 (>60)
[2023-08-20 07:55] LABS: Magnesium 2.2 mg/dL (1.9-2.7); Phosphorus 1.6 mg/dL (2.5-5.0); Potassium Redraw 3.6 mmol/L (3.5-5.0)
[2023-08-20 08:52] LABS: ABS Eosinophils 0.1 10^3/uL (0.0-0.5); ABS Lymphocytes 0.8 10^3/uL (1.0-4.8); ABS Monocytes 0.3 10^3/uL (0.0-1.1); ABS Neutrophils 2.7 10^3/uL (1.5-7.6); ABS Nucleated RBC 0.02 10^3/ul; Eosinophil % 3.3 %; Lymphocyte % 19.7 %; Mean Platelet Volume 8.3 fL (7.5-11.2); Nucleated Red Blood Cells % 0.6 %/100WBC (0.0-0.8); Platelet Count 34 10^3/uL (150-450)
[2023-08-20 10:58] LABS: Platelet Count 91 10^3/uL (150-450)
[2023-08-20 11:52] LABS: Mean Platelet Volume 6.8 fL (7.5-11.2)
[2023-08-20] MEDS ORDERED: Potassium Phosphate IV 15 MMOL in NS 0.9% 250 ml 250 ML IVPB ONE (13:00)
[2023-08-20 13:57] VITALS: BP 146/92
[2023-08-20] MEDS ORDERED: Potassium & Sodium Phos 250 mg = 1 PACKET PO SCH (14:00)
[2023-08-25 13:35] LABS: Noroxycodone Conf, Urine 4703 ng/mL (Cutoff: 25); Oxycodone Conf, Urine 1042 ng/mL (Cutoff: 25); Oxycodone Interpretation, U Positive.
== END 2023-08-20 15:20 | disposition home or self-care (01) | DRG 917 ==
LOC: ED 13:36 → EDHOLD 15:10 → ICU 18:25 → MEDTELE 08-19 09:14
PROVIDERS: ADMIT Student in an Organized Health Care Education/Training Program; ATTEND Student in an Organized Health Care Education/Training Program